=== PATIENT | male | born 1945 | race Caucasian/White ===

== ENCOUNTER 2025-01-31 07:41 | Outpatient (CLI) | payer MEDICARE, SELFPAY ==
--- OUTSIDE RECORDS SUMMARY | 2023-02-10 10:07 | XMS_ITS | Encounter Summary ---
Author Organization [facility] Healthcare Address [address] [place] [address] Care Team Providers Care Glaze Supervisor Name Role Phone Chay Chester MD Primary Care Provider [phone] Encounter Details Date Type Department Care Team (Late st Contact Info) Description 02/10/2023 10:07 AM CDT Hospital Encounter [facility] [address] [address] Social History Tobacco Use Types Packs/Day Years Used Date Smoking Tobacco: Former Cigarettes 0.5 11 Smokeless Tobacco: Former Quit: 10/24/2016 Comments:Smoking History Pac ks/day: 1 Packs Alcohol Use Standard Drinks/Week Comments Yes 0 (1 standard drink = 0.6 oz pur e alcohol) occasionally Social Connection and Isolation Panel Answer Date Recorded Frequency of Communication w ith Friends and Family More than three times a week 12/21/2018 Frequency of Social Gatherin gs with Friends and Family More than three times a week 12/21/2018 Attends Anabaptist Services More than 4 times per year 12/21/2018 Active Member of Clubs or Organizations Yes 12/21/2018 Attends Club or Organization Meetings More than 4 times per year 12/21/2018 Marital Status 12/21/2018 AUDIT-C Answer Date Recorded Q1: How often do you have a drink containing alc ohol? 2-3 times a week 10/28/2022 Q2: How many drinks containi ng alcohol do you have on a typical day when you are drinking? 1 or 2 10/28/2022 Frequency of Binge Drinking Not on file 10/08 Overall Financial Resource Strain (CARDIA) Answe r Date Recorded Difficulty of Paying Living Expenses Not hard at all 12/21/2018 PHQ-2 Answer Date Recorded PHQ-2 Total Score (If total score is 3 or more points, staff should administer the PHQ-9) 0 01/04/2025 PRAPARE - Transportation Answer Date Re corded Lack of Transportation (Medical) No 12/21/2018 Lack of Transportation (Non-Medical) No 12/21/2018 PHQ-9 Answer Date Recorded PHQ-9 Total Score 2 01/04/2025 Personal Safety Answer Date Recorded Have you ever been in or are you currently in a harmful physical or emotional relationship or is someone making you feel afraid or unsafe? 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:59 PM WOOD MILL SUPERVISOR Gender Identity Not on file Sexual Orientation Not on file documented as of this encounter Plan of Treatment Not on file documented as of this encounter Procedures Procedure Name Priority Date/Time Associated Diagnosis Comments XR KNEE BILATERAL 1 OR 2 VIEWS Schedule Routine, Read Routine (OP Routine) 02/10/2023 11:18 AM CDT Primary osteoarthritis of both knees documented in this encounter Results * XR Knee Bilateral 1 or 2 Views (02/10/2023 11:18 AM CDT) Anatomical Region Laterality Modality Lower Extremities, Knee Bilateral Computed Radiography Narrative 02/10/2023 1:12 PM CDT AP lateral views of both knees reveal the components to be in expected position without any obvious change there was no signs of wear or loosening us Reza Gonzalez MD IMG XR PROCEDURES Final Res ult documented in this encounter Visit Diagnoses Not on filedocumented in this encounter Additional Health Concerns Infection Onset Date Last Indicated Resolved Time COVID: Suspected 02/14/2024 02/14/2024 02/14/2024 11:31 AM CDT COVID19 02/14/2024 02/14/2024 02/24/2024 3:05 AM CDT COVID: Recovered Comment:Added based on recent COVID infection. 02/24/2024 02/28/2024 05/24/2024 3:[address] COVID: Suspected 04/16/2024 04/16/2024 04/16/2024 2:48 PM WOOD MILL SUPERVISOR COVID: Suspected 04/26/2024 04/26/2024 04/26/2024 2:56 PM WOOD MILL SUPERVISOR documented as of this encounter Care Teams Glaze Supervisor Relationship Specialty Start Date End Date Chay Chester MD PCP - General 08/06/16 08/09/23 documented as of this encounter
--- OUTSIDE RECORDS SUMMARY | 2024-03-29 09:30 | XMS_ITS ---
Author Organization [facility] Address [address] [place], [place] [id number] Care Team Providers Care Product Responsibility Liaison Name Role Phone Chay Chester Primary Care Provider Tony Darby Unavailable [phone] Encounters Encounter Location Date Provider Diagnosis [facility] [address] [place], [place] [id number] 03/29/2024 Tony Harris Plan Of Treatment Next Appt Details Provider Name:Tony Harris , 04/10/2025 02:15:00 PM, [address], [place], [place], [id number], Progress Notes * Danelle DICKSONOB:1945 ([age] yo M)Acc No.[id number]:03/29/2024 Progress Notes Patient: Miguel Angel HOLL[place]ORTH Provider: Suyapa Harris MD :1945 A ge:78 Y S ex:Male Date:03/29/2024 Address[facility] [facility] Pcp:Chay Chester Subjective: * Chief Complaints: * * Medical History: Objective: * Vitals: Assessment: Plan: * Treatment: * * Electronic signature of Sharad Harris MD on 01/31/2025 at 07:49 AM CDT Sign off status: Pending * Provider: Suyapa Harris MD Date: 05/29/2023 Generated for Printi ng/Faxing/eTransmitting on: 0 01/31/2025 07:49 AM CDT
--- OUTSIDE RECORDS SUMMARY | 2024-04-09 10:45 | XMS_ITS ---
Author Organization [facility] Address [address] [place], [place] [address] Care Team Providers Care Geothermal Operating Engineer Name Role Phone Chay Chester Primary Care Provider Tony Darby Unavailable [phone] Allergies No Known Allergies REASON FOR VISIT Follow - Up Medications Medication SIG (Take, Route, Frequency, Duration) Notes Start Date End Date Status traMADol HCl 50 MG 1 tablet as needed O rally 4 times a day; Duration: 15 days 11/21/2023 Active Losartan Potassium-HCTZ 50-12.5 MG 1 tablet Orally Once a day Active Levothyroxine Sodium 50 MCG 1 tablet in the morning on an empty stomach Orally Once a day Active Xarelto 20 MG 1 tablet with food O rally Once a day Active Allopurinol 100 MG 1 tablet orally once daily Active Tamsulosin HCl 0.4 MG as directed Orally nightly Active Tolterodine Tartrate ER 4 MG 1 capsule Orally Once a day Active Ozempic (1 MG/DOSE) 4 MG/3ML as directed Subcutaneous once weekly Active Fluticasone Propionate 50 MCG/ACT 2 sprays (1 spray in each nostril) Nasally Once a day Active dilTIAZem HCl ER 180 MG 1 tablet Orally Once a day Active ZyrTEC 10 MG 1 tablet Orally Once a day Active CeleXA 40 MG 0.5 tablet Orally On ce a day Active Requip 0.25 MG 1 tablet Orally nigh tly prn Active Simvastatin 10 MG 1 tablet Orally Once a day Active Gabapentin 300 MG 1 capsule Orally twi ce a day Active traZODone HCl 50 MG 1 tablet at bedtime as needed Orally as directed Active Encounters Encounter Location Date Provider Diagnosis [facility] [address] [place], [place] [id number] 04/09/2024 Tony Harris CKD (chronic kidney disease) N18.9 ; HTN (hypertension) I10 and DM (diabetes mellitus) E11.9 Assessments Encounter Date Diagnosis (ICD Code) Assessment Notes Treatment Notes Treatment Clinical Notes Section Notes 04/09/2024 CKD (chronic kidney disease) (ICD-10 - N18.9) 04/09/2024 HTN (hypertension) (ICD-10 - I10) 04/09/2024 DM (diabetes mellitus) (ICD-10 - E11.9) Plan Of Treatment Next Appt Details Provider Name:Tony Harris , 04/10/2025 02:15:00 PM, [address] [facility], [place], [place], [id number], Progress Notes * Danelle DICKSONOB:1945 ([age] yo M)Acc No.[id number]:04/09/2024 Progress Notes Patient: Miguel Angel HOLLINGSWORTH Provider: Suyapa Harris MD :1945 A ge:78 Y S ex:Male Date:04/09/2024 Address:[address] [place] [address] [facility] Pcp:Chay Chester Subjective: * Chief Complaints: * 1 . Follow - Up. * Medical History: C KD, DM, HTN, Atrial fib, BPH. * Medications: T aking Allopurinol 100 MG Tablet 1 tablet orally once daily , Taking traZODone HCl 50 MG Tablet 1 tablet at bedtime as needed Orally as directed , Taking Simvastatin 10 MG Tablet 1 tablet Orally Once a day , Taking Requip 0.25 MG Tablet 1 tablet Orally nightly prn , Taking CeleXA 40 MG Tablet 0.5 tablet Orally Once a day , Taking ZyrTEC 10 MG Tablet 1 tablet Orally Once a day , Taking Gabapentin 300 MG Capsule 1 capsule Orally twice a day , Taking dilTIAZem HCl ER 180 MG Tablet Extended Release 24 Hour 1 tablet Orally Once a day , Taking Fluticasone Propionate 50 MCG/ACT Suspension 2 sprays (1 spray in each nostril) Nasally Once a day , Taking Ozempic (1 MG/DOSE) 4 MG/3ML Solution Pen-injector as directed Subcutaneous once weekly , Taking Tolterodine Tartrate ER 4 MG Capsule Extended Release 24 Hour 1 capsule Orally Once a day , Taking Tamsulosin HCl 0.4 MG Capsule Extended Release as directed Orally nightly , Taking Xarelto 20 MG Tablet 1 tablet with food Orally Once a day , Taking Levothyroxine Sodium 50 MCG Tablet 1 tablet in the morning on an empty stomach Orally Once a day , Taking Losartan Potassium-HCTZ 50-12.5 MG Tablet 1 tablet Orally Once a day , Taking traMADol HCl 50 MG Tablet 1 tablet as needed Orally 4 times a day , Medication List reviewed and reconciled with the patient * Allergies: N .K.D.A. Objective: * Vitals: Assessment: * Assessment: 1. C KD (chronic kidney disease) - N18.9 (Primary) 2 . H TN (hypertension) - I10 3 . D M (diabetes mellitus) - E11.9 Plan: * Treatment: * * Electronic signature of Sharad Harris MD on 01/31/2025 at 07:49 AM CDT Sign off status: Pending * Provider: Suyapa Harris MD Date: 1 06/10/2023 Generated for Nenita choi/Joyce/Marta on: 0 01/31/2025 07:49 AM CDT
--- OUTSIDE RECORDS SUMMARY | 2025-01-31 07:49 | XMS_ITS | Encounter Summary ---
Author Organization [facility] Healthcare Address [address] [place] [address] Care Team Providers Care Cissp Name Role Phone Jerson Ortega MD Primary Care Provider [phone] Encounter Details Date Type Department Care Team (Late st Contact Info) Description 12/07/2024 Results Follow-Up [facility] Primary Care at [address] [address] Jerson Ortega MD [address] [place] [address] PSA screen Social History Tobacco Use Types Packs/Day Years [...] than three times a week 12/21/2018 Attends Scientologist Services More than 4 times per year [...] points, staff should administer the PHQ-9) 0 09/03/2024 PRAPARE - Transportation Answer Date Re corded Lack of Transportation (Medical) No 12/21/2018 Lack of Transportation (Non-Medical) No 12/21/2018 Personal Safety Answer Date Recorded Have you ever been in or are you currently in a harmful physical or emotional relationship or is someone making you feel afraid or unsafe? 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
--- OUTSIDE RECORDS SUMMARY | 2025-01-31 07:49 | XMS_ITS | Encounter Summary ---
Author Organization [facility] Healthcare Address [address] [place] [address] Care Team Providers Care Lead Teacher Name Role Phone Jerson Ortega MD Primary Care Provider [phone] Encounter Details Date Type Department Care Team (Late st Contact Info) Description 01/21/2025 Telephone Family Physicians [facility] [address] [place] [address] Jerson Ortega MD [address] [place] [address] Social History Tobacco Use Types Packs/Day Years [...] than three times a week 12/21/2018 Attends Moravian Services More than 4 times per year [...] on file Legal Sex Male 3:59 PM AGRICULTURE SCIENTIST Gender Identity Not on file Sexual Orientation Not on file documented as of this encounter Miscellaneous Notes * Telephone Encounter - Brando Mann - 01/21/2025 10:49 AM CDT error documented in this encounter Plan of Treatment Not on file documented as of this encounter Visit Diagnoses Not on filedocumented in this encounter Care Teams Lead Teacher Relationship Specialty Start Date End Date [place] [address] [place] [address] PCP - General Family Medicine 08/10/23 documented as of this encounter
--- OUTSIDE RECORDS SUMMARY | 2025-01-31 07:49 | XMS_ITS | Encounter Summary ---
Author Organization [facility] Healthcare Address [address] [place] [address] Care Team Providers Care Transformation Lead Name Role Phone Chay Chester MD Primary Care Provider [phone] Jerson Ortega MD Primary Care Provider [phone] Diamante Kang MA Unavailable [phone] Encounter Details Date Type Department Care Team (Late st Contact Info) Description 03/10/2020 Telephone [facility] [address] [place] [address] Melani Mejia, [place] Social History Tobacco Use Types Packs/Day Years Used Date Smoking Tobacco: Former Cigarettes 0.5 11 0 01/11/2007 - 01/11/2018 Smokeless Tobacco: Former Quit: 10/24/2016 Comments:Smoking History [...] than three times a week 12/21/2018 Attends Shinto Services More than 4 times per year 12/21/2018 Active Member of Clubs or Organizations Yes 12/21/2018 Attends Club or Organization Meetings More than 4 times per year 12/21/2018 Marital Status 12/21/2018 Overall Financial Resource Strain (CARDIA) Answe r Date Recorded Difficulty of Paying Living Expenses Not hard at all 12/21/2018 PHQ-2 Answer Date Recorded PHQ-2 Score 4 02/29/2020 PRAPARE - Transportation Answer Date Re corded Lack of Transportation (Medical) No 12/21/2018 Lack of Transportation (Non-Medical) No 12/21/2018 Sex and Gender Information Value Date Recorded Sex Assigned at Not on file Legal Sex Male 3:59 PM MAINTENANCE COORDINATOR Gender Identity Not on file Sexual Orientation Not on file documented as of this encounter Plan of Treatment Not on file documented as of this encounter Visit Diagnoses Not on filedocumented in this encounter Additional Health Concerns Infection Onset Date Last Indicated Resolved Time COVID: Suspected 05/04/2022 05/04/2022 05/04/2022 5:00 PM MAINTENANCE COORDINATOR COVID: Suspected 02/14/2024 02/14/2024 02/14/2024 11:31 AM CDT COVID19 02/14/2024 02/14/2024 02/24/2024 3:05 AM CDT COVID: Recovered Comment:Added based on recent COVID infection. 02/24/2024 02/28/2024 05/24/2024 3:[address] COVID: Suspected 04/16/2024 04/16/2024 04/16/2024 2:48 PM MAINTENANCE COORDINATOR COVID: Suspected 04/26/2024 04/26/2024 04/26/2024 2:56 PM MAINTENANCE COORDINATOR documented as of this encounter Care Teams Transformation Lead Relationship Specialty Start Date End Date Chay Chester MD PCP - General 08/06/16 08/09/23 Jerson Ortega MD [address] [place] [address] PCP - General Family Medicine 08/10/23 Diamante Kang MA [address] [place] [address] [address] [place] [address] [employer] Care Piano Teacher 02/13/24 02/13/24 documented as of this encounter
--- OUTSIDE RECORDS SUMMARY | 2025-01-31 07:49 | XMS_ITS | Encounter Summary ---
Author Organization [facility] Address [address] [place] [address] Phone Care Team Providers Care Meter Reader Inspector Name Role Phone Chay Chester MD Primary Care Provider [phone] Jerson Ortega MD Primary Care Provider [phone] Diamante Kang MA Unavailable [phone] Encounter Details Date Type Department Care Team (Late st Contact Info) Description 09/22/2017 Orders Only [facility] ProviderSpencer MD [facility] [place] [address] Social History Tobacco Use Types Packs/Day Years Used Date Smoking Tobacco: Every Day Cigarettes Smokeless Tobacco: Former Quit: 10/24/2016 Comments:Smoking History Pac ks/day: 1 Packs Alcohol Use Standard Drinks/Week Comments Yes 0 (1 standard drink = 0.6 oz pur e alcohol) Sex and Gender Information Value Date Recorded Sex Assigned at Not on file Legal Sex Male 3:59 PM CLIENT SUCCESS MANAGER Gender Identity Not on file Sexual Orientation Not on file documented as of this encounter Plan of Treatment Not on file documented as of this encounter Procedures Procedure Name Priority Date/Time Associated Diagnosis Comments DISCHARGE LABORATORY CUMULATIVE REPORT 09/22/2017 12:00 AM CDT documented in this encounter Results * DISCHARGE LABORATORY CUMULATIVE REPORT (09/22/2017 12:00 AM CDT) Narrative 09/22/2017 12:00 AM CDT Ordered by an unspecified provider. us Historical Provider LAB BLOOD ORDERABLES Lyly l Result documented in this encounter Visit Diagnoses Not on filedocumented in this encounter Additional Health Concerns Infection Onset Date Last Indicated Resolved Time COVID: Suspected 05/04/2022 05/04/2022 05/04/2022 5:00 PM CLIENT SUCCESS MANAGER COVID: Suspected 02/14/2024 02/14/2024 02/14/2024 11:31 AM CDT COVID19 02/14/2024 02/14/2024 02/24/2024 3:05 AM CDT COVID: Recovered Comment:Added based on recent COVID infection. 02/24/2024 02/28/2024 05/24/2024 3:[address] COVID: Suspected 04/16/2024 04/16/2024 04/16/2024 2:48 PM CLIENT SUCCESS MANAGER COVID: Suspected 04/26/2024 04/26/2024 04/26/2024 2:56 PM CLIENT SUCCESS MANAGER documented as of this encounter Care Teams Meter Reader Inspector Relationship Specialty Start Date End Date Chay Chester MD PCP - General 08/06/16 08/09/23 Jerson Ortega MD [address] [place] [address] PCP - General Family Medicine 08/10/23 Diamante Kang MA [address] [place] [address] DR FITZPATRICK [address] [place] [id number] [employer] Care Client Representative 02/13/24 02/13/24 documented as of this encounter
--- OUTSIDE RECORDS SUMMARY | 2025-01-31 07:49 | XMS_ITS | Patient Health Record ---
Author Organization [facility] Address [address] [facility] [address] [place], [place] [id number] Care Team Providers Care Process Manufacturing Engineer Name Role Phone Mannie Chestery Primary Care Provider Tony Darby Unavailable [phone] Allergies No Known Allergies Reason For Referral No Information Medications Medication SIG (Take, Route, Frequency, Duration) Notes Start Date End Date Status Simvastatin 10 MG 1 tablet Orally Once a day Active traZODone HCl 150 MG 1 tablet at bedtime as needed Orally as directed Active CeleXA 40 MG 0.5 tablet Orally On ce a day Active Requip 0.25 MG 1 tablet Orally nigh tly prn Active Gabapentin 300 MG 1 capsule Orally twi ce a day Active ZyrTEC 10 MG 1 tablet Orally Once a day Active Losartan Potassium-HCTZ 50-12.5 MG 1 tablet Orally Once a day Active Umeclidinium [place] 62.5 MCG/ACT 1 puff Inhalation Once a day Active Flexeril 10 MG 1 tablet at bedtime as needed Orally 3 times a day Active Allopurinol 300 MG 1 tablet orally once daily Active Tirzepatide 7.5 MG/0.5ML as directed Subcutaneous inject 0.5ml under the skin every 7 days Active Albuterol Sulfate HFA 108 (90 Base) MCG/ACT 2 puffs Inhalation every 6 hrs Active traMADol HCl 50 MG 1 tablet as needed Orally 4 times a day; Duration: 15 days 11/21/2023 Active Cyanocobalamin 1000 MCG 1 tablet Orally Once a day Active Levothyroxine Sodium 50 MCG 1 tablet in the morning on an empty stomach Orally Once a day Active Montelukast Sodium 10 MG 1 tablet Orally Once a day Active Escitalopram Oxalate 5 MG 1 tablet Orall y Once a day Active Ozempic (1 MG/DOSE) 4 MG/3ML as directed Subcutaneous once weekly Not-Taking Pantoprazole Sodium 40 MG 1 tablet Orall y Once a day Active Ondansetron HCl 4 MG 1 tablet Orally zeus ry 6 hours Active Louise 5-325 MG 1-2 tablets Orally every 4 hrs Active dilTIAZem HCl ER 180 MG 1 tablet Orally Once a day Active Tolterodine Tartrate ER 4 MG 1 capsule Orally Once a day Active Fluticasone Propionate 50 MCG/ACT 2 sprays (1 spray in each nostril) Nasally Once a day Active Vibramycin 100 MG 1 capsule Orally twi ce a day Active Xarelto 20 MG 1 tablet with food Orally Once a day Active Tamsulosin HCl 0.4 MG as directed Orally nightly Active Social History Tobacco Use: Social History Observation Description Date Details (start date - stop date) Current Smoker NA - NA Alcohol: Question Answer Notes Did you have a drink contain ing alcohol in the past year? Yes How often did you have a dri nk containing alcohol in the past year? Two to four times a month (2 points) How many drinks did you have on a typical day when you were drinking in the past year? 1 or 2 (0 points) How often did you have six o r more drinks on one occasion in the past year? Never (0 points) Points 2 Interpretation Negative Smoking Question Answer Notes Are you a: Current smoker How often do you smoke? every day How many cigarettes do you smoke in a day? 6-10 Are you interested in quitting? Thinking about q uitting Problems Problem Type SNOMED Code ICD Code Onset Dates Problem Status W/U Status Risk Notes Problem DM - Diabetes mellitus (62450492) DM (diabetes mellitus) (E11.9) Active confirmed hgba1c 6.4 Problem Atrial fibrillation (15743995) Atrial fibrillation (I48.91) Active confirmed on zarelto Problem Chronic kidney disease (235152167) CKD (chronic kidney disease) (N18.9) Active confirmed creat is stable at 2.3 Problem Obesity (556721602) Obesity (E66.9) Active confirmed pt is crooks s lost 8 lbs Problem Hypertension (17967202) HTN (hypertension) (I10) Active confirmed BP is controlled Vital Signs Heart Rate 82 /min 12/12/2024 Temperature 97.3 degrees Fahrenheit 12/12/2024 Blood pressure diastolic 79 mm Hg 12/12/2024 Height 72 in 12/12/2024 Blood pressure systolic 121 mm Hg 12/12/2024 Weight 282.2 lbs 12/12/2024 BMI 38.27 kg/m2 12/12/2024 Encounters Encounter Location Date Provider Diagnosis [facility] [address] [place], [place] [id number] 05/23/2024 Tony Harris CKD (chronic kidney disease) N18.9 ; HTN (hypertension) I10 ; DM (diabetes mellitus) E11.9 ; Obesity E66.9 and Atrial fibrillation I48.[address] [facility] [id number] [place] [address] [address] [place], [place] [id number] 09/03/2024 Tony Harris CKD (chronic kidney disease) N18.9 ; DM (diabetes mellitus) E11.9 ; HTN (hypertension) I10 ; Obesity E66.9 and Atrial fibrillation I48.91 [facility] [address] [place], [place] [id number] 12/12/2024 Tony Harris CKD (chronic kidney disease) N18.9 ; HTN (hypertension) I10 ; DM (diabetes mellitus) E11.9 ; Obesity E66.9 and Low back pain, unspecified M54.50 Assessments Encounter Date Diagnosis (ICD Code) Assessment Notes Treatment Notes Treatment Clinical Notes Section Notes 05/23/2024 CKD (chronic kidney disease) (ICD-10 - N18.9) 05/23/2024 HTN (hypertension) (ICD-10 - I10) Blood pressure measurement material was published 09/03/2024 DM (diabetes mellitus) (ICD-10 - E11.9) hgba1c ordered.. Pt states he has switched from ozempic to Mounjaro. (RN) is present in the room. 09/03/2024 CKD (chronic kidney disease) (ICD-10 - N18.9) creat is lower at 2.09 (RN) is present in the room. 12/12/2024 CKD (chronic kidney disease) (ICD-10 - N18.9) creat is stable at 2.3 His , who is a nurse, is present in the room. 12/12/2024 HTN (hypertension) (ICD-10 - I10) BP is controlled His , who is a nurse, is present in the room. 09/03/2024 HTN (hypertension) (ICD-10 - I10) (RN) is present in the room. 12/12/2024 DM (diabetes mellitus) (ICD-10 - E11.9) hgba1c 6.4 His , who is a nurse, is present in the room. 05/23/2024 DM (diabetes mellitus) (ICD-10 - E11.9) 05/23/2024 Obesity (ICD-10 - E66.9) 09/03/2024 Obesity (ICD-10 - E66.9) pt is advised to lose weight. (RN) is present in the room. 12/12/2024 Obesity (ICD-10 - E66.9) pt is has lost 8 lbs His , who is a nurse, is present in the room. 12/12/2024 Low back pain, unspecified (ICD-10 - M54.50) His , who is a nurse, is present in the room. 09/03/2024 Atrial fibrillation (ICD-10 - I48.91) on michaelleto (RN) is present in the room. 05/23/2024 Atrial fibrillation (ICD-10 - I48.91) 05/23/2024 Other lab tests before next visit 09/03/2024 Other lab tests before next visit (RN) is present in the room. 12/12/2024 Other lab tests before next visit His , who is a nurse, is present in the room. Plan Of Treatment Pending Test Test Name Order Date Sedimentation Rate-Westergren 06/08/2023 Comp. Metabolic Panel (14) 07/11/2023 Prot+CreatU (Random) 11/21/2023 Prot+CreatU (Random) 07/11/2023 Prot+CreatU (Random) 05/23/2024 Prot+CreatU (Random) 09/03/2024 Comp Metabolic Panel 12/12/2024 Comp Metabolic Panel 09/03/2024 Comp Metabolic Panel 05/23/2024 Comp Metabolic Panel 11/21/2023 Comp Metabolic Panel 06/08/2023 CBC With Auto Diff 06/08/2023 CBC With Auto Diff 07/11/2023 CBC With Auto Diff 11/21/2023 CBC With Auto Diff 05/23/2024 CBC With Auto Diff 09/03/2024 CBC With Auto Diff 12/12/2024 Prot/Creat Ur Rnd 12/12/2024 HEMOGLOBIN A1C 05/23/2024 HEMOGLOBIN A1C 11/21/2023 HEMOGLOBIN A1C 07/11/2023 HEMOGLOBIN A1C 12/12/2024 HEMOGLOBIN A1C 09/03/2024 Next Appt Details Provider Name:Tony Harris , 04/10/2025 02:15:00 PM, [address], [address] [facility], [place], [place], [id number], Insurance Providers Payer Name Payer Address Payer Phone Subscriber Number Group Number Insured Name Patient Relationship to Insured Coverage Start Date Coverage End Date [employer] Medicare PPO [address] [place], [place] [phone] [id number] Miguel Angel Starr Self - patient is the insured Medical (General) History Medical History History ICD Code CKD DM HTN atrial fib BPH
--- OUTSIDE RECORDS SUMMARY | 2025-01-31 07:49 | XMS_ITS | Encounter Summary ---
Author Organization [facility] Healthcare Address [address] [place] [address] Care Team Providers Care Operations Developer Name Role Phone Jerson Ortega MD Primary Care Provider [phone] Encounter Details Date Type Department Care Team (Latest Contact Info) Description 03/23/2024 [place] [address] [facility] [address] [place], [place] [id number] Social History Tobacco Use Types Packs/Day Years [...] than three times a week 12/21/2018 Attends [employer] Services More than 4 times per year [...] points, staff should administer the PHQ-9) 0 01/30/2024 PRAPARE - Transportation Answer Date Re corded Lack of Transportation (Medical) No 12/21/2018 Lack of Transportation (Non-Medical) No 12/21/2018 Personal Safety Answer Date Recorded Have you ever been in or are you currently in a harmful physical or emotional relationship or is someone making you feel afraid or unsafe? 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 02/24/2024 02/28/2024 05/24/2024 3:[address] COVID: Suspected 04/16/2024 04/16/2024 04/16/2024 2:48 PM LAUNDRY AGENT COVID: Suspected 04/26/2024 04/26/2024 04/26/2024 2:56 PM LAUNDRY AGENT documented as of this encounter Care Teams Operations Developer Relationship Specialty Start Date End Date [place] [address] PCP - General Family Medicine 08/10/23 documented as of this encounter
--- OUTSIDE RECORDS SUMMARY | 2025-01-31 07:49 | XMS_ITS | Encounter Summary ---
Author Organization [facility] Address [address] [place] [address] Care Team Providers Care Vat Washer Name Role Phone Jerson Ortega MD Primary Care Provider [phone] Reason for Visit * Reason Onset Date Comments Medical Question/Miscellaneous 01/24/2025 Call Back 01/24/2025 Encounter Details Date Type Department Care Team (Late st Contact Info) Description 01/24/2025 Telephone Family Physicians [facility] [address] [facility] [place] [address] Jerson Ortega MD [address] [facility] [place] [address] Medical Question/Miscellaneous ; Call Back Social History Tobacco Use Types Packs/Day Years [...] than three times a week 12/21/2018 Attends [employer] Services More than 4 times per year [...] on file 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 * Telephone Encounter - Mago Crespo MA - 01/25/2025 9:58 AM CDT Resent the dexcom G7 , did we receive fax from yesterday? * Telephone Encounter - Andreina Spencer - 01/25/2025 9:37 AM CDT Call Back Caller???s Concern: Yvette called with Kenji with [facility] stating they did not received script for Dexcom G7 sensor and if the request for for diabetic supplies was received that was faxed yesterday. Kenji stated you can fax order to their emergency fax# [phone]. Does message need to be routed? Yes-Action Needed * Telephone Encounter - Jana Yap - 01/24/2025 3:50 PM CDT Medical Question/Miscellaneous Caller???s Concern: Cinthya with [facility] called asking if request for diabetic supplies faxed 01/22 were received. I advised her that I didn't see anything in chart. She is going to fax again. Does message need to be routed? No documented in this encounter Plan of Treatment Not on file documented as of this encounter Visit Diagnoses Not on filedocumented in this encounter Care Teams Vat Washer Relationship Specialty Start Date End Date Jerson Ortega MD [address] [place] [address] PCP - General Family Medicine 08/10/23 documented as of this encounter
--- OUTSIDE RECORDS SUMMARY | 2025-01-31 07:49 | XMS_ITS | Encounter Summary ---
Author Organization [facility] Healthcare Address [address] [place] [address] Care Team Providers Care Technical Manager Chemical Plant Name Role Phone Jerson Ortega MD Primary Care Provider [phone] Reason for Visit * Reason Onset Date Comments Symptom Based Call 04/25/2024 Encounter Details Date Type Department Care Team (Late st Contact Info) Description 04/25/2024 Telephone Family Physicians [address] [address] Jerson Ortega MD [address] [place] [address] [place] [address] Symptom Based Call Social History Tobacco Use Types Packs/Day Years [...] than three times a week 12/21/2018 Attends [employer] Services More than 4 times per year [...] on file 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 02/24/2024 02/28/2024 05/24/2024 3:[address] COVID: Suspected 04/26/2024 04/26/2024 04/26/2024 2:56 PM MANAGER SOFTWARE DEVELOPMENT documented as of this encounter Care Teams Technical Manager Chemical Plant Relationship Specialty Start Date End Date [place] [address] PCP - General Family Medicine 08/10/23 documented as of this encounter
--- OUTSIDE RECORDS SUMMARY | 2025-01-31 07:49 | XMS_ITS | Encounter Summary ---
Author Organization [facility] Address [address] [place] [address] Phone Care Team Providers Care Photographic Equipment Mechanic Name Role Phone Chay Chester MD Primary Care Provider [phone] Derek Schmidt DPM Unavailable [phone] Reason for Visit * Reason Comments Medication Refill Encounter Details Date Type Department Care Team (Late st Contact Info) Description 07/15/2020 Refill [facility] - Neurology [facility] [address] [place] [id number] Dat Luque MD [address] [place] [phone] Medication Refill Social History Tobacco Use Types Packs/Day Years Used Date Smoking Tobacco: Former Cigarettes 1.5 40 0 01/07/1978 - 01/07/2018 Smokeless Tobacco: Never Alcohol Use Standard Drinks/Week Comments Yes 0 (1 standard drink = 0.6 oz pur e alcohol) occasionally Sex and Gender Information Value Date Recorded Sex Assigned at Not on file Legal Sex Male 11:00 PM CDT Gender Identity Not on file Sexual Orientation Not on file documented as of this encounter Plan of Treatment Not on file documented as of this encounter Visit Diagnoses Not on filedocumented in this encounter Care Teams Photographic Equipment Mechanic Relationship Specialty Start Date End Date Chay Chester MD PCP - General Internal Medicine 11/02/16 Derek Schmidt DPM Consulting Physician Podiatry 11/02/16 documented as of this encounter
--- OUTSIDE RECORDS SUMMARY | 2025-01-31 07:49 | XMS_ITS | Clinical Summary ---
Author Organization [facility] Address [address] [place] [address] Care Team Providers Care Shield Runner Name Role Phone Jerson Arana MD Primary Care Provider [phone] Allergies Active Allergy Reactions Criticality Noted Date Comments Adhesive Rash Medium 05/16/2020 Medications blood-glucose meter (ONETOUCH ULTRA2) kit use to check glucose 2x daily 1 kit 0 014 Active insulin syringe-needl e U-100 (BD INSULIN SYRINGE ULTRA-FINE) 1 mL 31 gauge x 5/16 syringe USE ONE SYRINGE FOR INJECTION TWICE A DAY 100 Syringe 3 015 Active blood glucose diagnostic (ONETOUCH ULTRA TEST) strip check glucose 3x daily 300 strip 3 014 Active pen needle, diabetic 31 gauge x 1/4 needle use with insulin pen 1/day 1 Box 3 011 Active docusate sodium (COLACE) 100 mg capsuleIndica tions:constip ation Take 1 capsule (100 mg total) by mouth 2 (two) times a day Activ e syringe with needle (BD LUER-JENNIFER SYRINGE) 3 mL 25 gauge x 1 syringe Use to inject b12 once monthly 3 Syringe 3 019 Active syringe with needle, safety (BD Integra Syringe) 3 mL 25 gauge x 1 syringe USE TO INJECT B12 ONCE MONTHLY 3 each 3 023 Active cetirizine (ZyrTEC) 10 mg tablet Take 1 tablet (10 mg total) by mouth daily 90 tablet Active cyclobenzapri ne (FLEXERIL) 10 mg tabletIndicat ions:Muscle Spasm Take 1 tablet (10 mg total) by mouth 3 (three) times a day as needed for muscle spasms 30 tablet 023 Active rOPINIRole (Requip) 0.25 mg tablet Take 1 tablet (0.25 mg total) by mouth nightly as needed (as needed) 90 tablet 11 Active fluticasone propionate (FLONASE) 50 mcg/actuation nasal spray Administer 2 sprays into each nostril daily 16 g Active traMADoL (ULTRAM) 50 mg tablet Active umeclidinium (Incruse Ellipta) 62.5 mcg/actuation blister with device Inhale 1 puff (62.5 mcg total) daily 90 each Active albuterol HFA (PROVENTIL HFA,VENTOLIN HFA,PROAIR HFA) 90 mcg/actuation inhaler Inhale 2 puffs every 6 (six) hours as needed for wheezing 3 each 4 Active tamsulosin (FLOMAX) 0.4 mg extended release capsuleIndica tions:Benign prostatic hyperplasia with nocturia Take 1 capsule (0.4 mg total) by mouth nightly 90 capsule Active tolterodine LA (DETROL LA) 4 mg 24 hr capsuleIndica tions:Mixed stress and urge incontinence, Benign prostatic hyperplasia with nocturia Take 1 capsule (4 mg total) by mouth daily 90 capsule 3 024 Active ondansetron (ZOFRAN) 4 mg tabletIndicat ions:Nausea and Vomiting Take 1 tablet (4 mg total) by mouth every 6 (six) hours as needed for nausea or vomiting 15 tablet 024 Active lancets (OneTouch Delica Lancets) 33 gauge misc Use twice daily to check blood sugars 200 each 3 024 Active ipratropium-a lbuteroL (DUO-NEB) 0.5-2.5 mg/3 mL nebulizer solution Take 3 mL by nebulization every 6 (six) hours 180 mL Active Additional Information Patient taking differently:3 mL nebulizationEvery 6 hours PRN, pneumonia, Reported on 01/04/2025 doxycycline (VIBRAMYCIN) 100 mg capsule Take 1 tablet/capsule (100 mg total) by mouth 2 (two) times a day 20 capsule Active montelukast (SINGULAIR) 10 mg tablet Take 1 tablet (10 mg total) by mouth nightly 90 tablet 3 024 2024 Active insulin lispro (HumaLOG) 100 unit/mL pen for injection Inject 40-50 Units under the skin 3 (three) times a day before meals 45 mL 3 Active LANTUS 100 unit/mL (3 mL) pen for injectionIndi cations:Type 2 diabetes mellitus with hyperglycemia , with long-term current use of insulin (HCC) Inject 50 Units under the skin nightly 45 mL 3 Active levothyroxine (SYNTHROID) 50 mcg tablet TAKE 1 TABLET BY MOUTH EVERY DAY 90 tablet [address] (PROTONIX) 40 mg EC tablet TAKE 1 TABLET BY MOUTH EVERY DAY 90 tablet 1 Active Additional Information Patient taking differently:40 mg oralDaily PRN, acid reflux, Reported on 01/04/2025 traZODone (DESYREL) 150 mg tablet Take 1 tablet (150 mg total) by mouth nightly as needed for sleep for sleep 90 tablet 2 025 2025 Active cyanocobalami n (Vitamin B-12) 1,000 mcg/mL injection Inject 1 mL (1,000 mcg total) into the muscle as instructed every 30 (thirty) days 3 mL 3 025 2025 Active insulin syringe-needl e U-100 1 mL 31 gauge x 5/16 syringe Use to inject 1-4 times daily as directed. 300 each 4 Active promethazine- DM (PROMETHAZINE -DM) 1.25-3 mg/mL syrupIndicati ons:Viral sinusitis Take 5 mL by mouth 4 (four) times a day as needed for cough 120 mL 05/21/2 025 Active allopurinoL (ZYLOPRIM) 300 mg tablet TAKE 1 TABLET BY MOUTH EVERY DAY 90 tablet 3 025 Active simvastatin (ZOCOR) 10 mg tablet TAKE 1 TABLET BY MOUTH EVERY DAY AT NIGHT 90 tablet 3 025 Active Xarelto 20 mg tablet TAKE 1 TABLET BY MOUTH EVERY DAY 90 tablet 3 025 Active gabapentin (NEURONTIN) 300 mg capsule TAKE 1 CAPSULE BY MOUTH TWICE A DAY 180 capsule 3 025 Active losartan-hydr oCHLOROthiazi de (HYZAAR) 50-12.5 mg per tablet TAKE 1 TABLET BY MOUTH EVERY DAY 100 tablet 1 Active pen needle, diabetic (BD Ultra-Fine Short Pen Needle) 31 gauge x 5/16 needleIndicat ions:Type 2 diabetes mellitus with hyperglycemia , with long-term current use of insulin ([facility]) INJECT 5 TIMES DAILY 400 each 3 025 Active icosapent ethyL (VASCEPA) 1 gram capsuleIndica tions:Hyperli pidemia associated with type 2 diabetes mellitus (HCC) TAKE 2 CAPSULES BY MOUTH TWICE A DAY WITH MEALS(2+2=4 CAPSULES DAILY) 360 capsule 3 025 Active dilTIAZem XR 180 mg 24 hr capsule TAKE 1 CAPSULE BY MOUTH EVERY DAY 90 capsule 3 025 Active ondansetron (ZOFRAN) 4 mg tabletIndicat ions:Nausea Take 1 tablet (4 mg total) by mouth every 8 (eight) hours as needed for nausea or vomiting 20 tablet Active tirzepatide (Mounjaro) 12.5 mg/0.5 mL pen injector injectionIndi cations:Type 2 diabetes mellitus with hyperglycemia , with long-term current use of insulin ([facility]) Inject 0.5 mL (12.5 mg total) under the skin every 7 days 2 mL 025 Active colchicine (COLCRYS) 0.6 mg tablet Take 1 tablet (0.6 mg total) by mouth daily for 5 days 5 tablet 025 Active empagliflozin (JARDIANCE) 10 mg tabletIndicat ions:Chronic Kidney Disease,type 2 diabetes mellitus Take 1 tablet (10 mg total) by mouth daily with breakfast 90 tablet 3 025 2025 Active escitalopram (LEXAPRO) 5 mg tablet Take 1 tablet (5 mg total) by mouth daily 90 tablet 3 025 2025 Active blood-glucose sensor (Dexcom G7 Sensor) device Dexcom G7 sensor use for 10 days to monitor blood sugar. 9 each 3 Active blood-glucose sensor (Dexcom G7 Sensor) device 2024 Discontinued(D uplicate order) escitalopram (LEXAPRO) 5 mg tablet Take 1 tablet (5 mg total) by mouth daily 90 tablet 1 025 2024 Discontinued blood-glucose sensor (Dexcom G7 Sensor) device Dexcom G7 sensor use for 10 days to monitor blood sugar. 9 each 3 025 2024 Discontinued(R eorder) blood-glucose sensor (Dexcom G7 Sensor) device Dexcom G7 sensor use for 10 days to monitor blood sugar. 9 each 3 025 2024 Discontinued(R eorder) Active Problems Problem Noted Date Diagnosed Date Other constipation 04/30/2024 Acute bronchiolitis 04/30/2024 Assessment & Plan (04/30/2024 7:31 PM PUGGER HELPER): Complete antibiotics. Continue use of nebulizer or albuterol HFA as discussed. Start on prednisone taper. History of bilateral knee replacement 03/06/2024 Assessment & Plan (03/06/2024 2:37 PM CDT): The patient is doing well following bilateral total knee replacements. Ideally should continue working on weight reduction. He should continue with his total knee protocol would recommend follow-up films in 12 months with his annual exam Anemia due to stage 4 chronic kidney disease 01/2024 Assessment & Plan (01/20/2025 9:17 PM CDT): Stable, no major changes, no significant loss of energy Continue with appropriate management of iron levels Assessment & Plan (09/03/2024 3:09 PM CDT): Stable, hemoglobin hematocrit mildly improved from prior; continue to monitor regularly Assessment & Plan (06/04/2024 4:41 PM PUGGER HELPER): Stable, no significant fatigue or weakness Last hemoglobin close to 10 Will continue to monitor closely Assessment & Plan (02/15/2024 2:32 PM CDT): Patient has chronic anemia; for the 1st time hemoglobin and crit have decreased with hemoglobin below 10; would recommend follow-up with mushroom picker to evaluate if patient would benefit from epoetin Gastroesophageal reflux disease without esophagi tis 02/01/2024 Assessment & Plan (02/01/2024 5:54 PM CDT): Not well controlled; wakes up with symptoms of needing to throw up though no episodes of throwing up Encouraged patient to use pantoprazole 40 mg daily to help with long-term symptom control Chronic obstructive pulmonary disease, unspecifi ed 01/30/2024 Assessment & Plan (09/03/2024 3:09 PM CDT): Stable, well controlled, patient reports no dyspnea on exertion; active, working on side Continue albuterol p.r.n., Incruse Ellipta 1 puff daily Assessment & Plan (06/04/2024 4:41 PM PUGGER HELPER): Stable, well controlled, breathing well, no major issues Quit smoking 6-7 months ago Continue Incruse Ellipta 1 puff daily, albuterol p.r.n. Assessment & Plan (02/01/2024 5:54 PM CDT): Not well controlled; continues to have significant coughing, some improvement steroids then comes back Productive with small amounts of phlegm PFTs demonstrated air trapping Will start Incruse Ellipta 1 puff daily Periumbilical abdominal pain 01/17/2023 Assessment & Plan (01/24/2023 10:35 AM CDT): Resolved and likely due to his Ozempic. Improving with holding medication. Follow-up with his biostatistics director for management. Suggested waiting till symptoms completely resolved and then restarting Ozempic at a lower dose and up titrating slowly. Assessment & Plan (01/17/2023 5:55 PM CDT): I suspect his discomfort is related to recent switching to Ozempic and medication side effects. Recommend holding Ozempic until further notice. Check labs including hepatic function panel amylase lipase CBC urinalysis. If fails to improve will proceed with imaging. If develops fever severe pain or unrelenting nausea vomiting, he knows to go to ER for further evaluation. Anemia 10/28/2022 Assessment & Plan (10/28/2022 5:13 PM CDT): Laboratory workup and call back for results. Bronchitis 09/14/2021 Assessment & Plan (05/04/2022 5:02 PM PUGGER HELPER): Worsening covid and flu swab negative Azithromycin ordered and tessalon perles as needed Continue flonase zyrtec F/u prn Assessment & Plan (09/14/2021 2:36 PM CDT): Azithromycin and use leftover Tessalon Perles as needed. Call back if no improvement. Would also recommend he continue his Zyrtec and restart fluticasone for possible allergy component. History of colonic polyps 07/24/2021 Overview (07/24/2021): Added automatically from request for surgery [id number] Acute maxillary sinusitis 04/10/2021 Assessment & Plan (04/10/2021 10:51 AM PUGGER HELPER): Fluticasone amoxicillin and sinus rinses and call back if no improvement. Lower urinary tract symptoms (LUTS) 12/31/2020 Insomnia 10/24/2020 Assessment & Plan (10/28/2022 5:15 PM CDT): Recommended consistent usage of his trazodone 50 mg at bedtime. If no improvement after 1 week, increase to 100 mg consistently. Thereafter can try 3 tablets at a time. Call back for recommendations if no success. Assessment & Plan (06/07/2022 5:50 AM PUGGER HELPER): Retry trazodone and discussed side effects and call back if any develop. Assessment & Plan (10/24/2020 11:50 AM CDT): Sleep hygiene discussed. Trazodone as needed. Call back if no improvement Paresthesias in left hand 10/24/2020 Assessment & Plan (10/24/2020 11:47 AM CDT): Wrist splint at bedtime. Call back if worsens for nerve conduction study and surgical referral. Urinary frequency 08/05/2020 Urinary urgency 08/05/2020 Complete rupture of rotator cuff 04/28/2020 Assessment & Plan (04/28/2020 4:17 PM PUGGER HELPER): Patient's history and exam is consistent with a full-thickness tear of the rotator cuff. Would recommend an MRI to evaluate the integrity of the cuff initiate appropriate treatment once results are available. Contusion of right knee 04/28/2020 Assessment & Plan (04/28/2020 4:17 PM PUGGER HELPER): Patient's knee is stable and has no evidence of fracture or loosening of his total knee implant. He has a contusion and likely bled more than average being on blood thinners. Would expect this to continue resorb in the pain to subside but it may take 4-6 weeks. Syncope 04/22/2020 Assessment & Plan (04/22/2020 5:31 PM PUGGER HELPER): He has had recent unremarkable stress test and echocardiogram. CardioNet monitor and call back for results. Avoid driving until results returned. Avoid other dangerous situations such as being on a ladder, swimming, cetera. Subclinical hypothyroidism 05/10/2019 Assessment & Plan (12/13/2023 11:25 AM CDT): Clinically and biochemically euthyroid. No medication changes. Update TSH. Assessment & Plan (08/10/2023 2:23 PM CDT): Update TFTs Will adjust dose of Levothyroxine, if indicated Assessment & Plan (05/04/2023 11:04 AM PUGGER HELPER): With fatigue and increasing anemia, will try levothyroxine to see if any benefit. Assessment & Plan (10/28/2022 5:13 PM CDT): Check TSH and free T4 before next visit. Assessment & Plan (06/07/2022 5:48 AM PUGGER HELPER): Check TSH and FT4 before next visit. Assessment & Plan (12/21/2021 6:31 AM CDT): Asymptomatic and check TSH and FT4 every 612 months. Assessment & Plan (04/28/2021 9:56 AM PUGGER HELPER): Remains asymptomatic will check TSH and free T4 before next visit. Assessment & Plan (10/24/2020 11:50 AM CDT): He is asymptomatic and will check TSH and FT4 next week and call back for results. Assessment & Plan (04/22/2020 5:29 PM PUGGER HELPER): No symptoms of hypothyroidism and will check TSH and free T4 before next visit. Assessment & Plan (10/23/2019 9:42 AM CDT): TSH remains borderline as is free T4. I am not totally convinced of his symptomatology yet therefore would recommend continued observation and check again before next visit. Assessment & Plan (05/10/2019 10:15 AM PUGGER HELPER): Check TSH and free T4 before next visit before starting medication. Class 2 severe obesity due t o excess calories with serious comorbidity and body mass index (BMI) of 38.0 to 38.9 in adult 05/10/2019 Assessment & Plan (09/03/2024 3:08 PM CDT): Stable, weight is generally stable over the past 4 months; encourage weight loss through dietary changes limiting high-calorie foods and increasing physical activity 30 minutes daily Assessment & Plan (06/04/2024 4:40 PM PUGGER HELPER): Stable, no major changes to weight; encourage working on dietary changes to help reduce weight Assessment & Plan (02/01/2024 5:54 PM CDT): Not well controlled; encouraged continued work on weight loss, patient has low appetite Continue Ozempic, may increase dose to help with weight Assessment & Plan (09/14/2023 10:10 AM CDT): Stable, improving; patient reports he has been working on eating less; has been helping him reduce portion sizes; patient reports decreased appetite Continue Ozempic 1 mg weekly for management of blood sugar Assessment & Plan (10/28/2022 5:14 PM CDT): Patient is encouraged to lose weight with a combination of caloric reduction and increased exercise. Various strategies discussed. The long-term risks associated with continued morbid obesity discussed. Assessment & Plan (04/22/2020 5:30 PM PUGGER HELPER): Patient is encouraged to lose weight with a combination of caloric reduction and increased exercise. Various strategies discussed. The long-term risks associated with continued morbid obesity discussed. Assessment & Plan (10/23/2019 9:44 AM CDT): Patient is encouraged to lose weight with a combination of caloric reduction and increased exercise. Various strategies discussed. The long-term risks associated with continued morbid obesity discussed. Assessment & Plan (05/10/2019 10:17 AM PUGGER HELPER): Patient is encouraged to lose weight with a combination of caloric reduction and increased exercise. Various strategies discussed. The long-term risks associated with continued morbid obesity discussed. Acquired subluxation of left patella 05/01/2019 Assessment & Plan (05/01/2019 12:16 PM PUGGER HELPER): Patient has noted some instability the left knee developing. He is not unstable in terms of his ligamentous support but he may have some tracking issues of the patella. Physical therapy to work on a VMO conditioning program may be helpful. Weight loss would likely be beneficial as well Failed orthopedic implant 12/12/2018 Assessment & Plan (12/12/2018 9:29 AM CDT): Patient appears to have dislodged his patella implant when he misstepped.. I would recommend open revision of patella on assessment of the polyethylene liner. If he has damage to the liner than liner exchange may be required as well. The other metal component on the femur and tibia appeared to be well attached and no evidence of fracture or dislocation occurred. Patient is also on Xarelto for his atrial fibrillation and will need to discontinue it as he has done in the past prior to surgery. Patient likely be admitted to the hospital for a day to following this procedure. The risks of knee replacement surgery include infection, incisional numbness, keloid formation, neurovascular compromise, blood loss, blood clots, fracture dislocation, wherewith possible need for revision, medical and anesthetic risks including . The risks and benefits were explained the patient is wanting to proceed and we will schedule surgery when convenient for the patient. Change in bowel habits 08/09/2018 Overview (08/09/2018): Added automatically from request for surgery [id number] [employer] maintenance 10/06/2017 Assessment & Plan (10/28/2022 5:14 PM CDT): Flu shot each February. New COVID booster when available. Prevnar 13/Pneumovax 23 completed. Tetanus booster due October 2028. Shingrix completed. Colonoscopy due September 2026. Will see him back in 6 months with lab sooner if needed. Assessment & Plan (12/21/2021 6:32 AM CDT): Flu shot each February. COVID vaccine update this winter. Pneumovax completed. Tetanus booster due October 2028. Shingrix completed. Colonoscopy due September 2026. Will see him back in 6 months with lab sooner if needed. Assessment & Plan (10/24/2020 11:50 AM CDT): We discussed a comprehensive list of medical conditions and proposed recommendations for each. We discussed the importance of increased exercise, fall prevention, proper nutrition, and suggested joining [facility] to accomplish most of these goals. Patient was given an age appropriate Medicare preventive services checklist. Please see the EMR regarding details of their health risk assessment and preventive services checklist. Will see him back in 6 months with lab sooner if Assessment & Plan (10/23/2019 9:44 AM CDT): We discussed a comprehensive list of medical conditions and proposed recommendations for each. We discussed the importance of increased exercise, fall prevention, proper nutrition, and suggested joining [facility] to accomplish most of these goals. Patient was given an age appropriate Medicare preventive services checklist. Please see the EMR regarding details of their health risk assessment and preventive services checklist. Will see him back in 6 months with lab sooner if needed. Assessment & Plan (10/18/2018 10:50 AM CDT): We discussed a comprehensive list of medical conditions and proposed recommendations for each. We discussed the importance of increased exercise, fall prevention, proper nutrition, and suggested joining [facility] to accomplish most of these goals. Patient was given an age appropriate Medicare preventive services checklist. Please see the EMR regarding details of their health risk assessment and preventive services checklist. Will see him back in 6 months with lab sooner if needed. Assessment & Plan (10/06/2017 4:54 PM CDT): We discussed a comprehensive list of medical conditions and proposed recommendations for each. We discussed the importance of increased exercise, fall prevention, proper nutrition, and suggested joining [facility] to accomplish most of these goals. Patient was given an age appropriate Medicare preventive services checklist. Please see the EMR regarding details of their health risk assessment and preventive services checklist. Will see him back in 6 months with fasting lab sooner if needed. Lung nodules 10/06/2017 Overview (10/24/2020): Benign findings ct chest 06/2018 after 2 year f/u thus deemed benign. Assessment & Plan (10/18/2018 10:52 AM CDT): Repeat CT chest June 2018 showed no changes since August 2016 therefore benign process probable. No further recommendations for follow-up. Assessment & Plan (10/06/2017 4:56 PM CDT): No changes on September 2017 CT chest. Repeat low-dose CT chest September 2018. Lymphedema of both lower extremities 09/27/2017 Assessment & Plan (09/27/2017 10:45 AM CDT): Patient may find intermittent elevation legs and support hose helpful is a counter measure for swelling. He has relative contraindication to tight constricting wraps for his legs with his underlying diabetes Anxiety disorder 11/03/2016 Diabetic polyneuropathy 11/02/2016 Assessment & Plan (09/03/2024 3:07 PM CDT): Stable, continue gabapentin 300 mg b.i.d. Assessment & Plan (06/04/2024 4:40 PM PUGGER HELPER): Stable, generally well controlled; occasional symptoms, mostly restless leg Symptoms occur 1-2 3 times per week Continue gabapentin 300 mg daily, ropinirole 0.25 mg nightly p.r.n. Assessment & Plan (10/28/2022 5:11 PM CDT): Controlled on gabapentin. Assessment & Plan (12/21/2021 6:30 AM CDT): Well controlled on gabapentin. Assessment & Plan (10/24/2020 11:50 AM CDT): Remains well controlled on gabapentin. Assessment & Plan (10/23/2019 9:43 AM CDT): Remains stable on gabapentin. Assessment & Plan (05/10/2019 10:16 AM PUGGER HELPER): Stable on gabapentin. Assessment & Plan (10/18/2018 10:53 AM CDT): Stable on gabapentin. Assessment & Plan (04/04/2018 11:59 AM PUGGER HELPER): Stable on gabapentin. Assessment & Plan (10/06/2017 4:53 PM CDT): Stable on gabapentin. Assessment & Plan (06/01/2017 3:59 PM PUGGER HELPER): Stable on gabapentin. Lumbar radiculopathy 11/02/2016 Assessment & Plan (10/18/2018 10:55 AM CDT): Humphrey and Flexeril as needed on his trip to [place]. Warned of sedating side effects. Benign prostatic hyperplasia 10/25/2016 Assessment & Plan (06/04/2024 4:40 PM PUGGER HELPER): Stable, well controlled; urination has been good per patient, continue tamsulosin 0.4 mg nightly Assessment & Plan (06/07/2022 5:48 AM PUGGER HELPER): Stable on his tamsulosin. Assessment & Plan (10/06/2017 4:53 PM CDT): PSA normal and no complaints today. Overactive bladder 10/25/2016 Assessment & Plan (05/10/2019 10:15 AM PUGGER HELPER): Continue VESIcare for now but referred to the Urology for urodynamic testing and other workup of his urge incontinence. Assessment & Plan (06/01/2017 3:59 PM PUGGER HELPER): Stable on VESIcare. Allergic rhinitis 10/25/2016 Assessment & Plan (05/10/2019 10:17 AM PUGGER HELPER): Add Flonase to Zyrtec. Tobacco abuse 10/25/2016 Assessment & Plan (09/14/2023 10:09 AM CDT): Not well controlled, smoking about 5-10 cigarettes per day; has some dyspnea; would recommend continued evaluation, check PFTs for possible COPD Assessment & Plan (04/04/2018 12:00 PM PUGGER HELPER): Patient is congratulated on smoking cessation efforts. Assessment & Plan (10/06/2017 4:53 PM CDT): Multiple options discussed with patient choosing Chantix and he is aware of the side effects of medication and will call back if any develop. Pernicious anemia 09/22/2013 Overview (08/11/2016): Pernicious anemia Assessment & Plan (09/14/2023 10:07 AM CDT): Not well controlled, continues to have decreasing hemoglobin and hematocrit; on B12; improvement in MCV Worsening anemia may be secondary to worsening kidney disease; will continue to monitor, check CBC today as patient reports he is having worsening dyspnea Assessment & Plan (07/02/2023 11:12 AM PUGGER HELPER): Increase B12 injections to every 4 weeks. Repeat level before next visit Assessment & Plan (12/21/2021 6:30 AM CDT): Continue B12 supplementation check levels before next visit. Assessment & Plan (04/28/2021 9:55 AM PUGGER HELPER): Continue B12 supplementation check level before next visit. Assessment & Plan (10/24/2020 11:48 AM CDT): Continue supplementation and check level next week and call back for results. Assessment & Plan (10/23/2019 9:43 AM CDT): Continue supplementation check level in 1 year. Assessment & Plan (05/10/2019 10:15 AM PUGGER HELPER): B12 borderline low needs to be more compliant with his administration. Check level again before next visit. Assessment & Plan (10/18/2018 10:50 AM CDT): Continue B12 supplementation and repeat laboratory workup before next visit due to recurrent anemia. Assessment & Plan (04/04/2018 11:57 AM PUGGER HELPER): Continue B12 injections twice monthly and repeat B12 level and CBC before next visit. Assessment & Plan (10/06/2017 4:50 PM CDT): Increase B12 injections to twice monthly and repeat level before next visit. Assessment & Plan (06/01/2017 4:00 PM PUGGER HELPER): B12 injections and check levels before next visit. Gout 09/22/2013 Overview (08/11/2016): GOUT NOS Assessment & Plan (01/20/2025 9:15 PM CDT): Recent flares; maximum dose of allopurinol; patient declines steroids; will start colchicine for due to kidney disease; continue allopurinol 300 mg daily Assessment & Plan (09/14/2023 10:10 AM CDT): Well controlled; no recent flares Continue allopurinol 300 mg daily Assessment & Plan (10/28/2022 5:12 PM CDT): Well controlled on allopurinol. Assessment & Plan (10/24/2020 11:48 AM CDT): Well controlled on allopurinol. Assessment & Plan (10/23/2019 9:43 AM CDT): Continue allopurinol with good success. Assessment & Plan (10/18/2018 10:52 AM CDT): Stable on allopurinol. Assessment & Plan (10/06/2017 4:50 PM CDT): Well controlled on allopurinol. Assessment & Plan (06/01/2017 3:56 PM PUGGER HELPER): Asymptomatic on allopurinol. Colcrys p.r.n. Type 2 diabetes mellitus wit h hyperglycemia, with long-term current use of insulin 09/22/2013 Overview (08/13/2016): DMII WO CMP NT ST UNCNTR Assessment & Plan (01/20/2025 9:16 PM CDT): Blood sugar well controlled, start Jardiance 10 mg daily for renal protection Continue Lantus 50 mg nightly, mounjaro 12.5 mg weekly, Humalog 40-50 units with meals Assessment & Plan (09/03/2024 3:07 PM CDT): Stable, well controlled, A1c near goal; continue to encourage low carbohydrate diet Continue insulin 40-50 units with meals, Lantus 50 units nightly, tirzepatide 7.5 mg weekly Assessment & Plan (06/04/2024 4:38 PM PUGGER HELPER): Stable, well controlled, last A1c at goal; tolerating medications well; can not tolerate Ozempic due to side effects of stomach pain Will transition to mounjaro 2.5 mg daily Continue lispro 40-50 units with meals; Lantus 40-50 units nightly; start mounjaro 2.5 mg daily Assessment & Plan (02/01/2024 5:52 PM CDT): Stable not well controlled, A1c was slightly elevated, has been on multiple rounds of steroids over the lloyd At this time blood sugars running 185 While on steroids, would increase Lantus and lispro Continue Ozempic 1 mg weekly, will continue to increase dose as needed Assessment & Plan (12/13/2023 12:42 PM CDT): Chronic problem, with higher readings lately due to steroid injection. He has been appropriately adjusting his insulin dosing which we reviewed. They downloaded Clarity lucía but were unable to log in, will try to troubleshoot this before next visit so we can download the dexcom report at future visits. Assessment & Plan (09/14/2023 10:07 AM CDT): Stable, well controlled, A1c at goal; patient follows with Endocrinology Continue Humalog with meals; Ozempic 1 mg weekly Assessment & Plan (08/10/2023 2:24 PM CDT): Chronic, stable Continue current regimen with Lantus, Humalog and Ozempic Importance of diet and exercise was discussed. Assessment & Plan (07/02/2023 11:13 AM PUGGER HELPER): Stop metformin for increased creatinine. Continue Ozempic and insulin. Increase efforts at low sugar/carb diet increase exercise and weight loss. Follow-up with his biostatistics director as they direct Assessment & Plan (10/28/2022 5:13 PM CDT): Continue current medication regimen follow up with his biostatistics director as they direct. Assessment & Plan (06/07/2022 5:48 AM PUGGER HELPER): Continue current medication regimen follow up with his biostatistics director as they direct. Assessment & Plan (12/21/2021 6:30 AM CDT): A1c, LDL, and blood pressure currently well controlled on current regimen. Check a yearly diabetic eye exam and blood sugars daily. Monofilament testing is abnormal. Assessment & Plan (04/28/2021 9:55 AM PUGGER HELPER): A1c, LDL, and blood pressure currently well controlled on current regimen. Check a yearly diabetic eye exam and blood sugars daily. Monofilament testing is intact. Assessment & Plan (10/24/2020 11:49 AM CDT): Check A1c next week and call back for results. Continue current medications as managed by his biostatistics director. Assessment & Plan (04/22/2020 5:29 PM PUGGER HELPER): A1c, LDL, and blood pressure currently well controlled on current regimen. Check a yearly diabetic eye exam and blood sugars daily. Monofilament testing is abnormal Assessment & Plan (10/23/2019 9:42 AM CDT): A1c, LDL, and blood pressure currently well controlled on current regimen. Check a yearly diabetic eye exam and blood sugars daily. Monofilament testing is abnormal. Assessment & Plan (05/10/2019 10:15 AM PUGGER HELPER): A1c, LDL, and blood pressure currently well controlled on current regimen. Check a yearly diabetic eye exam and blood sugars daily. Monofilament testing is abnormal. Assessment & Plan (12/12/2018 9:38 AM CDT): Patient has complicated diabetes with peripheral neuropathy and chronic kidney disease. The patient will need to be on a sliding scale perioperatively and have adjustments in his glucose. If the blood sugars are under better control and will reduce the risks of perioperative infection Assessment & Plan (10/18/2018 10:53 AM CDT): A1c, LDL, and blood pressure currently well controlled on current regimen. Check a yearly diabetic eye exam and blood sugars daily. Take a daily aspirin. Monofilament testing is abnormal. Assessment & Plan (04/04/2018 11:58 AM PUGGER HELPER): A1c, LDL, and blood pressure currently well controlled on current regimen. Check a yearly diabetic eye exam and blood sugars daily. Take a daily aspirin. Monofilament testing is abnormal. Assessment & Plan (01/30/2018 4:40 PM CDT): The patient will likely need a sliding scale perioperatively to help address his diabetes. Assessment & Plan (10/06/2017 4:51 PM CDT): A1c below goal. Continue follow-up with his biostatistics director for management of his insulin and other medications. Assessment & Plan (06/01/2017 3:57 PM PUGGER HELPER): A1c close to goal and should follow up his biostatistics director who manages his insulin and other medications. Renal function stable. Avoid NSAIDs. Check blood sugars 3 times daily. CKD stage 4 due to type 2 diabetes mellitus 09/06 Overview (08/12/2016): Chronic kidney disease Assessment & Plan (01/20/2025 9:16 PM CDT): Stable, some improvement; continue with appropriate blood sugar control; start Jardiance 10 mg Assessment & Plan (09/03/2024 3:07 PM CDT): Stable, generally well controlled, EGFR stable, with mild improvement; continue to monitor avoid nephrotoxic medications; continue with appropriate blood sugar control Assessment & Plan (06/04/2024 4:39 PM PUGGER HELPER): Stable, well controlled; EGFR at 29, stable over the past year; will continue to work to ensure appropriate blood sugar control; starting Mounjaro; may benefit from SGLT2 inhibitor Assessment & Plan (02/01/2024 5:52 PM CDT): Not well controlled, advancing; remains below 30 for the past 6 months; would recommend starting SLG 2 inhibitors; patient to follow with mushroom picker for recommendations Assessment & Plan (09/14/2023 10:08 AM CDT): Not well controlled, advancing; follows with Neurology for observation; recent ultrasound demonstrated no significant disease, no stones or hydronephrosis; single simple cyst Continue with appropriate blood pressure and blood sugar control; avoid nephrotoxic medications Assessment & Plan (07/02/2023 11:14 AM PUGGER HELPER): Check bilateral renal ultrasound and call back for results. Nephrology referral. Maintain hydration. Avoid NSAIDs. Maintain optimal blood sugar and blood pressure control Assessment & Plan (01/24/2023 10:33 AM CDT): BUN and creatinine slightly increased likely due to decreased oral intake and dehydration from his recent nausea vomiting. Increase hydration repeat metabolic panel early next week call back for results. Assessment & Plan (06/07/2022 5:48 AM PUGGER HELPER): Renal function stable and should avoid NSAIDs if able. Assessment & Plan (12/21/2021 6:30 AM CDT): Renal function stable and should avoid NSAIDs. Assessment & Plan (04/28/2021 9:56 AM PUGGER HELPER): Renal function stable and should avoid NSAIDs if able. Assessment & Plan (10/24/2020 11:49 AM CDT): Check renal function next week and avoid NSAIDs if able. Assessment & Plan (04/22/2020 5:30 PM PUGGER HELPER): Renal function stable and should avoid NSAIDs. Assessment & Plan (10/23/2019 9:44 AM CDT): Renal function stable and should avoid NSAIDs. Assessment & Plan (05/10/2019 10:16 AM PUGGER HELPER): Renal function stable. Should avoid NSAIDs. Assessment & Plan (10/18/2018 10:53 AM CDT): Renal function stable and should avoid NSAIDs. Assessment & Plan (04/04/2018 11:58 AM PUGGER HELPER): Renal function stable and should avoid NSAIDs. Assessment & Plan (10/06/2017 4:52 PM CDT): Renal function stable. Avoid NSAIDs. Assessment & Plan (06/01/2017 3:57 PM PUGGER HELPER): Avoid NSAIDs and renal function stable. Major depressive disorder 09/22/2013 Overview (08/12/2016): DEPRESSIVE DISORDER NEC Assessment & Plan (06/04/2024 4:39 PM PUGGER HELPER): Stable not well controlled; patient having more outbursts; slightly more tense concerned regarding effects in severity Has stopped sertraline due to lack of response Will start Lexapro 5 mg daily, increase based upon response to therapy Assessment & Plan (09/14/2023 10:09 AM CDT): Stable, well controlled; improved mood Continue citalopram 40 mg daily Assessment & Plan (10/28/2022 5:12 PM CDT): Stable on citalopram. Assessment & Plan (10/24/2020 11:49 AM CDT): Stable on citalopram. Assessment & Plan (04/22/2020 5:30 PM PUGGER HELPER): Stable on citalopram. Assessment & Plan (10/23/2019 9:43 AM CDT): Increase exercise and counseling recommended. Consideration of adding Wellbutrin. Could also change citalopram to SNRI. Assessment & Plan (05/10/2019 10:16 AM PUGGER HELPER): Stable without medication. Assessment & Plan (10/18/2018 10:51 AM CDT): Senior renewal requested and patient will be referred for further evaluation and treatment. Assessment & Plan (10/06/2017 4:52 PM CDT): Well controlled on citalopram. Assessment & Plan (06/01/2017 3:57 PM PUGGER HELPER): Stable on his citalopram. Atrial fibrillation 09/22/2013 Overview (08/13/2016): Atrial fibrillation Assessment & Plan (09/03/2024 3:07 PM CDT): Stable, regular rate and rhythm today; continue Xarelto 20 mg daily diltiazem 180 mg daily Assessment & Plan (06/04/2024 4:40 PM PUGGER HELPER): Stable, well controlled; patient reports no symptoms or palpitations Continue Xarelto 20 mg daily, diltiazem 180 mg daily Assessment & Plan (02/01/2024 5:53 PM CDT): Stable, well controlled; rate controlled Continue Xarelto 20 mg daily, Assessment & Plan (09/14/2023 10:08 AM CDT): Stable, well controlled, regular rate and rhythm today Continue diltiazem 180 mg daily, Xarelto 20 mg daily Assessment & Plan (07/02/2023 11:11 AM PUGGER HELPER): Rate controlled on diltiazem and recommend decrease Xarelto to 15 mg daily for reduced creatinine clearance Assessment & Plan (10/28/2022 4:49 PM CDT): Rate control on diltiazem and continue Xarelto for anticoagulation. Assessment & Plan (06/07/2022 5:49 AM PUGGER HELPER): Rate controlled and will continue Xarelto for anticoagulation. Assessment & Plan (12/21/2021 6:30 AM CDT): Rate controlled will continue Xarelto for anticoagulation. Assessment & Plan (04/28/2021 9:56 AM PUGGER HELPER): Rate controlled and will continue Xarelto for anticoagulation. Assessment & Plan (10/24/2020 11:49 AM CDT): Rate controlled will continue Xarelto for anticoagulation. Assessment & Plan (04/22/2020 5:30 PM PUGGER HELPER): Rate controlled and will continue Xarelto for anticoagulation. Assessment & Plan (10/23/2019 9:44 AM CDT): Rate controlled on diltiazem and will continue Xarelto for anticoagulation. Assessment & Plan (05/10/2019 10:17 AM PUGGER HELPER): Rate controlled on diltiazem. Continue Xarelto for anticoagulation. Follow up with his lumber cutter as they direct. Assessment & Plan (10/18/2018 10:54 AM CDT): Rate controlled on his diltiazem and continue Xarelto for anticoagulation. Assessment & Plan (04/04/2018 11:59 AM PUGGER HELPER): Rate controlled on diltiazem no continue Xarelto through his lumber cutter office. Assessment & Plan (10/06/2017 4:52 PM CDT): Rate controlled on diltiazem and digoxin and Cardiology recommended no anticoagulation. Assessment & Plan (06/01/2017 3:59 PM PUGGER HELPER): Rate controlled on his digoxin and cardiology recommended no anticoagulation. Diastolic heart failure 09/22/2013 Overview (08/14/2016): Diastolic heart failure Assessment & Plan (09/03/2024 3:07 PM CDT): Stable, no peripheral edema; continue to monitor Assessment & Plan (09/14/2023 10:10 AM CDT): Stable, well controlled; possible resolved; most recent echocardiogram demonstrated no diastolic or systolic dysfunction Assessment & Plan (10/23/2019 9:43 AM CDT): Well controlled on diltiazem. Assessment & Plan (05/10/2019 10:16 AM PUGGER HELPER): Stable on diltiazem. Assessment & Plan (10/18/2018 10:53 AM CDT): Compensated on his diltiazem. Assessment & Plan (10/06/2017 4:53 PM CDT): Remains well controlled on his diltiazem. Assessment & Plan (06/01/2017 3:59 PM PUGGER HELPER): Remains compensated on his current medications. Hypertension associated with type 2 diabetes marivel litus 09/22/2013 Overview (01/30/2024): >>OVERVIEW FOR BENIGN HYPERTENSION WRITTEN ON 08/12/2016 5:13 AM BY INTERFACE, PROBLEM LIST CONVERSION BENIGN HYPERTENSION Assessment & Plan (09/03/2024 3:08 PM CDT): Stable, well controlled, blood pressure at goal; no chest pain pressure orthostatics Continue losartan-hydrochlorothiazide 50-12.5 mg daily Assessment & Plan (06/04/2024 4:40 PM PUGGER HELPER): Stable, well controlled, blood pressure at goal; no chest pain or pressure Continue losartan-hydrochlorothiazide 50-12.5 mg daily Assessment & Plan (02/01/2024 5:53 PM CDT): Stable, well controlled, blood pressure at goal No chest pain or pressure Continue to monitor closely Assessment & Plan (01/30/2024 8:06 AM CDT): >>ASSESSMENT AND PLAN FOR BENIGN HYPERTENSION WRITTEN ON 06/01/2017 3:56 PM BY GUNNAR CHESTER MD Well controlled on the current regimen. Avoidance of salt, proper body weight, and routine exercise recommended. Assessment & Plan (01/30/2024 8:06 AM CDT): >>ASSESSMENT AND PLAN FOR BENIGN HYPERTENSION WRITTEN ON 10/06/2017 4:51 PM BY GUNNAR CHESTER MD Well controlled on the current regimen. Avoidance of salt, proper body weight, and routine exercise recommended. Assessment & Plan (01/30/2024 8:06 AM CDT): >>ASSESSMENT AND PLAN FOR BENIGN HYPERTENSION WRITTEN ON 04/04/2018 11:57 AM BY GUNNAR CHESTER MD Well controlled on the current regimen. Avoidance of salt, proper body weight, and routine exercise recommended. Assessment & Plan (01/30/2024 8:06 AM CDT): >>ASSESSMENT AND PLAN FOR BENIGN HYPERTENSION WRITTEN ON 10/18/2018 10:53 AM BY GUNNAR CHESTER MD Well controlled on the current regimen. Avoidance of salt, proper body weight, and routine exercise recommended. Assessment & Plan (01/30/2024 8:06 AM CDT): >>ASSESSMENT AND PLAN FOR BENIGN HYPERTENSION WRITTEN ON 05/10/2019 10:16 AM BY GUNNAR CHESTER MD Well controlled on the current regimen. Avoidance of salt, proper body weight, and routine exercise recommended. Assessment & Plan (01/30/2024 8:06 AM CDT): >>ASSESSMENT AND PLAN FOR BENIGN HYPERTENSION WRITTEN ON 10/23/2019 9:44 AM BY GUNNAR CHESTER MD Well controlled on the current regimen. Avoidance of salt, proper body weight, and routine exercise recommended. Assessment & Plan (01/30/2024 8:06 AM CDT): >>ASSESSMENT AND PLAN FOR BENIGN HYPERTENSION WRITTEN ON 04/22/2020 5:30 PM BY GUNNAR CHESTER MD Well controlled on the current regimen. Avoidance of salt, proper body weight, and routine exercise recommended. Assessment & Plan (01/30/2024 8:06 AM CDT): >>ASSESSMENT AND PLAN FOR BENIGN HYPERTENSION WRITTEN ON 10/24/2020 11:48 AM BY GUNNAR CHESTER MD Well controlled on the current regimen. Avoidance of salt, proper body weight, and routine exercise recommended. Assessment & Plan (01/30/2024 8:06 AM CDT): >>ASSESSMENT AND PLAN FOR BENIGN HYPERTENSION WRITTEN ON 04/28/2021 9:55 AM BY GUNNAR CHESTER MD Well controlled on the current regimen. Avoidance of salt, proper body weight, and routine exercise recommended. Assessment & Plan (01/30/2024 8:06 AM CDT): >>ASSESSMENT AND PLAN FOR BENIGN HYPERTENSION WRITTEN ON 12/21/2021 6:30 AM BY GUNNAR CHESTER MD Well controlled on the current regimen. Avoidance of salt, proper body weight, and routine exercise recommended. Assessment & Plan (01/30/2024 8:06 AM CDT): >>ASSESSMENT AND PLAN FOR BENIGN HYPERTENSION WRITTEN ON 06/07/2022 5:49 AM BY GUNNAR CHSETER MD Stable on his losartan, hydrochlorothiazide, cardia Assessment & Plan (01/30/2024 8:06 AM CDT): >>ASSESSMENT AND PLAN FOR BENIGN HYPERTENSION WRITTEN ON 10/28/2022 5:11 PM BY GUNNAR CHESTER MD Blood pressure well controlled on losartan hydrochlorothiazide diltiazem Assessment & Plan (01/30/2024 8:06 AM CDT): >>ASSESSMENT AND PLAN FOR BENIGN HYPERTENSION WRITTEN ON 01/17/2023 5:56 PM BY GUNNAR CHESTER MD Blood pressure is well controlled on diltiazem losartan hydrochlorothiazide Assessment & Plan (01/30/2024 8:06 AM CDT): >>ASSESSMENT AND PLAN FOR BENIGN HYPERTENSION WRITTEN ON 01/24/2023 10:33 AM BY GUNNAR CHESTER MD Blood pressure well controlled on diltiazem, losartan hydrochlorothiazide Assessment & Plan (01/30/2024 8:06 AM CDT): >>ASSESSMENT AND PLAN FOR BENIGN HYPERTENSION WRITTEN ON 07/02/2023 11:12 AM BY GUNNAR CHESTER MD Blood pressure well controlled on losartan hydrochlorothiazide, diltiazem Assessment & Plan (01/30/2024 8:06 AM CDT): >>ASSESSMENT AND PLAN FOR BENIGN HYPERTENSION WRITTEN ON 09/14/2023 10:09 AM BY JERSON ARANA MD Stable, well controlled, blood pressure at goal Continue losartan-hydrochlorothiazide 50-12.5 mg daily, diltiazem 180 mg daily Assessment & Plan (12/13/2023 11:25 AM CDT): Chronic problem, Controlled on diltiazem, losartan, HCTZ.. No changes. Hyperlipidemia associated with type 2 diabetes sadaf tay 09/22/2013 Overview (01/30/2024): >>OVERVIEW FOR HYPERLIPIDEMIA WRITTEN ON 08/12/2016 5:13 AM BY INTERFACE, PROBLEM LIST CONVERSION HYPERLIPIDEMIA NEC/NOS Assessment & Plan (09/03/2024 3:09 PM CDT): Stable; well controlled, last lipid panel at goal; encourage updated lipid panel Continue simvastatin 10 mg nightly Assessment & Plan (06/04/2024 4:41 PM PUGGER HELPER): Stable, well controlled, lipids at goal Continue Vascepa 2 g b.i.d., simvastatin 10 mg nightly Assessment & Plan (02/01/2024 5:54 PM CDT): Stable, well controlled, lipids at goal Tolerating medications well Continue simvastatin 10 mg daily, Vascepa 2 g b.i.d. Assessment & Plan (01/30/2024 8:07 AM CDT): >>ASSESSMENT AND PLAN FOR HYPERLIPIDEMIA WRITTEN ON 06/01/2017 3:57 PM BY GUNNAR CHESTER MD Well controlled on current therapy and will check a lipid panel and LFTs in 6 months. Assessment & Plan (01/30/2024 8:07 AM CDT): >>ASSESSMENT AND PLAN FOR HYPERLIPIDEMIA WRITTEN ON 10/06/2017 4:51 PM BY GUNNAR CHESTER MD Well controlled on current therapy and will check a lipid panel and LFTs in 6 months. Assessment & Plan (01/30/2024 8:07 AM CDT): >>ASSESSMENT AND PLAN FOR HYPERLIPIDEMIA WRITTEN ON 04/04/2018 11:58 AM BY GUNNAR CHESTER MD Well controlled on current therapy and will check a lipid panel and LFTs in 6 months. Assessment & Plan (01/30/2024 8:07 AM CDT): >>ASSESSMENT AND PLAN FOR HYPERLIPIDEMIA WRITTEN ON 10/18/2018 10:52 AM BY GUNNAR CHESTER MD Well controlled on current therapy and will check a lipid panel and LFTs in 6 months. Assessment & Plan (01/30/2024 8:07 AM CDT): >>ASSESSMENT AND PLAN FOR HYPERLIPIDEMIA WRITTEN ON 05/10/2019 10:16 AM BY GUNNAR CHESTER MD Well controlled on current therapy and will check a lipid panel and LFTs in 6 months. Assessment & Plan (01/30/2024 8:07 AM CDT): >>ASSESSMENT AND PLAN FOR HYPERLIPIDEMIA WRITTEN ON 10/23/2019 9:43 AM BY GUNNAR CHESTER MD Well controlled on current therapy and will check a lipid panel and LFTs in 6 months. Assessment & Plan (01/30/2024 8:07 AM CDT): >>ASSESSMENT AND PLAN FOR HYPERLIPIDEMIA WRITTEN ON 04/22/2020 5:30 PM BY GUNNAR CHESTER MD Well controlled on current therapy and will check a lipid panel and LFTs in 6 months. Assessment & Plan (01/30/2024 8:07 AM CDT): >>ASSESSMENT AND PLAN FOR HYPERLIPIDEMIA WRITTEN ON 10/24/2020 11:48 AM BY GUNNAR CHESTER MD Well controlled on current therapy and will check a lipid panel and LFTs in 6 months. Assessment & Plan (01/30/2024 8:07 AM CDT): >>ASSESSMENT AND PLAN FOR HYPERLIPIDEMIA WRITTEN ON 04/28/2021 9:55 AM BY GUNNAR CHESTER MD Well controlled on current therapy and will check a lipid panel and LFTs in 6 months. Assessment & Plan (01/30/2024 8:07 AM CDT): >>ASSESSMENT AND PLAN FOR HYPERLIPIDEMIA WRITTEN ON 12/21/2021 6:30 AM BY GUNANR CHESTER MD Well controlled on current therapy and will check a lipid panel and LFTs in 6 months. Assessment & Plan (01/30/2024 8:07 AM CDT): >>ASSESSMENT AND PLAN FOR HYPERLIPIDEMIA WRITTEN ON 06/07/2022 5:48 AM BY GUNNAR CHESTER MD Well controlled on current therapy and will check a lipid panel and LFTs in 6 months. Assessment & Plan (01/30/2024 8:07 AM CDT): >>ASSESSMENT AND PLAN FOR HYPERLIPIDEMIA WRITTEN ON 10/28/2022 5:12 PM BY GUNNAR CHESTER MD Well controlled on current therapy and will check a lipid panel and LFTs in 6 months. Assessment & Plan (01/30/2024 8:07 AM CDT): >>ASSESSMENT AND PLAN FOR HYPERLIPIDEMIA WRITTEN ON 07/02/2023 11:12 AM BY GUNNAR CHESTER MD Well controlled on current therapy and will check a lipid panel and LFTs in 6 months. Assessment & Plan (01/30/2024 8:07 AM CDT): >>ASSESSMENT AND PLAN FOR HYPERLIPIDEMIA WRITTEN ON 09/14/2023 10:07 AM BY JERSON ARANA MD Stable, well controlled, lipids at goal Encourage low-fat high-fiber diet Continue simvastatin 10 mg daily Assessment & Plan (12/13/2023 11:25 AM CDT): Chronic problem. On statin therapy, no changes. Obstructive sleep apnea syndrome 06/22/2012 Overview (08/12/2016): MELODY on CPAP Assessment & Plan (02/01/2024 5:51 PM CDT): Stable, well controlled; uses CPAP nightly; follows with pulmonology Assessment & Plan (09/14/2023 10:08 AM CDT): Stable, well controlled; uses CPAP every night; target approximately 7-9 hours of sleep in a 24 hour. Assessment & Plan (10/28/2022 5:12 PM CDT): Patient is compliant with the CPAP machine and gets symptomatic relief. Assessment & Plan (10/24/2020 11:48 AM CDT): Patient is compliant with the CPAP machine and gets symptomatic relief. Assessment & Plan (04/22/2020 5:29 PM PUGGER HELPER): Patient is compliant with the CPAP machine and gets symptomatic relief. Assessment & Plan (10/23/2019 9:43 AM CDT): Patient is compliant with the CPAP machine and gets symptomatic relief. Assessment & Plan (10/18/2018 10:50 AM CDT): Patient is compliant with the CPAP machine and gets symptomatic relief. Assessment & Plan (10/06/2017 4:50 PM CDT): Patient is compliant with the CPAP machine and gets symptomatic relief. Resolved Problems Problem Noted Date Diagnosed Date Resolved Date Trochanteric bursitis of right hip 11/24/2023 02/21/2024 Assessment & Plan (11/24/2023 10:23 AM CDT): The patient has trochanteric bursitis of the right side is much more symptomatic. After reviewing the treatment options he elected undergo a cortisone injection due the severity of his symptoms. He tolerated the procedure well. Trochanteric bursitis of left hip 11/24/2023 02/21/2024 Assessment & Plan (11/24/2023 10:23 AM CDT): Trochanteric bursitis in the left side is milder. He may find topical rubs helpful. He was offered a cortisone injection but he declined as he did not feel with sufficient to warrant an injection at this time. Long-term weight loss in low- impact exercising would be advisable with stretching Primary osteoarthritis of fi rst carpometacarpal joint of left hand 08/25/202302/20 Assessment & Plan (08/30/2023 11:49 AM CDT): Patient has arthritis of the 1st CMC joint of the left hand. A thumb splint was issued for better support. He may find topical rubs helpful in alleviating the localized pain. If he develops progressive issues with his underlying arthritis he may need a hand specialist Sacroiliitis, not elsewhere classified 08/25/2023 02/21/2024 Assessment & Plan (08/30/2023 11:48 AM CDT): The patient has sacroiliitis and may find pain management helpful. He has [id number] arthritic changes of the hip joints in his not require hip replacement. Long-term weight loss would likely be helpful. Strain of extensor digitorum tendon of finger 02/09/2002/21/2024 Assessment & Plan (02/08/2022 1:27 PM CDT): Patient has a strain of the PIP joint capsule and extensor tendon. Patient was encouraged to work on stretching exercises to prevent a contracture. If he is not regaining motion on his own would have him call would be happy to arrange for formal occupational therapy Traumatic incomplete tear of right rotator cuff 05/29/2020 02/21/2024 Assessment & Plan (05/29/2020 3:42 PM PUGGER HELPER): Patient has a partial-thickness tear of his right rotator cuff and biceps tendon with impingement. After reviewing the treatment options elected undergo a cortisone injection today and physical therapy was prescribed. Would like to reassess after he has had 4-6 weeks of therapy as a majority these can be treated with conservative treatment Right rotator cuff tendinitis 03/17/2020 02/21/2024 Assessment & Plan (10/20/2020 11:01 AM CDT): After review the patient did want to proceed with a follow-up injection hoping to get better relief. He tolerated the procedure well. Assessment & Plan (03/17/2020 11:00 AM PUGGER HELPER): Patient's history and exam is consistent with rotator cuff tendinitis. He does have a moderate amount of arthritis of the glenohumeral joint but this stage treating the cuff tendinitis and secondary impingement would likely be helpful. After reviewing the treatment options patient elected undergo a cortisone injection today. He tolerated the procedure well. Would encourage her work on stretching exercises to prevent a frozen shoulder. Pain of right upper arm 02/29/202002/07 Assessment & Plan (02/29/2020 2:28 PM CDT): Clinical exam essentially benign but given chronicity of his pain and lack of trauma x-ray would not serve much for purpose for evaluation. Recommending CT scan of right upper extremity, humerus looking into soft tissues to rule out any concerns of lesions, masses with further workup with ultrasonography or MRI pending results of CT scan. Voltaren gel refilled recommended Cnt. With heat. Red flags reviewed indicating need to present in to clinic prior to next OV. Strain of right patellar tendon 05/01/2019 02/21/2024 Assessment & Plan (05/01/2019 12:15 PM PUGGER HELPER): Patient acutely as a strain of the right patella tendon. There's no palpable defects and he is walking reasonably well. Physical therapy would likely be beneficial as he is having difficulties with stairs Acute meniscal tear of right knee 03/16/2018 07/24/2018 Assessment & Plan (03/16/2018 2:26 PM PUGGER HELPER): Patient has exam that would be consistent with a meniscal tear is not responding to the treatment of his arthritis alone. I would recommend an MRI to in the event that he has developed a degenerative meniscal tear as a lesser procedure for knee replacement may be helpful for him. Once the MRIs obtained will initiate appropriate treatment Primary osteoarthritis of right knee 01/30/2018 07/24/2018 Assessment & Plan (01/30/2018 4:39 PM CDT): Patient has complete joint space obliteration of the right knee with failure to respond to conservative measures. As such she wants proceed with right total knee replacement. Underwent successful left total knee replacement and wants to have the right one done. Patient was enrolled in a total knee protocol. He was advised be taking iron two weeks in advance of surgery in preparation for perioperative blood loss. Patient was seen and cleared by his lumber cutter recently and advised to discontinue his Xarelto three days before surgery and stop taking his aspirin as well. Pes anserinus bursitis of right knee 12/01/2017 02/21/2024 Assessment & Plan (12/01/2017 4:45 PM CDT): Patient should be applying the Voltaren gel upwards of 4 times a day to get relief on days where it is more significant. A knee sleeve may be helpful is a counter measure for swelling and/or support hose. At this point there is no evidence of a deep vein thrombosis Arthritis of right knee 10/27/201712/2017 Assessment & Plan (12/01/2017 4:45 PM CDT): For the time being the patient has arthritis appears to have responded to the gel one. The residual pain he is having is in the region of the pes anserinus bursitis portion of his knee Assessment & Plan (10/27/2017 9:28 AM CDT): The patient was given an injection of Gel one through a sterile field. He tolerated the procedure well. Took six weeks to get the final approval for from his insurance company At low risk for fall 10/06/2017 022 Assessment & Plan (10/24/2020 11:51 AM CDT): Timed get up and go test normal. Assessment & Plan (10/23/2019 9:44 AM CDT): Timed get up and go test normal. Assessment & Plan (10/18/2018 10:54 AM CDT): Timed get up and go test normal. Assessment & Plan (10/06/2017 4:54 PM CDT): Timed get up and go test normal. Primary osteoarthritis of both knees 09/27/2017 02/21/2024 Assessment & Plan (02/10/2023 1:12 PM CDT): Patient does have some weakness in the VMO muscle has atrophied on the left side. He is not myelopathic. I would recommend physical therapy working on a quad rehab program which may help him with his stair climbing. His implants otherwise reveal no evidence of fracture wear, loosening or dislocation Assessment & Plan (02/08/2022 10:58 AM CDT): Patient is doing well status post bilateral total knee replacement. He is impaired by chronic low back issues where he is had prior decompressive surgery and handicap parking was renewed. Long-term weight loss would likely be helpful. Would recommend a follow-up x-ray and annual exam of his knees. Assessment & Plan (07/24/2018 5:30 PM CDT): Patient notes more residual tightness in his right knee compared to his left after having his therapy interrupted by back surgery. At this point the patient's resuming physical therapy for his back and have ordered additional therapy for his knee. He should continue to use ice compresses intermittently and topical rubs as needed Assessment & Plan (03/16/2018 2:25 PM PUGGER HELPER): Patient has moderate arthritis of the right knee but is not respond to the treatment of the arthritis with cortisone another injectables. With the recommend obtaining an MRI to evaluate the possibility of developing a degenerative meniscal tear to account for his ongoing pain and swelling despite the cortisone treatment. His left knee is doing quite well following total knee replacement Assessment & Plan (10/06/2017 4:55 PM CDT): Trial of Voltaren gel, follow-up with his orthopedist for injection therapy as they direct. Assessment & Plan (09/27/2017 10:46 AM CDT): Patient has moderate arthritic changes of his knee on the right side. He is doing well with his left knee following total knee replacement. He may find cortisone be very effective in reducing his symptoms which have been present for four weeks however he has had hypoglycemic episodes following previous injections. Zilretta may be a good option for this individual as the absorption is slow in does not typically cause a significant spike and sugar control. If approved would be happy to provide the patient with an injection Pes anserinus tendinitis or bursitis 09/04/2012 02/21/2024 Encounters Date Type Department Care Team Description 01/29/2025 Telephone [facility] [address] [phone] Jerson Arana MD 01/24/2025 Telephone [facility] [address] [phone] Jerson Arana MD Medical Question/Miscellaneou s; Call Back 01/21/2025 Telephone [facility] [address] [phone] Jerson Arana MD 01/04/2025 10:15 AM CDT Office Visit [facility] Primary Care at [address] [place], [place] [phone] Jerson Arana MD Chronic gout without tophus, unspecified cause, unspecified site (Primary Dx); Former smoker; Type 2 diabetes mellitus with hyperglycemia, with long-term current use of insulin (HCC); 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); Anemia due to stage 4 chronic kidney disease (HCC) 01/04/2025 Telephone [facility] [address] [facility] [address] [place] [address] Ramonita Rodriguez 01/03/2025 1:25 PM CDT Lab [address] [phone] 01/03/2025 11:20 AM CDT Lab [address] [phone] 01/03/2025 11:17 AM CDT - 01/03/2025 11:59 PM CDT Hospital Encounter [facility] [address] [place] [id number] Encounter for other preprocedural examination Discharge Disposition: Discharge to home or self care 12/25/2024 Telephone [facility] [phone] [place] [address] [place] [phone] Fred Ortega 12/07/2024 10:55 AM CDT Lab [address] [phone] Screening PSA (prostate specific antigen) 12/07/2024 10:50 AM CDT Lab [address] [phone] Chronic kidney disease, unspecified CKD stage; Hypertension, unspecified type; Diabetes mellitus without complication (HCC) 12/07/2024 Results Follow-Up [facility] Primary Care at [address] [phone] Jerson Arana MD PSA screen 12/06/2024 Orders Only Nephrology Tony Harris MD Chronic kidney disease, unspecified CKD stage (Primary Dx); Hypertension, unspecified type; Diabetes mellitus without complication (HCC) 11/21/2024 6:30 PM CDT Office Visit [facility] Convenient Care at [address] [place] [phone] Paulette Quiroga, JAKE Constipation, unspecified constipation type (Primary Dx); Nausea; Upset stomach from Last 3 Months Immunizations Immunization Administration Dates Next Due Influenza, Quadrivalent, Hig h Dose, Preservative Free, Intrr 01/24/2023,01/17/2023(Deferred: Patient Refused),12/07/2022(Deferred: Patient Refused),02/16/2022,04/28/2021, 020 Influenza, Quadrivalent, Spl it, Preservative Free, Intramuscular 03/28/2013 Influenza, Split 01/20/2010,05/09/2009 Influenza, Trivalent, High D ose, Split, Preservative Free, Intramuscular 01/13/2024,02/15/2018,03/03/2017,05/14,03/11/2015,02/06/2014,03/28/2013 Influenza, Trivalent, IM (MDV) 2,02/08/2011,02/05/2009,01/22,02/13/2007 Influenza, Unspecified 05/04/2023(Deferr ed: Patient Refused),04/10/2021(Deferred: Patient ill today),03/17/2020,02/29/2020(Deferred: Patient Refused),03/29/2019 Pneumococcal Conjugate PCV 13 03/11/2015, 014 Pneumococcal Polysaccharide PPV23 07/19/2014,,05/09/2007 RSV Vaccine, Pref, Recombina nt, Subunit, Adjuvanted, PF, IM (Arexvy) 05/19/2023 TD Preservative Free 05/09/2007 Td, adsorbed 10/10/2018 Tdap 01/23/2008 ZOSTER LIVE 03/04/2015 ZOSTER Recombinant 05/30/2020,02/14/2020 Surgical History Surgery Date Site/Laterality Comments OTHER SURGICAL HISTORY Difficult Intubation: Requires Fiberoptic Intubation TONSILLECTOMY 05/09/1949 - 05/08/1950 tonsillectomy OTHER SURGICAL HISTORY Abnormal pulse R LE: ANNIE's normal, no claudication EYE SURGERY Bilateral cataracts ORAL SURGERY wisdom teeth LAMINECTOMY 07/03/2018 JOINT REPLACEMENT 2019 Bilateral R knee 05/2018, L knee 2010 KNEE SURGERY 12/20/2018 Right TKA Revision COLONOSCOPY 10/2017, change in bowel habits. COLONOSCOPY 05/09/2018 - 05/08/2019 last screening , inadequate prep SPINE SURGERY 2019 CATARACT EXTRACTION Medical History Medical History Date Comments Hx Other Medical B12 Deficiency Anemia Atopic rhinitis Allergic Rhiniti s Atrial fibrillation (HCC) 1981 Atrial fibrillation Sleep apnea 1994 Sleep apnea Gout 2008 Gout Depression Depression Hypertension Hypertension Hyperlipidemia Hyperlipidemia Hx Other Medical torn meniscus Hx Other Medical Abnormal pulse R LE Hx Other Medical Gynecomastia Diabetic eye exam (HCC) 10/05/2016 SOB (shortness of breath) Type 2 diabetes mellitus Neuropathy Anemia 2010 Arthritis 10 yrs Hard to intubate 2009 per letter from [place] the patient requires fiber optic intubation. Cataract Loss of bladder control Bowel incontinence Constipation Erectile dysfunction Back pain Anxiety Years GERD (gastroesophageal reflu x disease) COPD (chronic obstructive pu lmonary disease) Chronic kidney disease 2022 Benign prostatic hyperplasia 20 yrs Family History Medical History Relation Name Comments Other Brother 2 parkinsons; Coronary artery disease Brother 3 CABG ; Coronary artery disease Brother 4 Jacquelyn nary artery disease; Hypertension Brother 5 Hypertension; Parkinsonism Brother 6 Parkinson's dis ease; Stroke Brother 7 Stroke; Heart disease Father Heart disease; Hypertension Mother Mariia Hypertension; Lupus Mother Mariia Systemic lupus erythematosus; Relation Name Status Comments Brother 1 Alive Brother 2 Brother 3 Brother 4 Brother 5 Brother 6 Brother 7 Father Mother Mariia Social History Tobacco Use Types Packs/Day Years Used Date Smoking Tobacco: Former Cigarettes 0.5 11 Smokeless Tobacco: Former Quit: 10/24/2016 Tobacco Cessation:Counseling Given: Not Answered Comments:Smoking History Packs/day: 1 Packs Alcohol Use Standard Drinks/Week Comments Yes 0 (1 standard drink = 0.6 oz pur e alcohol) occasionally Social Connection and Isolation Panel Answer Date Recorded Frequency of Communication w ith Friends and Family More than three times a week 12/21/2018 Frequency of Social Gatherin gs with Friends and Family More than three times a week 12/21/2018 Attends Yarsanism Services More than 4 times per year [...] on file Legal Sex Male 3:59 PM PUGGER HELPER Gender Identity Not on file Sexual Orientation Not on file Obstetrics History Last Filed Vital Signs Vital Sign Reading Time Taken Comments Blood Pressure 118/68 01/04/2025 10:14 AM CDT Pulse 71 01/04/2025 10:14 AM CDT Temperature 36.3 C (97.3 F) 01/04/2025 10:14 AM CDT Respiratory Rate 16 11/21/2024 6:24 PM CDT Oxygen Saturation 95% 01/04/2025 10:14 AM CDT Inhaled Oxygen Concentration - - Weight 123.8 kg (273 lb) 01/04/2025 10:14 AM CDT Height 180.3 cm (5' 11) 01/04/2025 10:14 AM CDT Body Mass Index 38.08 01/04/2025 10:14 AM CDT Plan of Treatment Health Maintenance Due Date Last Done Comments Lung Cancer Screening 08/12/2017 08/12/2016, 017 Foot Exam 12/12/2024 12/13/2023, 10/08, 10/27/2021, Additional history exists Covid-19 Vaccine (2023- 5 season) 2025 01/04/2024, 05/19/2023, 02/16/2022, Additional history exists Influenza Vaccine (#1) 2025 , 01/24/2023, 02/16/2022, Additional history exists Dilated Eye Exam 03/11/2025 03/11/2023, 03/2022, 01/06/2021, Additional history exists Hemoglobin A1C 06/09/2025 12/07/2024, 2 07/2024, 04/10/2024, Additional history exists Fall Risk Assessment 09/03/2025 09/03/2024, 09/14/2023, 05/04/2023, Additional history exists Well Visit 65+ 09/03/2025 09/03/2024, 10/08, 10/27/2021, Additional history exists Lipid Panel 10/19/2025 10/19/2024, 050 12/2023, 04/27/2023, Additional history exists Albumin Creatinine Ratio, Urine 12/07/2025 12/07/2024, 08/29/2024, 04/27/2023, Additional history exists Prostate Cancer Screening-PSA 12/07/2025, 10/26/2022, 10/20/2021, Additional history exists eGFR 01/03/2026 01/03/2025, 080 05/2024, 08/29/2024, Additional history exists Depression Screening 01/04/2026 01/04/2025, 09/03/2024, 01/30/2024, Additional history exists DTaP/Tdap/Td Vaccine (3 - Td or Tdap) 10/10/2028 10/10/2018, 01/23/2008, 05/09/2007 Pneumococcal vaccine 65+ Completed 015, 07/19/2014, 06/28/2013, Additional history exists Zoster Vaccine Completed 05/30/2020, 100 12/2019, 03/04/2015 Colon Cancer Screening-CT Colonography Discontinued 09/09/2021, 08/14/2018, 12/06/2017, Additional history exists Colon Cancer Screening-Colonoscopy Discontinued 09/09/2021, 08/14/2018, 12/06/2017, Additional history exists Colon Cancer Screening-DNA Stool Discontinued 09/09/2021, 08/14/2018, 12/06/2017, Additional history exists Colon Cancer Screening-FIT Discontinued 09/09, 08/14/2018, 12/06/2017, Additional history exists Colon Cancer Screening-FOBT Discontinued 08/2021, 08/14/2018, 12/06/2017, Additional history exists Colon Cancer Screening-Sigmoidoscopy Discontinued 09/09/2021, 08/14/2018, 12/06/2017, Additional history exists Colorectal Cancer Screening Discontinued Hepatitis B Screening Completed 09/14/2023 Abdominal Aortic Aneurysm (A AA) Screen Completed 02/10/2024, 06/23/2012 Medical Devices Implanted Type Area Abstract Manager Device Identifier Shelf Expiration Date Model / Serial / Lot Cement Bone Palacos R+G Gentamicin High Viscosity - [id number] Implanted:Qty: 2 on 05/17/2018 by Reza Gonzalez MD at [facility] Right: Knee [employer] 12/06/2020 [id number] / / [id number] [employer] [id number] Vanguard 72.5mm Cemented Posterior Stabilize Open Box Knee Right - [id number] Implanted:Qty: 1 on 05/17/2018 by Reza Gonzalez MD at [facility] Right: Knee [employer] 03/16/2027 [id number] / / [id number] [employer] [id number] 79mm I Beam Knee Tray Tibial Cocr - [id number] Implanted:Qty: 1 on 05/17/2018 by Reza Gonzalez MD at [facility] Right: Knee [employer] 02/23/2028 [id number] / / [id number] [employer] [id number] Ascent 37mm 1 Peg Wire Knee Anterior Posterior Component Patellar - [id number] Implanted:Qty: 1 on 05/17/2018 by Reza Gonzalez MD at [facility] Right: Knee [employer] 03/08/2023 [id number] / / [id number] 79/13sls74wa Vanguard E1 Knee Post Stab Tibial - [id number] Implanted:Qty: 1 on 05/17/2018 by Reza Gonzalez MD at [facility] Right: Knee [employer] 06/22/2022 [id number] / / [id number] [employer] [id number] Biomet Ascent Maxim Primary Lock Bar Knee Component Tibial Tray - [id number] Implanted:Qty: 1 on 12/20/2018 by Reza Gonzalez MD at [facility] Right: Knee [employer] [id number] 09/19/2028 [id number] / / [id number] [employer] [id number] Vanguard 79/33vue13ge Posterior Stabilize Knee Bearing Tibial E1 - [id number] Implanted:Qty: 1 on 12/20/2018 by Reza Gonzalez MD at [facility] Right: Knee [employer] [id number] 03/07/2023 [id number] / / [id number] [employer] [id number] 37mm 3 Peg Knee Standard Component Patellar Series A - [id number] Implanted:Qty: 1 on 12/20/2018 by Reza Gonzalez MD at [facility] Right: Knee [employer] [id number] 11/09/2023 [id number] / / [id number] [employer] [id number] Palacos R+G High Viscosity Cement Bone Gentamicin Arthroplasty - [id number] Implanted:Qty: 1 on 12/20/2018 by Reza Gonzalez MD at [facility] Right: Knee [employer] [id number] 12/06/2020 [id number] / / [id number] Procedures Procedure Name Priority Date/Time Associated Diagnosis Comments EGFR Routine 01/03/2025 1:32 PM CDT CRP (ACUTE PHASE) Routine 01/03/2025 1:3 2 PM CDT COMPREHENSIVE METABOLIC PANEL Routine 01/03/2025 1:32 PM CDT ECG 12-LEAD Routine 01/03/2025 11:48 AM CDT Encounter for other preprocedural examination DIFFERENTIAL AUTO Routine 01/03/2025 11:24 AM CDT ERYTHROCYTE SEDIMENTATION RATE Routine 01/03/2025 11:24 AM CDT CBC WITH AUTO DIFFERENTIAL Routine 01/03/2025 11:24 AM CDT URINALYSIS AND REFLEX TO MICROSCOPIC AND CULTURE Routine 01/03/2025 11:24 AM CDT EGFR Routine 12/07/2024 11:07 AM CDT Chronic kidney disease, unspecified CKD stage Hypertension, unspecified type DIFFERENTIAL AUTO Routine 12/07/2024 11:07 AM CDT Chronic kidney disease, unspecified CKD stage Hypertension, unspecified type PSA SCREEN Routine 12/07/2024 11:07 AM CDT Screening PSA (prostate specific antigen) COMPREHENSIVE METABOLIC PANEL Routine 12/07/2024 11:07 AM CDT Chronic kidney disease, unspecified CKD stage Hypertension, unspecified type CBC WITH AUTO DIFFERENTIAL Routine 12/07/2024 11:07 AM CDT Chronic kidney disease, unspecified CKD stage Hypertension, unspecified type HEMOGLOBIN A1C Routine 12/07/2024 11:07 AM CDT Chronic kidney disease, unspecified CKD stage Hypertension, unspecified type Diabetes mellitus without complication (HCC) ALBUMIN CREATININE RATIO, URINE Routine 12/07/2024 10:52 AM CDT Chronic kidney disease, unspecified CKD stage Hypertension, unspecified type LIPID PANEL Routine 10/19/2024 9:[address] ABDOMEN PELVIS WO CONTRAST ED 02/10/2024 2:04 PM CDT DIABETIC EYE EXAM Routine 03/11/2023 COLONOSCOPY 09/09/2021 9:[address] LUNG CANCER SCREENING Schedule Routine, Read Routine (OP Routine) 08/12/2016 DIABETES FOOT EXAM Routine 08/02/2016 from Last 3 Months or Most Recently Relevant to Health Maintenance Results * (ABNORMAL) eGFR (01/03/2025 1:32 PM CDT) eGFR 34(L) >=60 mL/min/1. 73 m2 Comment: Interpretive Data Reference Interval Normal >/= 90 mL/min/1.73m2 Mildly decreased* 60 - 89 mL/min/1.73m2 Mildly to moderately decreased 45 - 59 mL/min/1.73m2 Moderately to severely decreased 30 - 44 mL/min/1.73m2 Severely decreased 15 - 29 mL/min/1.73m2 Kidney Failure < 15 mL/min/1.73m2 *Relative to young adult level Estimated glomerular filtration rate is determined by the 2020 CKD-EPI equation recommended by the National Kid[employer] Foundation (A Unifying Approach to GFR Estimation: Recommendations of the NKF-ASK Task Force on Reassessing the Inclusion of Race in Diagnosing Kidney Disease, JASN 2020). The CKD-EPI equation should not be used for patients with unstable renal function and has not been validated in children and those over 70. Current interpretive data was last reviewed 2021. Blood 01/03/2025 1:32 PM CDT 01/03/2025 2:20 PM CDT us Sunni Telles NP LAB BLOOD ORDERABLES Final Result Performing Organization Address City/State/[facility] Co de Phone Number TASH GRAF ([place]) [address] [facility] [place] [address] * CRP (acute phase) (01/03/2025 1:32 PM CDT) CRP 4.5 <=10.0 mg/L TASH REYNOLDS ([place]) Blood 01/03/2025 1:32 PM CDT 01/03/2025 2:20 PM CDT Sunni Telles NP LAB BLOOD ORDERABLES Final Result [facility] ([place]) [address] [facility] [place] [address] * (ABNORMAL) Comprehensive metabolic panel (01/03/2025 1:32 PM CDT) Sodium 139 135 - 145 mmol/L [facility] ([place]) Potassium, pl 4.5 3.3 - 4.9 mmol/L [facility] ([place]) Chloride 105 97 - 110 mmol/L [facility] ([place]) CO2 24 22 - 32 mmol/L [facility] ([place]) Anion gap 10 2 - 15 mmol/L [facility] ([place]) BUN 35(H) 6 - 25 mg/dL [facility] ([place]) Creatinine 1.97(H) 0.80 - 1.30 mg/dL [facility] ([place]) Glucose 186 70 - 199 mg/dL [facility] ([place]) Comment: Interpretive Data Fasting glucose >/= 126 mg/dl is diagnostic for diabetes. Fasting is defined as no caloric intake for at least 8 hours. Fasting glucose between 100 mg/dl to 125 mg/dl is diagnostic of prediabetes. In a patient with classic symptoms of hyperglycemia or hyperglycemic crisis, a random glucose >/= 200 mg/dl is diagnostic for diabetes. In the absence of unequivocal hyperglycemia, results should be confirmed by repeat testing. The classification and Diagnosis of Diabetes Diabetes Care 2021; 46: S19-S40. Current interpretive data was last revised 2022. Calcium 9.6 8.5 - 10.3 mg/dL [facility] ([place]) Bilirubin, total 0.4 0.1 - 1.2 mg/dL [facility] ([place]) Protein, pl 6.9 6.5 - 8.5 g/dL [facility] ([place]) Albumin 4.1 3.5 - 5.0 g/dL [facility] ([facility]) Alk phos 78 40 - 130 Units/L [facility] ([facility]) ALT 22 7 - 55 Units/L [facility] ([facility]) AST 26 10 - 50 Units/L [facility] ([facility]) Blood 01/03/2025 1:32 PM CDT 01/03/2025 2:20 PM CDT us Sunni Telles DIAL REFINISHER LAB BLOOD ORDERABLES Final Result Performing Organization Address City/[facility] Co de Phone Number TASH GRAF ([place]) 1 [facility] [place] [address] * ECG 12 lead (01/03/2025 11:48 AM CDT) 01/03/2025 11:4 4 AM CDT Narrative [facility] - 01/03/2025 2:51 PM CDT Vent Rate: 87 bpm RR Interval: 684 msec [place] Interval: 244 msec QRS Duration: 81 msec QT Interval: 355 msec QTC Interval: 400 msec P-R-T [place]: 96 - -1 - 75 degrees IMPRESSION: SINUS RHYTHM WITH FIRST DEGREE AV BLOCK LOW QRS VOLTAGE IN PRECORDIAL LEADS [QRS DEFLECTION < 1.0 mV IN CHEST LEADS] ABNORMAL ECG no ch Electronically Signed By: Elgin Huynh MD Sid Vela MD ECG ORDERABLES Final Resu lt Performing Organization Address [facility] Co de Phone Number [facility] [employer] [facility] * Differential, auto (01/03/2025 11:24 AM CDT) Neutrophil abs 3.47 1.50 - 6.50 K/cumm Imm gran abs 0.01 0.00 - 0.10 K/cumm [facility] ([facility]) Lymphocyte abs 1.12 0.80 - 3.30 K/cumm [facility] ([place]) Monocyte abs 0.46 0.20 - 0.80 K/cumm [facility] ([place]) Eosinophil abs 0.29 0.00 - 0.50 K/cumm [facility] ([place]) Basophil abs 0.03 0.00 - 0.10 K/cumm [facility] ([place]) Neutrophil pct 64.4 % [facility] ([facility]) Comment: Interpretive Data Percent cell count reference ranges are not reported, since discordance with absolute values may lead to misinterpretation of CBC data. Current Interpretive Data was last revised on 2017. Imm gran pct 0.2 % [facility] ([facility]) Comment: Interpretive Data Percent cell count reference ranges are not reported, since discordance with absolute values may lead to misinterpretation of CBC data. Current Interpretive Data was last revised on 2017. Lymphocyte pct 20.8 % [facility] ([facility]) Comment: Interpretive Data Percent cell count reference ranges are not reported, since discordance with absolute values may lead to misinterpretation of CBC data. Current Interpretive Data was last revised on 2017. Monocyte pct 8.6 % TASH G[facility] ([place]) Comment: Interpretive Data Percent cell count reference ranges are not reported, since discordance with absolute values may lead to misinterpretation of CBC data. Current Interpretive Data was last revised on 2017. Eosinophil pct 5.4 % [facility] ([facility]) Comment: Interpretive Data Percent cell count reference ranges are not reported, since discordance with absolute values may lead to misinterpretation of CBC data. Current Interpretive Data was last revised on 2017. Basophil pct 0.6 % TASH [facility] ([place]) Comment: Interpretive Data Percent cell count reference ranges are not reported, since discordance with absolute values may lead to misinterpretation of CBC data. Current Interpretive Data was last revised on 2017. Blood 01/03/2025 11:2 4 AM CDT 01/03/2025 11:49 AM CDT us Sunni Telles NP LAB BLOOD ORDERABLES Final Result TASH GRAF ([place]) 1 [facility] Department [place] [address] * Urinalysis reflex to microscopic and culture Urine (01/03/2025 11:24 AM CDT) Color, ur Yellow Yellow Clarity, ur Clear Clear TASH [place] ([place]) Specific gravity, ur 1.019 1.003 - 1.030 TASH [facility] ([place]) pH, urine 5.5 [facility] ([place]) Comment: Interpretive Data U rine pH is affected by diet, medications, systemic acid-base disturbances, and renal tubular function. pH may affect urinary stone formation. For example, urine pH below 6.0 may help reduce the tendency for calcium phosphate stones and pH greater than 6.0 may reduce the tendency for uric acid stone formation. Source: [facility] [employer] Current Interpretive Data was last revised on 2017 Protein, ur ql Negative Negative [facility] ([facility]) Glucose, ur ql Negative Negative [facility] ([place]) Ketones, ur Negative Negative [facility] ([place]) Bilirubin, ur Negative Negative [facility] ([place]) Blood, ur Negative Negative [facility] ([place]) Urobilinogen, ur <2.0 <2.0 mg/dL [facility] ([place]) Nitrite, ur Negative Negative [facility] ([place]) Leukocyte esterase, ur Negative Negative [facility] ([place]) UA reflex comment Reflex conditions for microscopic UA and culture not met. [facility] ([place]) Urine 01/03/2025 11:2 4 AM CDT 01/03/2025 11:48 AM CDT us Sunni Telles NP LAB MICROBIOLOGY - GENERAL ORDERABLES Final Result [facility] ([place]) 1 [facility] Department [place] [address] * (ABNORMAL) CBC with auto differential (01/03/2025 11:24 AM CDT) WBC 5.38 3.80 - 9.90 K/cumm Hgb 11.2(L) 13.0 - 17.5 g/dL [facility] ([place]) Hct 32.7(L) 38.9 - 50.3 % [facility] ([place]) Plt 202 150 - 400 K/cumm [facility] ([place]) MPV 8.6(L) 9.1 - 12.3 fL [facility] ([place]) RBC 3.43(L) 4.30 - 5.80 M/cumm [facility] ([place]) MCV 95.3 81.3 - 96.4 fL [facility] ([place]) MCH 32.7 27.1 - 33.3 pg [facility] ([place]) MCHC 34.3 32.3 - 35.7 g/dL [facility] ([place]) RDW CV 14.1 11.1 - 14.9 % [facility] ([place]) RDW SD 49.1(H) 35.7 - 48.1 fL [facility] ([place]) NRBC abs 0.00 0.00 - 0.01 K/cumm [facility] ([place]) Blood 01/03/2025 11:2 4 AM CDT 01/03/2025 11:49 AM CDT Sunni Telles DIAL REFINISHER LAB BLOOD ORDERABLES Final Result TASH GRAF ([place]) [address] [place] [address] [place] [address] * (ABNORMAL) Erythrocyte sedimentation rate (01/03/2025 11:24 AM CDT) Erythrocyte sedimentation rate 34(H) 1 - 20 mm/hr Blood 01/03/2025 11:2 4 AM CDT 01/03/2025 11:49 AM CDT Sunni Telles DIAL REFINISHER LAB BLOOD ORDERABLES Final Result TASH [facility]RAF ([place]) 1 [facility] [place] [address] * (ABNORMAL) eGFR (12/07/2024 11:07 AM CDT) eGFR 28(L) >=60 mL/min/1. 73 m2 Comment: Interpretive Data Reference Interval Normal >/= 90 mL/min/1.73m2 Mildly decreased* 60 - 89 mL/min/1.73m2 Mildly to moderately decreased 45 - 59 mL/min/1.73m2 Moderately to severely decreased 30 - 44 mL/min/1.73m2 Severely decreased 15 - 29 mL/min/1.73m2 Kidney Failure < 15 mL/min/1.73m2 *Relative to young adult level Estimated glomerular filtration rate is determined by the 2020 CKD-EPI equation recommended by the National Kidney Foundation (A Unifying Approach to GFR Estimation: Recommendations of the NKF-ASK Task Force on Reassessing the Inclusion of Race in Diagnosing Kidney Disease, JASN 2020). The CKD-EPI equation should not be used for patients with unstable renal function and has not been validated in children and those over 70. Current interpretive data was last reviewed 2021. Blood 12/07/2024 11:0 7 AM CDT 12/07/2024 11:19 AM CDT us Tony Harris MD LAB BLOOD ORDERABLES Final Re sult T[facility] ([place]) 1 [facility] Department [place] [address] * Differential, auto (12/07/2024 11:07 AM CDT) Neutrophil abs 4.36 1.50 - 6.50 K/cumm Imm gran abs 0.03 0.00 - 0.10 K/cumm [facility] ([place]) Lymphocyte abs 1.19 0.80 - 3.30 K/cumm [facility] ([place]) Monocyte abs 0.51 0.20 - 0.80 K/cumm [facility] ([place]) Eosinophil abs 0.24 0.00 - 0.50 K/cumm [facility] ([place]) Basophil abs 0.03 0.00 - 0.10 K/cumm [facility] ([place]) Neutrophil pct 68.5 % [facility] ([place]) Comment: Interpretive Data Percent cell count reference ranges are not reported, since discordance with absolute values may lead to misinterpretation of CBC data. Current Interpretive Data was last revised on 2017. Imm gran pct 0.5 % [facility] ([place]) Comment: Interpretive Data Percent cell count reference ranges are not reported, since discordance with absolute values may lead to misinterpretation of CBC data. Current Interpretive Data was last revised on 2017. Lymphocyte pct 18.7 % [facility] ([place]) Comment: Interpretive Data Percent cell count reference ranges are not reported, since discordance with absolute values may lead to misinterpretation of CBC data. Current Interpretive Data was last revised on 2017. Monocyte pct 8.0 % [facility] ([place]) Comment: Interpretive Data Percent cell count reference ranges are not reported, since discordance with absolute values may lead to misinterpretation of CBC data. Current Interpretive Data was last revised on 2017. Eosinophil pct 3.8 % [facility] ([place]) Comment: Interpretive Data Percent cell count reference ranges are not reported, since discordance with absolute values may lead to misinterpretation of CBC data. Current Interpretive Data was last revised on 2017. Basophil pct 0.5 % [facility] ([place]) Comment: Interpretive Data Percent cell count reference ranges are not reported, since discordance with absolute values may lead to misinterpretation of CBC data. Current Interpretive Data was last revised on 2017. Blood 12/07/2024 11:0 7 AM CDT 12/07/2024 11:19 AM CDT us Tony Harris MD LAB BLOOD ORDERABLES Final Re sult SHAW[facility]NA GRAF ([place]) 1 [facility] [place] [address] * PSA screen (12/07/2024 11:07 AM CDT) PSA-Total 0.25 <=6.20 ng/mL TASH GRAF ([place]) Comment: Interpretive Data AGE SEX REFERENCE INTERVAL 0 minutes-150 years Female None 0 minutes-49 years Male None 50-59 years Male 0-3.90 60-69 years Male 0-5.40 70-79 years Male 0-6.20 80-150 years Male 0-6.20 The Kaveh PSA Total assay procedure was used. Results from different manufacturers or methods may not be comparable. Serial testing should be performed using the same method. Current interpretive data last revised 21. Blood 12/07/2024 11:0 7 AM CDT 12/07/2024 11:19 AM CDT us Jerson Arana MD LAB BLOOD ORDERABLES Lyly l Result [facility] ([place]) 1 [facility] [place] [address] * (ABNORMAL) CBC with auto differential (12/07/2024 11:07 AM CDT) WBC 6.36 3.80 - 9.90 K/cumm Hgb 10.7(L) 13.0 - 17.5 g/dL [facility] ([place]) Hct 30.9(L) 38.9 - 50.3 % [facility] ([place]) Plt 164 150 - 400 K/cumm [facility] ([place]) MPV 8.4(L) 9.1 - 12.3 fL [facility] ([place]) RBC 3.25(L) 4.30 - 5.80 M/cumm [facility] ([place]) MCV 95.1 81.3 - 96.4 fL [facility] ([place]) MCH 32.9 27.1 - 33.3 pg [facility] ([place]) MCHC 34.6 32.3 - 35.7 g/dL [facility] ([place]) RDW CV 13.3 11.1 - 14.9 % [facility] ([place]) RDW SD 46.5 35.7 - 48.1 fL [facility] ([place]) NRBC abs 0.00 0.00 - 0.01 K/cumm [facility] ([place]) Blood 12/07/2024 11:0 7 AM CDT 12/07/2024 11:19 AM CDT Narrative [facility] ([place]) - 12/07/2024 11:21 AM CDT Labs can be done earlier than the date on the lab order per office. us Tony Harris MD LAB BLOOD ORDERABLES Final Re sult [facility] ([place]) 1 [facility] [place] [address] * (ABNORMAL) Hemoglobin A1c (12/07/2024 11:07 AM CDT) Pathologist [facility] Hgb A1C 6.4(H) 4.0 - 5.6 % [facility] ([place]) Estimated Average Glucose 137 mg/dL [facility] ([place]) Comment: The ADA recommends reporting an estimated Average Glucose (eAG) with all Hemoglobin A1c results using the equation derived from a study of 507 normal and diabetic adults. Minority populations were underrepresented and children were not included. (Diabetes Care 31:4685-7246, 2008). The eAG is not equivalent to a fasting glucose. Testing performed by: [facility], [facility], [place], [address] Blood 12/07/2024 11:0 7 AM CDT 12/07/2024 11:19 AM CDT Narrative [facility] ([place]) - 12/07/2024 11:35 AM CDT Labs can be done earlier than the date on the lab order per office. Tony Harris MD LAB BLOOD ORDERABLES Final Re sult [facility] ([place]) [address] [place] [address] [place] [address] * (ABNORMAL) Comprehensive metabolic panel (12/07/2024 11:07 AM CDT) [facility] Sodium 137 135 - 145 mmol/L [facility] ([place]) Potassium, pl 4.2 3.3 - 4.9 mmol/L [facility] ([place]) Chloride 102 97 - 110 mmol/L [facility] ([facility]) CO2 22 22 - 32 mmol/L [facility] ([facility]) Anion gap 13 2 - 15 mmol/L [facility] ([place]) BUN 45(H) 6 - 25 mg/dL [facility] ([facility]) Creatinine 2.30(H) 0.80 - 1.30 mg/dL [facility] ([place]) Glucose 149 70 - 199 mg/dL [facility] ([place]) Comment: Interpretive Data Fasting glucose >/= 126 mg/dl is diagnostic for diabetes. Fasting is defined as no caloric intake for at least 8 hours. Fasting glucose between 100 mg/dl to 125 mg/dl is diagnostic of prediabetes. In a patient with classic symptoms of hyperglycemia or hyperglycemic crisis, a random glucose >/= 200 mg/dl is diagnostic for diabetes. In the absence of unequivocal hyperglycemia, results should be confirmed by repeat testing. The classification and Diagnosis of Diabetes Diabetes Care 202; 46: S19-S40. Current interpretive data was last revised 2022. Calcium 9.5 8.5 - 10.3 mg/dL [facility] ([place]) Bilirubin, total 0.3 0.1 - 1.2 mg/dL [facility] ([place]) Protein, pl 6.7 6.5 - 8.5 g/dL [facility] ([place]) Albumin 4.2 3.5 - 5.0 g/dL [facility] ([place]) Alk phos 96 40 - 130 Units/L [facility] ([place]) ALT 19 7 - 55 Units/L [facility] ([place]) AST 23 10 - 50 Units/L [facility] ([place]) Blood 12/07/2024 11:0 7 AM CDT 12/07/2024 11:19 AM CDT Narrative [facility] ([facility]) - 12/07/2024 11:50 AM CDT Labs can be done earlier than the date on the lab order per Dr. Harris office. Tony Harris MD LAB BLOOD ORDERABLES Final Re sult [facility]ASH [facility] ([place]) 1 [facility] [place] [address] * Albumin Creatinine Ratio, Urine (12/07/2024 10:52 AM CDT) Albumin Ur <12.0 mg/L Comment: Interpretive Data No reference range established. Current interpretive data was last revised 2018. Testing performed by: [address] [place]., [address] Creatinine Ur 71.0 mg/dL [facility] ([facility]) Comment: Interpretive Data No reference range established. Current interpretive data was last revised 2018. Testing performed by: [address] [address] Albumin Creatinine Ratio, Ur <17 1 - 29 mg/g [facility] ([place]) Comment:Testing performed by : [facility], [address] [facility], [place]., [address] Urine 12/07/2024 10:5 2 AM CDT 12/07/2024 5:14 PM CDT Narrative [facility] ([place]) - 12/07/2024 6:10 PM CDT Labs can be done earlier than the date on the lab order per Dr. Harris office. us Tony Harris MD LAB URINE ORDERABLES Final Re sult [facility]ASH [facility] ([place]) 1 [facility] [place] [address] * (ABNORMAL) Lipid panel (10/19/2024 9:46 AM CDT) Cholesterol 130 30 - 199 mg/dL Comment: Interpretive Data Ages < or = 19 years Acceptable: <170 mg/dL Borderline high: 170-199 mg/dL High: >or= 200 mg/dL Ages > or = 20 years Desirable: <200 mg/dL Borderline high: 200-239 mg/dL High: >or= 240 mg/dL Literature References: 1. Expert Panel on Integrated Guidelines for Cardiovascular Health and Risk Reduction in Children and Adolescents. Pediatrics 2011;128:S213 2. NCEP Expert Panel. Circulation 2004;110:227 Current Interpretive Data was last revised on 2017. Triglycerides 237(H) <=149 mg/dL [facility] ([place]) Comment: Interpretive Data Ages < or = 9 years Acceptable: <75 mg/dL Borderline high: 75-99 mg/dL High: >or= 100 mg/dL Ages 10 to 20 years Acceptable: <90 mg/dL Borderline high: 90-129 mg/dL High: >or= 130 mg/dL Ages > or = 20 years Desirable: <150 mg/dL Borderline high: 150-199 mg/dL High: 200-499 mg/dL Very high: >or= 499 mg/dL Literature References: 1. Expert Panel on Integrated Guidelines for Cardiovascular Health and Risk Reduction in Children and Adolescents. Pediatrics 2011;128:S213 2. NCEP Expert Panel. Circulation 2004;110:227 Current Interpretive Data was last revised on 2017. HDL 32(L) >=40 mg/dL [facility] ([place]) Comment: Interpretive Data Ages < or = 19 years Acceptable: >45 mg/dL Borderline low: 40-45 mg/dL Low: <40 mg/dL Ages > or = 20 years Desirable: >or= 60 mg/dL Low: <40 mg/dL Literature References: 1. Expert Panel on Integrated Guidelines for Cardiovascular Health and Risk Reduction in Children and Adolescents. Pediatrics 2011;128:S213 2. NCEP Expert Panel. Circulation 2004;110:227 Current Interpretive Data was last revised on 2017. LDL, calculated 60 <=129 mg/dL [facility] ([place]) Comment: Interpretive Data Ages < or = 19 years Acceptable: <110 mg/dL Borderline high: 110-129 mg/dL High: >or= 130 mg/dL Ages > or = 20 years Optimal: <100 mg/dL Near optimal: 100-129 mg/dL Borderline high: 130-159 mg/dL High: >160 mg/dL Calculated using the Souleymane LDL-C estimating equation. This equation was implemented on 2023. Prior to this date LDL-C was estimated using the Friedewald equation. Literature References: 1. Expert Panel on Integrated Guidelines for Cardiovascular Health and Risk Reduction in Children and Adolescents. Pediatrics 2011;128:S213 2. NCEP Expert Panel. Circulation 2004;110:227 3. Souleymane Peters et al. ASHLEIGH Cardiol. 2019September 06;5(5):540-548. doi: 10.1001/jamacardio.2020.0013 Current Interpretive Data was last revised on 2023. Non-HDL Cholesterol 98 mg/dL [facility] G[facility] ([place]) Comment: Interpretive Data Ages < or = 19 years Acceptable: <120 mg/dL Borderline high: 120-144 mg/dL High: >145 mg/dL Ages > or = 20 years When triglycerides are >200 mg/dL, Non-HDL cholesterol is a secondary target of therapy with treatment goals that are 30 mg/dL greater than the LDL cholesterol target. Literature References: 1. Expert Panel on Integrated Guidelines for Cardiovascular Health and Risk Reduction in Children and Adolescents. Pediatrics 2011;128:S213 2. NCEP Expert Panel. Circulation 2004;110:227 Current Interpretive Data was last revised on 2017. Chol/HDL ratio 4 LON [facility] ([place]) Blood 10/19/2024 9:46 AM CDT 10/19/2024 9:49 AM CDT Huong Corley DIAL REFINISHER LAB BLOOD ORDERABLES nal Result [facility] ([place]) 1 [facility] [place] [address] * CT Abdomen Pelvis WO Contrast (02/10/2024 2:04 PM CDT) Anatomical Region Laterality Modality Body N/A Computed Tomogra phy 02/10/2024 2:30 PM CDT Narrative 02/10/2024 2:50 PM CDT EXAM DESCRIPTION: CT ABDOMEN PELVIS WO CONTRAST REASON FOR STUDY: c/o intermittent abdominal pain for 3-4 months. Pt reports today pain is more severe. TECHNIQUE: CT scan of the abdomen and pelvis performed without intravenous and without oral contrast using helical scanning technique. Reconstructed coronal and sagittal MPR images reviewed. All images stored on PACS. Automated exposure control was used as a dose optimization technique for this examination. COMPARISON: Renal ultrasound 01/11/2024 FINDINGS: The sensitivity for detection of visceral lesions is diminished without the use of intravenous contrast. LOWER CHEST: No consolidation or pleural effusion. 2-3 mm pleural-based left upper lobe nodules, image 12 for example. Normal heart size with no pericardial effusion. Three-vessel coronary artery calcification. LIVER: Normal size. No identified cystic or solid masses. GALLBLADDER: No cholelithiasis, wall thickening, or pericholecystic fluid. BILE DUCTS: No intrahepatic or extrahepatic ductal dilatation. SPLEEN: Normal size. No focal lesions. PANCREAS: No identified cystic or solid masses. No significant calcifications. No adjacent inflammation or peripancreatic fluid collections. Pancreatic duct not dilated. ADRENALS: Normal. KIDNEYS/URINARY TRACT: Kidneys appear atrophic. 2.9 cm simple exophytic renal cysts bilaterally. Mild nonspecific perinephric stranding. No renal calculus or hydronephrosis. Normal ureters. Urinary bladder is mildly thick-walled which is more prominent in the anterior bladder on the right, series 3, image 64. Nonspecific 8 mm subtle focus of low attenuation in the bladder wall seen on the same image. GI: No dilated bowel loops. No obvious wall thickening. Normal appendix. Colonic diverticulosis without evidence of diverticulitis. PERITONEUM: No ascites or free air. RETROPERITONEUM: No mass or adenopathy. REPRODUCTIVE: No significant abnormality. Prostate gland is normal size. VASCULATURE: Atherosclerotic calcification of the aorta without aneurysm. MUSCULOSKELETAL: No acute fracture or aggressive osseous lesion. Thoracolumbar degenerative changes with significant diffuse idiopathic skeletal hyperostosis. OTHER: Small fat containing inguinal hernias. Tiny fat containing ventral abdominal wall hernia. Small areas of subcutaneous stranding in the anterior abdominal wall, favor injection sites but clinical correlation is recommended, image 100. IMPRESSION: No acute finding in the abdomen or pelvis. Bilateral renal atrophy with simple renal cysts. No nephrolithiasis. Mild bladder wall thickening with asymmetric thickening of the anterior right bladder. Recommend correlation with urinalysis and cystoscopy for further evaluation. Colonic diverticulosis. According to recent guidelines by the Fleischner Society, no follow up is required for incidental nodules less than 6 mm found on incomplete thoracic imaging on the basis of estimated low risk of malignancy. Note: These recommendations do not apply to patients with immunosuppression, or patients with known primary cancer. http://pubs.rsna.org/doi/pdf/10.1148/radiol.5724589010 THIS IS AN ELECTRONICALLY VERIFIED FINAL REPORT 02/10/2024 2:50 PM - Electronically signed by Alber Gilbert M.D. AG: [employer] Report ID: [id number] Reading Location: [place] [address] Procedure Note Alber Gilbert MD - 02/10/2024 EXAM DESCRIPTION: CT ABDOMEN PELVIS WO CONTRAST REASON FOR STUDY: c/o intermittent abdominal pain for 3-4 months. Ptreports today pain is more severe. TECHNIQUE: CT scan of the abdomen and pelvis performed without intravenousand without oral contrast using helical scanning technique. Reconstructed coronal and sagittal MPR images reviewed. All images stored on PACS.Automated exposure control was used as a dose optimization technique for this examination. COMPARISON: Renal ultrasound 01/11/2024 FINDINGS: The sensitivity for detection of visceral lesions is diminished withoutthe use of intravenous contrast. LOWER CHEST: No consolidation or pleural effusion. 2-3 mm pleural-based left upper lobe nodules, image 12 for example. Normal heart size with no pericardial effusion. Three-vessel coronary artery calcification. LIVER: Normal size. No identified cystic or solid masses. GALLBLADDER: No cholelithiasis, wall thickening, or pericholecysticfluid. BILE DUCTS: No intrahepatic or extrahepatic ductal dilatation. SPLEEN: Normal size. No focal lesions. PANCREAS: No identified cystic or solid masses. No significant calcifications. No adjacent inflammation or peripancreatic fluidcollections. Pancreatic duct not dilated. ADRENALS: Normal. KIDNEYS/URINARY TRACT: Kidneys appear atrophic. 2.9 cm simple exophyticrenal cysts bilaterally. Mild nonspecific perinephric stranding. No renalcalculus or hydronephrosis. Normal ureters. Urinary bladder is mildlythick-walled which is more prominent in the anterior bladder on the right, series 3,image 64. Nonspecific 8 mm subtle focus of low attenuation in the bladder wallseen on the same image. GI: No dilated bowel loops. No obvious wall thickening. Normalappendix. Colonic diverticulosis without evidence of diverticulitis. PERITONEUM: No ascites or free air. RETROPERITONEUM: No mass or adenopathy. REPRODUCTIVE: No significant abnormality. Prostate gland is normalsize. VASCULATURE: Atherosclerotic calcification of the aorta withoutaneurysm. MUSCULOSKELETAL: No acute fracture or aggressive osseous lesion. Thoracolumbar degenerative changes with significant diffuse idiopathic skeletal hyperostosis. OTHER: Small fat containing inguinal hernias. Tiny fat containingventral abdominal wall hernia. Small areas of subcutaneous stranding in theanterior abdominal wall, favor injection sites but clinical correlation isrecommended, image 100. IMPRESSION: No acute finding in the abdomen or pelvis. Bilateral renal atrophy with simple renal cysts. No nephrolithiasis. Mild bladder wall thickening with asymmetric thickening of the anteriorright bladder. Recommend correlation with urinalysis and cystoscopy for further evaluation. Colonic diverticulosis. According to recent guidelines by the Fleischner Society, no follow up is required for incidental nodules less than 6 mm found on incompletethoracic imaging on the basis of estimated low risk of malignancy. Note: These recommendations do not apply to patients withimmunosuppression, or patients with known primary cancer. http://pubs.rsna.org/doi/pdf/10.1148/radiol.6521873372 THIS IS AN ELECTRONICALLY VERIFIED FINAL REPORT 02/10/2024 2:50 PM - Electronically signed by Alber Gilbert M.D. AG: AG Report ID: [id number] Reading Location: [id number] us Saman Gonzales MD IMG CT PROCEDURES Final Result * Diabetic Eye Exam (03/11/2023) 03/11/2023 us Generic External Data Provider [facility] MAINTENANC [facility] Final Result * COLONOSCOPY (09/09/2021 9:48 AM CDT) Anatomical Region Laterality Modality Other Narrative Procedure Note Anthony Chandler MD - 09/09/2021 9:48 AM CDT [facility] Endoscopy Lab Patient Name: Miguel Angel Starr Procedure Date: 09/09/2021 9:48 AM Date of : 1945 Admit Type: Outpatient Age: 75 Gender: Male Note Status: Finalized Attending MD: Anthony Chandler M.D. Procedure Date: 09/09/2021 Procedure: Colonoscopy Indications: High risk colon cancer surveillance: Personalhistory of colonic polyps, Last colonoscopy: August 2018 Providers: Anthony Chandler M.D., Rebecca Kennedy RN, DarneiceM. Merritt, Elevator Service Technician Referring MD: Gunnar Chester M.D. Medicines: Monitored Anesthesia Care Complications: No immediate complications. Estimated Blood Loss: Estimated blood loss: none. Procedure: Pre-Anesthesia Assessment: - Airway Examination: normal oropharyngeal airwayand neck mobility. - Respiratory Examination: clear to auscultation. - ASA Grade Assessment: III - A patient with severe systemic disease. - After reviewing the risks and benefits, thepatient was deemed in satisfactory condition to undergo the procedure. - The risks and benefits of the procedure and the sedation options and risks were discussed with the patient. All questions were answered and informed consent was obtained. After I obtained informed consent, the scope was passed under direct vision. Throughout theprocedure, the patient's blood pressure, pulse, and oxygen saturations were monitored continuously. The scopewas passed under direct vision. The Colonoscope was introduced through the anus and advanced to the the cecum, identified by the appendiceal orifice, ileocecal valve and palpation. The colonoscopy was performed with ease. The patient tolerated the procedure well. The quality of the bowelpreparation was fair. The quality of the bowel preparation was evaluated using the BBPS ([place] Bowel Preparation Scale) with scores of: Right Colon = 1 (portion of mucosa seen, but other areas not well seen due to staining, residual stool and/or opaque liquid), Transverse Colon = 2 (minor amount of residual staining, small fragments of stool and/or opaque liquid, but mucosa seen well) and Left Colon = 3 (entire mucosa seen well with no residual staining, small fragments of stool or opaque liquid). Thetotal BBPS score equals 6. The quality of the bowel preparation was fair. The bowel preparation usedwas GoLYTELY via split dose instruction. Findings: The perianal and digital rectal examinations were normal. A 3 mm polyp was found in the cecum. The polyp was sessile. The polyp was removed with a jumbo cold forceps. Resection and retrieval were complete. Estimated blood loss: none. A 6 mm polyp was found in the descending colon. The polyp wassessile. The polyp was removed with a cold snare. Resection and retrieval were complete. Estimated blood loss: none. The retroflexed view of the distal rectum and anal verge was normaland showed no anal or rectal abnormalities. Impression: - Preparation of the colon was fair. - Preparation of the colon was fair. - One 3 mm polyp in the cecum, removed with a jumbo cold forceps. Resected and retrieved. - One 6 mm polyp in the descending colon, removedwith a cold snare. Resected and retrieved. - The distal rectum and anal verge are normal on retroflexion view. Recommendation: - Discharge patient to home (ambulatory). - Await pathology results. - No aspirin, ibuprofen, naproxen, or other non-steroidal anti-inflammatory drugs for 2 weeks after polyp removal. - Repeat colonoscopy in 5 years for surveillance. Procedure Code(s): --- Professional --- 34353, Colonoscopy, flexible; with removal of tumor(s), polyp(s), or other lesion(s) by snare technique 71181, 59, Colonoscopy, flexible; with biopsy,single or multiple Diagnosis Code(s): --- Professional --- Z86.010, Personal history of colonic polyps D12.0, Benign neoplasm of cecum D12.4, Benign neoplasm of descending colon CPT copyright 2020 [employer]. All rights reserved. The codes documented in this report are preliminary and upon lead systems engineer reviewmay be revised to meet current compliance requirements. Electronically signed by Anthony Chandler MD Anthony Chandler M.D. 09/09/2021 10:29:40 AM Number of Addenda: 0 Note Initiated On: 09/09/2021 9:48 AM us Anthony Chandler MD ENDOSCOPY PROCEDURES Edited Resu lt - Final * CT Lung Cancer Screening (08/12/2016) Anatomical Region Laterality Modality Chest N/A Computed Tomogra phy us Historical Provider IMG CT PROCEDURES Final R esult * DIABETES FOOT EXAM (08/02/2016) Diabetic Foot Exam Unknown us Historical Provider HEALTH MAINTENANCE Final Result from Last 3 Months or Most Recently Relevant to Health Maintenance Insurance UHC MEDICARE ADVANTAGE [facility] MEDICARE [facility] MEDICARE Advance Directives For more information, please contact: [phone] Documents on File Type Date Recorded Patient Field Coordinator Expl anation ADVANCE DIRECTIVE 12/23/2018 10:33 AM ANNA R OF ENVIRONMENTAL COMPLIANCE ENGINEER-MEDICAL * Full Code (Latest Code Status on File) Date Activated Date Inactivated Comments 12/24/2018 2:41 PM 09/09/2021 7:03 AM * Full Code Date Activated Date Inactivated Comments 12/20/2018 7:51 PM 12/22/2018 5:05 PM * Full Code Date Activated Date Inactivated Comments 07/03/2018 2:07 PM 07/04/2018 9:45 PM * Full Code Date Activated Date Inactivated Comments 05/22/2018 7:57 PM 06/26/2018 9:45 AM * Full Code Date Activated Date Inactivated Comments 05/17/2018 12:30 PM 05/19/2018 3:29 PM Healthcare Agents on File Name Relationship Healthcare Agent Relationshi p Communication Yvette Starr Spouse Health Care Agent [phone] (Mobile) Care Teams Shield Runner Relationship Specialty Start Date End Date Jerson Arana MD [address] [place] [id number] PCP - General Family Medicine 08/10/23
--- OUTSIDE RECORDS SUMMARY | 2025-01-31 07:49 | XMS_ITS | Clinical Summary ---
Author Organization [facility] Address [address] [facility] [place] [address] Phone Care Team Providers Care Field Tech Name Role Phone Chay Chester MD Primary Care Provider [phone] Derek Schmidt DPM Unavailable [phone] Allergies No known active allergies Medications allopurinol (ZYLOPRIM) 300 MG Tablet Take 300 mg by mouth daily. Active Aspirin 81 MG Tablet Take 81 mg by mouth daily. Active citalopram (CELEXA) 40 MG Tablet Take 40 mg by mouth daily. Active losartan-hydroc hlorothiazide (HYZAAR) 50-12.5 MG Tablet Take 1 Tab by mouth daily. Active metFORMIN (GLUCOPHAGE) 1000 MG Tablet Take 2,000 mg by mouth nightly. Active cetirizine (ZYRTEC) 10 MG Tablet Take 10 mg by mouth daily. Active insulin lispro (HUMALOG) 100 UNIT/ML SolutionIndicat ions:sliding scale by Subcutaneous route 3 times daily. Use as directed Active insulin glargine (LANTUS) 100 UNIT/ML Solution 40 Units by Subcutaneous route every evening. Active Cyanocobalamin (VITAMIN B-12 IJ) 1,000 mL by Injection route every 14 days. Active Liraglutide (VICTOZA) 18 MG/3ML Solution Pen-injector 12.5 mg by Subcutaneous route daily. Active solifenacin (VESICARE) 10 MG Tablet Take 10 mg by mouth daily. Active ROPINIRole HCl (REQUIP PO) Take by mouth as needed. Active VIGAMOX 0.5 % Solution 7 Active dilTIAZem (CARDIZEM) 30 MG Tablet Take 30 mg by mouth daily. Active simvastatin (ZOCOR) 10 MG Tablet Take 10 mg by mouth every evening. Active fish oil-omega-3 fatty acids 1000 MG Capsule Take 1,000 mg by mouth daily. Active gabapentin (NEURONTIN) 300 MG Capsule TAKE 1 CAPSULE BY MOUTH UP TO 3 TIMES DAILY TOLERATED 270 Cap 3 9 Active Active Problems Problem Noted Date Diagnosed Date Dermatophytosis of nail 10/17/2017 Ingrown nail 10/17/2017 Diabetic polyneuropathy asso ciated with type 2 diabetes mellitus 11/02/2016 Lumbar radiculopathy 11/02/2016 Immunizations Immunization Administration Dates Next Due Covid-19, Mrna, Lnp-s, Pf, 30 Mcg/0.3 Ml Dose (P fizer) 07/28/2020,07/07/2020 Family History Medical History Relation Name Comments Coronary Artery Disease Brother Parkinsonism Brother Stroke Brother Hypertension Father Heart Disease Mother Lupus Mother Stroke Mother Relation Name Status Comments Brother Father Mother Social History Tobacco Use Types Packs/Day Years Used Date Smoking Tobacco: Former Cigarettes 1.5 40 0 01/07/1978 - 01/07/2018 Smokeless Tobacco: Never Tobacco Cessation:Ready to Q uit: No; Counseling Given: Yes Alcohol Use Standard Drinks/Week Comments Yes 0 (1 standard drink = 0.6 oz pur e alcohol) occasionally Sex and Gender Information Value Date Recorded Sex Assigned at Not on file Legal Sex Male 11:00 PM CDT Gender Identity Not on file Sexual Orientation Not on file Last Filed Vital Signs Vital Sign Reading Time Taken Comments Blood Pressure 128/64 06/29/2018 1:05 PM TRIAL EXAMINER Pulse 77 06/29/2018 1:05 PM TRIAL EXAMINER Temperature 37.3 C (99.1 F) 06/29/2018 1:05 PM TRIAL EXAMINER Respiratory Rate 18 06/29/2018 1:05 PM TRIAL EXAMINER Oxygen Saturation 97% 06/29/2018 1:05 PM TRIAL EXAMINER Inhaled Oxygen Concentration - - Weight 129.6 kg (285 lb 12.8 oz) 06/29/2018 1:05 PM TRIAL EXAMINER Height 182.9 cm (6') 06/29/2018 1:05 PM TRIAL EXAMINER Body Mass Index 38.76 06/29/2018 1:05 PM TRIAL EXAMINER Plan of Treatment Health Maintenance Due Date Last Done Comments Diabetes: Eye Exam 1945 Diabetes: Foot Exam 1945 Hepatitis C Virus (HCV) Screening 1945 TdaP Immunization 1945 Pneumococcal Immunization (5 0+ years) (2 of 2 - PPSV23, PCV20, or PCV21) 05/06/2015 03/11/2015 Diabetes: Nephropathy Screening 03/10/2018 03/10/2017 Diabetes: Hemoglobin A1c 03/25/2018 018, 06/21/2017, 03/10/2017 Respiratory Syncytial Virus (RSV) Immunization (Adult) (1 - 1-dose 75+ series) 12/16/2019 Influenza Immunization (#1) 01/07/202501/2020, 03/29/2019, 03/28/2013 SARS-COV-2 Immunization ( season) 2025 02/23/2021, 07/28/2020, 07/07/2020 Pneumococcal Immunization Combined Discontinued 03/11/2015 Colonoscopy Discontinued 12/06/2017, 07/11/2012, 08/16/2006 Colorectal Cancer Screening Discontinued Zoster Immunization Completed 05/30/2020, 02/14/2020, 03/04/2015 Cologuard Discontinued Hepatitis B Immunization Aged Out No longer eligible based on patient's age to complete this topic Human Papillomavirus (HPV) Immunization Aged Out No longer eligible based on patient's age to complete this topic Immunochemical Fecal Occult Blood Discontinued Meningococcal Immunization (ACWY) Aged Out No longer eligible based on patient's age to complete this topic Rotavirus Immunization Aged Out No lo nger eligible based on patient's age to complete this topic Procedures Procedure Name Priority Date/Time Associated Diagnosis Comments HEMOGLOBIN A1C W/ ESTIMATED GLUCOSE Routine 06/21/2017 8:02 AM TRIAL EXAMINER Diabetic glomerulopathy (HCC) CMP (COMPREHENSIVE METABOLIC PANEL) Routine 03/10/2017 3:46 PM CDT Diabetic polyneuropathy associated with type 2 diabetes mellitus (HCC) HM COLONOSCOPY Routine 07/11/2012 from Last 3 Months or Most Recently Relevant to Health Maintenance Results * HEMOGLOBIN A1C W/ ESTIMATED GLUCOSE (06/21/2017 8:02 AM TRIAL EXAMINER) HGB-A1C 6.0 4.4 - 6.4 % 06/21/2017 9:05 AM TRIAL EXAMINER [facility] Est Average Glucose 125.5 mg/dL 06/21/2017 9:05 AM TRIAL EXAMINER [facility] Blood specimen (specimen) Venipuncture / Unknown 06/21/2017 8:02 AM TRIAL EXAMINER 06/21/2017 8:11 AM TRIAL EXAMINER Narrative [facility] - 06/21/2017 9:05 AM TRIAL EXAMINER HEMOGLOBIN A1C: DIABETIC PATIENTS: WELL-CONTROLLED: 6.2 - 7.0 INTERMEDIATE WELL-CONTROLLED: 7.0 - 9.0 POORLY-CONTROLLED: >9.0 us Feliciano Mars MD CHEMISTRY ORDERABLES Final Res ult [facility] [address] [place] [address] * (ABNORMAL) CMP (COMPREHENSIVE METABOLIC PANEL) (03/10/2017 3:46 PM CDT) Pathologist [facility] SODIUM 138 131 - 143 mmol/L 03/10/2017 5:17 PM CDT [facility] POTASSIUM 4.2 3.5 - 5.1 mmol/L 03/10/2017 5:17 PM CDT [facility] CHLORIDE 101 100 - 110 mmol/L 03/10/2017 5:17 PM CDT [facility] CO2, VENOUS 28 22 - 32 mmol/L 03/10/2017 5:17 PM CDT [facility] ANION GAP 13.2 8.0 - 20.0 mmol/L 03/10/2017 5:17 PM CDT [facility] GLUCOSE 94 70 - 105 mg/dL 03/10/2017 5:17 PM CDT [facility] BUN 31 10 - 31 mg/dL 03/10/2017 5:17 PM CDT [facility] CREATININE, BLOOD 1.64(H) 0.60 - 1.30 mg/dL 03/10/2017 5:17 PM CDT [facility] BUN/CREATININE RATIO 19 12 - 20 ratio 03/10/2017 5:17 PM CDT [facility] TOTAL PROTEIN 7.1 6.0 - 8.3 g/dL 03/10/2017 5:17 PM CDT [facility] ALBUMIN 4.3 3.5 - 5.2 g/dL 03/10/2017 5:17 PM CDT [facility] A/G RATIO 1.5 1.0 - 2.0 03/10/2017 5:17 PM CDT [facility] CALCIUM 9.7 8.9 - 10.3 mg/dL 03/10/2017 5:17 PM CDT [facility] T BILI 0.2(L) 0.3 - 1.2 mg/dL 03/10/2017 5:17 PM CDT [facility] SGOT (AST) 23 1 - 40 U/L 03/10/2017 5:17 PM CDT [facility] SGPT (ALT) 21 1 - 40 U/L 03/10/2017 5:17 PM CDT [facility] ALKALINE PHOSPHATASE 78 40 - 130 U/L 03/10/2017 5:17 PM CDT [facility] GFR, EST. NONAFRICAN 42(L) >=60 03/10/2017 5:17 PM CDT [facility] GFR, EST. 50(L) >=60 03/10/2017 5:17 PM CDT [facility] Comment: Creatinine Clearance is the preferred criteria for selecting drug dose adjustments in renally impaired patients. The GFR is provided as additional pertinent clinical information. GFR is reported in mL/min/1.73 sq m. Blood specimen (specimen) Venipuncture / Unknown 03/10/2017 3:46 PM CDT 03/10/2017 4:28 PM CDT us Dat Luque MD CHEMISTRY ORDERABLES Final R esult [facility] [address] [place] [address] * HM COLONOSCOPY (07/11/2012) Reza Perdomo DO PROCEDURE/MINOR SURGICAL ORDERA BLES Final Result from Last 3 Months or Most Recently Relevant to Health Maintenance Care Teams Field Tech Relationship Specialty Start Date End Date Chay Chester MD PCP - General Internal Medicine 11/02/16 Derek Schmidt DPM Consulting Physician Podiatry 11/02/16
--- OUTSIDE RECORDS SUMMARY | 2025-01-31 07:49 | XMS_ITS | Clinical Summary ---
Author Organization [facility] Address [address] [place] [address] Care Team Providers Care Hand Or Machine Paster Name Role Phone Reza Gonzalez MD Unavailable [phone] Source Comments [facility],non-owned Affiliates and Associated Physician Practices is amultiple site organization consisting of ambulatory clinics and hospital sitesin [place], [place], [place] and [place]. This disclosure is being madepursuant to the Care Everywhere program and may not contain all information available regarding this patient. Last updated 18.[facility] Allergies No known active allergies Medications * Be aware that medications may not be up to date on this document. Alwaysverify current medications with the patient. metformin (GLUCOPHAGE) 1000 MG tablet Take 1000 mg by mouth 2 times daily with breakfast and dinner. Active citalopram (CELEXA) 20 MG tablet Take 20 mg by mouth daily with breakfast. Active Solifenacin Succinate (VESICARE PO)Indications: Knee pain,DJD (degenerative joint disease),Hamstr ing tendonitis at origin,Pes anserinus tendinitis or bursitis Take by mouth. Activ e Liraglutide (VICTOZA SC)Indications: Knee pain,DJD (degenerative joint disease),Hamstr ing tendonitis at origin,Pes anserinus tendinitis or bursitis Inject subcutaneously . Active Telmisartan-HCT Z (MICARDIS HCT PO)Indications: Knee pain,DJD (degenerative joint disease),Hamstr ing tendonitis at origin,Pes anserinus tendinitis or bursitis Take by mouth. Activ e allopurinol (ZYLOPRIM) 300 MG tabletIndicatio ns:Knee pain,DJD (degenerative joint disease),Hamstr ing tendonitis at origin,Pes anserinus tendinitis or bursitis Take 300 mg by mouth once daily. Active Cyanocobalamin (B-12 PO)Indications: Knee pain,DJD (degenerative joint disease),Hamstr ing tendonitis at origin,Pes anserinus tendinitis or bursitis Take by mouth. Activ e simvastatin (ZOCOR) 10 MG tabletIndicatio ns:Knee pain,DJD (degenerative joint disease),Hamstr ing tendonitis at origin,Pes anserinus tendinitis or bursitis Take 10 mg by mouth at bedtime. Active CETIRIZINE HCL POIndications:K nee pain,DJD (degenerative joint disease),Hamstr ing tendonitis at origin,Pes anserinus tendinitis or bursitis Take by mouth. Activ e traMADol (ULTRAM) 50 MG tabletIndicatio ns:Knee pain,DJD (degenerative joint disease),Hamstr ing tendonitis at origin,Pes anserinus tendinitis or bursitis Take 1 Tab by mouth every 8 hours. 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[employer] Gender Identity Not on file Sexual Orientation Not on file Last Filed Vital Signs Vital Sign Reading Time Taken Comments Blood Pressure 108/48 10/24/2009 8:20 AM CDT Pulse 66 10/24/2009 8:20 AM CDT Temperature 36.7 C (98.1 F) 10/24/2009 5:41 AM CDT Respiratory Rate 18 10/24/2009 5:41 AM CDT Oxygen Saturation 95% 10/24/2009 5:41 AM CDT Inhaled Oxygen Concentration - - Weight 108.9 kg (240 lb) 09/04/2012 10:51 AM CDT Height 182.9 cm (6') 09/04/2012 10:51 AM CDT Body Mass Index 32.55 09/04/2012 10:51 AM CDT Plan of Treatment Health Maintenance Due Date Last Done Comments DTAP/TDAP/TD VACCINES (1 - Tdap) 12/16/1964 PNEUMOCOCCAL VACCINE 50+ (1 of 1 - PCV) 1994 ZOSTER VACCINE (1 of 2) 1994 Respiratory Syncytial Virus (RSV) Vaccine Pt: or over 60 yrs (1 - 1-dose 75+ series) 12/16/2019 DEPRESSION SCREENING 05/09/2024 COVID-19 VACCINE (1 - 2023-2 5 season) 2025 INFLUENZA VACCINE (#1) 2025 HEPATITIS B VACCINE Aged Out No longe r eligible based on patient's age to complete this topic HIB VACCINE Aged Out No longer eligi ble based on patient's age to complete this topic HPV VACCINE Aged Out No longer eligi ble based on patient's age to complete this topic MENINGOCOCCAL (Group B) VACC INE SHARED DECISION-MAKING Aged Out No longer eligibl e based on patient's age to complete this topic MENINGOCOCCAL GROUPS A/C/Y/W VACCINE Aged Out No longer eligible b ased on patient's age to complete this topic Insurance UHC MANAGED MEDICARE ADV MEDICARE [employer] Advance Directives Documents on File Type Date Recorded Patient Make Up Artist Expl anation Adv Directive/Living Will/POA 10/25/2009 1:18 PM Adv Directive/Living Will/POA 10/15/2009 2:58 PM * Full Code (Latest Code Status on File) Date Activated Date Inactivated Comments 10/21/2009 3:17 PM 10/24/2009 11:49 PM Care Teams Hand Or Machine Paster Relationship Specialty Start Date End Date Reza Gonzalez MD Orthopedic Surgery 09/04/12
--- OUTSIDE RECORDS SUMMARY | 2025-01-31 07:49 | XMS_ITS | Clinical Summary ---
Author Organization [facility] Address [address] 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
[2025-01-31 10:16] LABS: Hematocrit 35.5 % (42.0-52.0); Hemoglobin 11.8 g/dL (14.0-18.0); Mean Corpuscular HGB Conc 33.2 g/dl (32-36); Mean Corpuscular Hemoglobin 32.0 pg (26-34); Mean Corpuscular Volume 96.2 fl (80-100); Platelet Count Result 191 k/mm3 (150-375); Red Blood Count 3.69 M/mm3 (4.6-6.20); White Blood Count 6.1 K/mm3 (4.5-10.0)
[2025-01-31 10:18] LABS: Add Urine Microscopic? NO; Appearance Urine Clear (Clear); Glucose Urine UA Negative (Negative); Leukocyte Esterase Ur Negative LEU/UL (Negative); Nitrate Urine Negative (Negative); Specific Grav Ur 1.016 (1.001-1.035)
[2025-01-31 10:26] LABS: Hemoglobin A1C 6.4 % (<5.7)
[2025-01-31 10:36] LABS: Anion Gap 9 mmol/L (4-12); Blood Urea Nitrogen 35 mg/dL (9-20); Calcium 9.3 mg/dL (8.4-10.2); Carbon Dioxide 27 mmol/L (22-30); Chloride 101 mmol/L (98-107); Estimated Glomerular Filt Rate 28; Glucose 147 mg/dL (65-110); Potassium 4.2 mmol/L (3.4-5.0); Sodium 137 mmol/L (137-145)
[2025-01-31 10:39] LABS: INR 1.4; Prothrombin Time 17.5 Seconds (11.1-14.7)
[2025-01-31 10:40] LABS: Partial Thromboplastin Time 32.0 Seconds (22.3-36.8)
== END 2025-01-31 07:42 | disposition home or self-care (01) ==
PROVIDERS: PCP Hospitalist; Visit Provider Neurological Surgery
DX: M54.50 Low back pain, unspecified (principal); Z01.818 Encounter for other preprocedural examination
CPT/HCPCS: 36415; 80048; 81003; 83036; 85027; 85610; 85730

== ENCOUNTER 2025-02-13 01:55 | Day surgery (SDC) | payer MEDICARE, SELFPAY ==
--- OUTSIDE RECORDS SUMMARY | 2023-02-10 10:07 | XMS_ITS | Encounter Summary ---
Author Organization [facility] Healthcare Address [address] [place] [address] Care Team Providers Care Medical Geneticist Name Role Phone Chay Chester MD Primary Care Provider [phone] Encounter Details Date Type Department Care Team (Late st Contact Info) Description 02/10/2023 10:07 AM CDT Hospital Encounter [facility] [address] [address] Social History Tobacco Use Types [...] than three times a week 12/21/2018 Attends Congregational Services More than 4 times per year [...] on file Legal Sex Male 3:59 PM DIRECTOR ONCOLOGY Gender Identity Not on file Sexual Orientation [...] COVID: Suspected 04/16/2024 04/16/2024 04/16/2024 2:48 PM DIRECTOR ONCOLOGY COVID: Suspected 04/26/2024 04/26/2024 04/26/2024 2:56 PM DIRECTOR ONCOLOGY documented as of this encounter Care Teams Medical Geneticist Relationship Specialty Start Date End Date Chay Chester MD PCP - General 08/06/16 08/09/23 documented as of this encounter
--- OUTSIDE RECORDS SUMMARY | 2024-03-29 09:30 | XMS_ITS ---
Author Organization [facility] Address [address] [place], [place] [address] Care Team Providers Care Topographical Surveyor Name Role Phone Chay Chester Primary Care Provider Tony Darby Unavailable [phone] Encounters Encounter Location Date Provider Diagnosis [facility] [address] [place], [place] [id number] 03/29/2024 Tony Harris Plan Of Treatment Next Appt Details Provider Name:Tony Harris , 04/10/2025 02:15:00 PM, [address], [place], [place], [id number], Progress Notes * Danelle DICKSONOB:1945 ([age] yo M)Acc No.[id number]:03/29/2024 Progress Notes Patient: Miguel Angel HOLLINGSWORTH Provider: Suyapa Harris MD :1945 A ge:78 Y S ex:Male Date:03/29/2024 Address[facility] [facility] Pcp:Chay Chester Subjective: * Chief Complaints: * * Medical History: Objective: * Vitals: Assessment: Plan: * Treatment: * * Electronic signature of Sharad Harris MD on 02/13/2025 at 01:58 AM CDT Sign off status: Pending * Provider: Suyapa Harris MD Date: 05/29/2023 Generated for Printi ng/Faxing/eTransmitting on: 01:58 AM CDT
--- OUTSIDE RECORDS SUMMARY | 2024-04-09 10:45 | XMS_ITS ---
Author Organization [facility] Address [address] [place], [place] [address] Care Team Providers Care Automation And Control Engineer Name Role Phone Chay Chester Primary Care Provider Tony Darby Unavailable [phone] Allergies No Known Allergies REASON FOR VISIT [...] Encounter Location Date Provider Diagnosis [facility] [address] [place], [place] [id number] 04/09/2024 Tony Harris CKD (chronic kidney disease) [...] Provider Name:Tony Harris , 04/10/2025 02:15:00 PM, [address] [facility], [place], [place], [id number], Progress Notes * Danelle DICKSONOB:1945 ([age] yo M)Acc No.[id number]:04/09/2024 Progress Notes Patient: Miguel Angel HOLLINGSWORTH Provider: Suyapa Harris MD :1945 A ge:78 Y S ex:Male Date:04/09/2024 Address:[address] [place] [address] [facility] Pcp:Chay Chester Subjective: * Chief Complaints: * [...] 1 06/10/2023 Generated for Nenita choi/Joyce/Marta on: 1 01:58 AM CDT
--- NOTE | 2025-01-31 07:45 | PC.NURSE ---
[facility] has started construction of its new state of the art ER which will open Spring 2026. With this, we anticipate parking may be a challenge for some our surgical patients and families. Parking spaces are limited but are available for all Surgical, obstetrics, and ER patients sharing this lot. If you arrive and find you are having a hard time finding a parking space, please note that we understand the challenges, please drive around the hospital and park near Hospital Entrance 1. When you enter this entrance, you can ask a volunteer to direct or take you back to the surgical waiting area to check in. We appreciate everyone?s understanding of these expected challenges while we build for your future. Report to the Outpatient Waiting Room, entrance under the green pavilion located off [address], at time __6 am on date _02/13/25 . Planned Procedure Time: _7:30 am .? Time changes happen often and if your time is changed the preop area will call you the afternoon before. - You and your visitor will be asked to self-screen and do not enter if you have any COVID symptoms. Please call surgeon if you need to reschedule. - A mask is optional within the hospital at this time. Patients may have clear liquids (water, carbonated beverages, clear teas, apple juice) until 3 hours prior to surgery ( 4:30 am) with a maximum of 20 ounces. - No food from midnight until time of surgery and no smoking, or chewing tobacco (or any form of nicotine). No chewing gum, candy or mints. Take only the following medications with a SIP of water on the morning of surgery: _DILTIAZEM,ESCITALOPRAM,GABAPENTIN,LEVOTHYROXINE, DO NOT STOP ANY OF YOUR OTHER PRESCRIPTION MEDICATIONS PRIOR TO SURGERY EXCEPT THE FOLLOWING Hold all vitamins and supplements for 3 days per anesthesiologist.LAST DOSE 02/09/25 Medications to discontinue per physician ____XARELTO PER DR BEAR Date to take last dose Please no make-up, nail bengali, hairspray, perfume, deodorant, or body powder the day of surgery.? No jewelry (including any body piercings) or valuables the day of surgery, leave them at home.? Please take a shower or bath the night before, or the morning of, surgery with an antibacterial soap.? Wear comfortable, loose fitting clothing.? Children are encouraged to wear pajamas. - Jewelry must be removed prior to entering the operating room.? Rings and piercings that are not removed may be cut off. - The hospital will not accept responsibility for valuables.? - Please leave all valuables, including medications, at home the day of surgery. If you are going home after surgery, a licensed bulk tank driver must drive you home.? - NO public transportation without another adult if you receive anesthesia. - We recommend that an adult stay with you for 24 hours following discharge. - We also recommend that you do not drive, make important decision, drink alcoholic beverages, or take any drugs that were not prescribed by your health care provider for at least 24 hours after your discharge time. For Pediatric surgeries, we recommend two adults accompany the child home. Follow any additional instructions given to you from your surgeon. VERBAL AND WRITTEN instructions given to _PATIENT AND WIFE and asked if any additional questions and then verbalized understanding. Patient advised to call surgeon office or pre surgery nurse liaison [phone] if any additional questions.
[2025-01-31 07:54] VITALS: BMI 37.6
[2025-01-31 09:04] VITALS: BP 111/62; PULSE 71; RESP 18; TEMP 36.6; O2SAT 96
[2025-02-13] VITALS (9 sets, daily range): BP systolic 104–129; BP diastolic 45–54; PULSE 62–71; RESP 11–20; TEMP 36.3–36.4; O2SAT 94–100
--- NOTE | ~2025-02-13 | XR_ITS ---
EXAMINATION: XR fluoroscopy no charge DATE: 02/13/2025 09:39 INDICATION: T9 laminotomy TECHNIQUE: 2 fluoroscopic images of the lower thoracic spine were obtained during procedure performed by Dr. Andrea. Radiologist was not present for the imaging or procedure. The amount of fluoroscopy time used during this procedure was 0.1 minutes. Total DAP was 1.31 Gycm^2. COMPARISON: None. FINDINGS: Images demonstrate a spinal stimulator with leads projecting over the central canal distal tip at the level of the inferior aspect of the T7 vertebral body. There is a small lucency projecting caudal to the stimulator at level of T9 which likely represents the site of the reported T9 laminotomy. IMPRESSION: 1. Fluoroscopy utilized during neurosurgical procedure the lower thoracic spine. See procedure note for further detail. Reviewed, dictated and finalized at location A. IMPRESSION: 1. Fluoroscopy utilized during neurosurgical procedure the lower thoracic spine . See procedure note for further detail.
--- NOTE | ~2025-02-13 | XR_ITS ---
Examination: XR chest 2V Clinical History: PRE OP SPINAL STIMULATOR PLACEMENT Comparison: None Technique: PA and Lateral Findings: Cardiomediastinal silhouette normal size and configuration. Lungs clear. Minimal bibasilar atelectasis. No acute bony abnormality. IMPRESSION: 1. No acute cardiopulmonary findings. Reviewed, dictated and finalized at location R.
--- OUTSIDE RECORDS SUMMARY | 2025-02-13 01:58 | XMS_ITS | Clinical Summary ---
Author Organization [facility] Address [address] [place] [address] Care Team Providers Care Animal Ride Attendant Name Role Phone Reza Gonzalez MD Unavailable [phone] Source Comments [facility],non-owned Affiliates and Associated Physician Practices is amultiple site organization consisting of ambulatory clinics and hospital sitesin [place], [place], [place] and [place]. This disclosure is being madepursuant to the Care Everywhere program and may not contain all information available regarding this patient. 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
--- OUTSIDE RECORDS SUMMARY | 2025-02-13 01:58 | XMS_ITS | Encounter Summary ---
Author Organization [facility] Healthcare Address [address] [place] [address] Care Team Providers Care Cad Technician Name Role Phone Jerson Ortega MD Primary Care Provider [phone] Reason for Visit * Reason Onset Date Comments Medical Question/Miscellaneous 02/12/2025 Encounter Details Date Type Department Care Team (Late st Contact Info) Description 02/12/2025 Telephone [facility] [address] [address] Jerson Ortega MD [address] [place] [address] Medical Question/Miscellaneous Social History Tobacco Use Types Packs/Day Years [...] than three times a week 12/21/2018 Attends [employer] Services More than 4 times per year [...] on file 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 Pre Arrival Stated CT Chest has been denied by [employer]. Follow up imaging must be done one year after Lung Nodule was found. If imaging has not changed, no further imaging is needed. Appeal must be submitted within 65 days from Feb.09 denial. Appeal must be completed by . Michelle Does message need to be routed? Yes-Action Needed documented in this encounter Plan of Treatment Not on file documented as of this encounter Visit Diagnoses Not on filedocumented in this encounter Care Teams Cad Technician Relationship Specialty Start Date End Date [place] [address] PCP - General Family Medicine 08/10/23 documented as of this encounter
--- OUTSIDE RECORDS SUMMARY | 2025-02-13 01:58 | XMS_ITS | Encounter Summary ---
Author Organization [facility] Healthcare Address [address] [place] [address] Care Team Providers Care Elevator Examiner And Adjuster Name Role Phone Jerson Ortega MD Primary Care Provider [phone] Encounter Details Date Type Department Care Team (Late st Contact Info) Description 01/21/2025 Telephone [facility] [address] [place] [address] Jerson Ortega MD [address] [place] [address] Social History Tobacco Use Types Packs/Day [...] than three times a week 12/21/2018 Attends [employer]dan[employer] Services More than 4 times per year [...] on file 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
--- OUTSIDE RECORDS SUMMARY | 2025-02-13 01:58 | XMS_ITS | Clinical Summary ---
Author Organization [facility] Address [address] 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
--- OUTSIDE RECORDS SUMMARY | 2025-02-13 01:58 | XMS_ITS | Encounter Summary ---
Author Organization [facility] Healthcare Address [address] [place] [address] Care Team Providers Care Care Services Manager Name Role Phone Chay Chester MD Primary Care Provider [phone] Jerson Ortega MD Primary Care Provider [phone] Diamante Kang MA Unavailable [phone] Encounter Details Date Type Department Care Team (Late st Contact Info) Description 03/10/2020 Telephone [facility] [address] [place] [id number] Melani Mejia, [place] Social History Tobacco Use [...] than three times a week 12/21/2018 Attends [employer] Services More than 4 times per year [...] on file Legal Sex 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 02/24/2024 02/28/2024 05/24/2024 3:[address] COVID: Suspected 04/16/2024 04/16/2024 04/16/2024 2:48 PM PROGRAM PROFESSIONAL COVID: Suspected 04/26/2024 04/26/2024 04/26/2024 2:56 PM PROGRAM PROFESSIONAL documented as of this encounter Care Teams Care Services Manager Relationship Specialty Start Date End Date Chay Chester MD PCP - General 08/06/16 08/09/23 Jerson Ortega MD [address] [place] [address] PCP - General Family Medicine 08/10/23 Diamante Kang MA [address] [place] [address] [address] [place] [id number] [employer] Care Toll Lineman 02/13/24 02/13/24 documented as of this encounter
--- OUTSIDE RECORDS SUMMARY | 2025-02-13 01:58 | XMS_ITS | Encounter Summary ---
Author Organization [facility] Healthcare Address [address] [place] [address] Care Team Providers Care Learning Disabilities Teacher Name Role Phone Jerson Ortega MD Primary Care Provider [phone] Reason for Visit * Reason Onset Date Comments Symptom Based Call 04/25/2024 Encounter Details Date Type Department Care Team (Late st Contact Info) Description 04/25/2024 Telephone [facility] [address] [address] Jerson Ortega MD [address] [place] [address] [place] [address] Symptom Based Call Social History [...] than three times a week 12/21/2018 Attends [employer] Services More than 4 times per year [...] on file 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
--- OUTSIDE RECORDS SUMMARY | 2025-02-13 01:58 | XMS_ITS | Clinical Summary ---
Author Organization [facility] Address [address] [place] [address] Care Team Providers Care Printing Agent Name Role Phone Jerson Arana MD Primary Care Provider [phone] Allergies Active Allergy Reactions Criticality Noted Date Comments Adhesive Rash Medium 05/16/2020 Medications blood-glucose meter (ONETOUCH ULTRA2) kit use to check glucose 2x daily 1 kit 0 01/29/20 14 Active insulin syringe-needle U-100 (BD INSULIN SYRINGE ULTRA-FINE) 1 mL 31 gauge x 5/16 syringe USE ONE SYRINGE FOR INJECTION TWICE A DAY 100 Syringe 3 03/13/20 15 Active blood glucose diagnostic (ONETOUCH ULTRA TEST) strip check glucose 3x daily 300 strip 3 01/29/20 14 Active pen needle, diabetic 31 gauge x 1/4 needle use with insulin pen 1/day 1 Box 3 06/02/19 11 Active docusate sodium (COLACE) 100 mg capsuleIndicat ions:constipat ion Take 1 capsule (100 mg total) by mouth 2 (two) times a day Active syringe with needle (BD LUER-JENNIFER SYRINGE) 3 mL 25 gauge x 1 syringe Use to inject b12 once monthly 3 Syringe 3 06/28/19 19 Active syringe with needle, safety (BD Integra Syringe) 3 mL 25 gauge x 1 syringe USE TO INJECT B12 ONCE MONTHLY 3 each 3 06/30/19 23 Active cetirizine (ZyrTEC) 10 mg tablet Take 1 tablet (10 mg total) by mouth daily 90 tablet 3 06/30/19 23 Active cyclobenzaprin e (FLEXERIL) 10 mg tabletIndicati ons:Muscle Spasm Take 1 tablet (10 mg total) by mouth 3 (three) times a day as needed for muscle spasms 30 tablet 06/30/19 23 Active rOPINIRole (Requip) 0.25 mg tablet Take 1 tablet (0.25 mg total) by mouth nightly as needed (as needed) 90 tablet 11 06/30/19 23 Active fluticasone propionate (FLONASE) 50 mcg/actuation nasal spray Administer 2 sprays into each nostril daily 16 g 11 10/29/19 23 Active traMADoL (ULTRAM) 50 mg tablet 11/21/19 Active umeclidinium (Incruse Ellipta) 62.5 mcg/actuation blister with device Inhale 1 puff (62.5 mcg total) daily 90 each 3 01/30/20 24 Active albuterol HFA (PROVENTIL HFA,VENTOLIN HFA,PROAIR HFA) 90 mcg/actuation inhaler Inhale 2 puffs every 6 (six) hours as needed for wheezing 3 each 4 01/30/20 24 Active ondansetron (ZOFRAN) 4 mg tabletIndicati ons:Nausea and Vomiting Take 1 tablet (4 mg total) by mouth every 6 (six) hours as needed for nausea or vomiting 15 tablet 04/16/20 24 Active lancets (OneTouch Delica Lancets) 33 gauge misc Use twice daily to check blood sugars 200 each 3 04/25/20 24 Active ipratropium-al buteroL (DUO-NEB) 0.5-2.5 mg/3 mL nebulizer solution Take 3 mL by nebulization every 6 (six) hours 180 mL 04/26/20 24 Active Additional Information Patient taking differently:3 mL nebulizationEvery 6 hours PRN, pneumonia, Reported on 01/04/2025 doxycycline (VIBRAMYCIN) 100 mg capsule Take 1 tablet/capsule (100 mg total) by mouth 2 (two) times a day 20 capsule 04/26/20 24 Active montelukast (SINGULAIR) 10 mg tablet Take 1 tablet (10 mg total) by mouth nightly 90 tablet 3 04/30/20 24 025 Active insulin lispro (HumaLOG) 100 unit/mL pen for injection Inject 40-50 Units under the skin 3 (three) times a day before meals 45 mL 3 04/30/20 24 Active LANTUS 100 unit/mL (3 mL) pen for injectionIndic ations:Type 2 diabetes mellitus with hyperglycemia, with long-term current use of insulin (HCC) Inject 50 Units under the skin nightly 45 mL 3 06/04/19 25 Active levothyroxine (SYNTHROID) 50 mcg tablet TAKE 1 TABLET BY MOUTH EVERY DAY 90 tablet 3 07/02/[address] (PROTONIX) 40 mg EC tablet TAKE 1 TABLET BY MOUTH EVERY DAY 90 tablet 1 08/17/19 25 Active Additional Information Patient taking differently:40 mg oralDaily PRN, acid reflux, Reported on 01/04/2025 traZODone (DESYREL) 150 mg tablet Take 1 tablet (150 mg total) by mouth nightly as needed for sleep for sleep 90 tablet 2 09/04/19 25 026 Active cyanocobalamin (Vitamin B-12) 1,000 mcg/mL injection Inject 1 mL (1,000 mcg total) into the muscle as instructed every 30 (thirty) days 3 mL 3 09/04/19 25 026 Active insulin syringe-needle U-100 1 mL 31 gauge x 5/16 syringe Use to inject 1-4 times daily as directed. 300 each 4 09/04/19 25 Active promethazine-D M (PROMETHAZINE- DM) 1.25-3 mg/mL syrupIndicatio ns:Viral sinusitis Take 5 mL by mouth 4 (four) times a day as needed for cough 120 mL 09/27/19 25 Active allopurinoL (ZYLOPRIM) 300 mg tablet TAKE 1 TABLET BY MOUTH EVERY DAY 90 tablet 3 10/06/19 25 Active simvastatin (ZOCOR) 10 mg tablet TAKE 1 TABLET BY MOUTH EVERY DAY AT NIGHT 90 tablet 3 10/16/19 25 Active Xarelto 20 mg tablet TAKE 1 TABLET BY MOUTH EVERY DAY 90 tablet 3 10/22/19 25 Active gabapentin (NEURONTIN) 300 mg capsule TAKE 1 CAPSULE BY MOUTH TWICE A DAY 180 capsule 3 10/26/19 25 Active losartan-hydro CHLOROthiazide (HYZAAR) 50-12.5 mg per tablet TAKE 1 TABLET BY MOUTH EVERY DAY 100 tablet 1 11/11/19 25 Active pen needle, diabetic (BD Ultra-Fine Short Pen Needle) 31 gauge x /16 needleIndicati ons:Type 2 diabetes mellitus with hyperglycemia, with long-term current use of insulin ([facility]) INJECT 5 TIMES DAILY 400 each 3 11/15/19 25 Active icosapent ethyL (VASCEPA) 1 gram capsuleIndicat ions:Hyperlipi demia associated with type 2 diabetes mellitus (HCC) TAKE 2 CAPSULES BY MOUTH TWICE A DAY WITH MEALS(2+2=4 CAPSULES DAILY) 360 capsule 3 11/17/19 25 Active dilTIAZem XR 180 mg 24 hr capsule TAKE 1 CAPSULE BY MOUTH EVERY DAY 90 capsule 3 11/17/19 25 Active ondansetron (ZOFRAN) 4 mg tabletIndicati ons:Nausea Take 1 tablet (4 mg total) by mouth every 8 (eight) hours as needed for nausea or vomiting 20 tablet 11/22/19 25 Active tirzepatide (Mounjaro) 12.5 mg/0.5 mL pen injector injectionIndic ations:Type 2 diabetes mellitus with hyperglycemia, with long-term current use of insulin ([facility]) Inject 0.5 mL (12.5 mg total) under the skin every 7 days 2 mL 12/04/19 25 Active colchicine (COLCRYS) 0.6 mg tablet Take 1 tablet (0.6 mg total) by mouth daily for 5 days 5 tablet 01/05/20 25 Active empagliflozin (JARDIANCE) 10 mg tabletIndicati ons:Chronic Kidney Disease,type 2 diabetes mellitus Take 1 tablet (10 mg total) by mouth daily with breakfast 90 tablet 3 01/05/20 25 026 Active escitalopram (LEXAPRO) 5 mg tablet Take 1 tablet (5 mg total) by mouth daily 90 tablet 3 01/10/20 25 026 Active blood-glucose sensor (Dexcom G7 Sensor) device Dexcom G7 sensor use for 10 days to monitor blood sugar. 9 each 3 01/26/20 25 Active tolterodine LA (DETROL LA) 4 mg 24 hr capsuleIndicat ions:Mixed stress and urge incontinence,B enign prostatic hyperplasia with nocturia Take 1 capsule (4 mg total) by mouth daily 90 capsule 3 02/01/20 25 Active tamsulosin (FLOMAX) 0.4 mg extended release capsuleIndicat ions:Benign prostatic hyperplasia with nocturia Take 1 capsule (0.4 mg total) by mouth nightly 90 capsule 3 02/01/20 25 Active blood-glucose sensor (Dexcom G7 Sensor) device 025 Disconti nued(Dup licate order) tamsulosin (FLOMAX) 0.4 mg extended release capsuleIndicat ions:Benign prostatic hyperplasia with nocturia Take 1 capsule (0.4 mg total) by mouth nightly 90 capsule 3 02/01/20 24 025 Disconti nued(Reo rder) tolterodine LA (DETROL LA) 4 mg 24 hr capsuleIndicat ions:Mixed stress and urge incontinence,B enign prostatic hyperplasia with nocturia Take 1 capsule (4 mg total) by mouth daily 90 capsule 3 02/01/20 24 025 Disconti nued(Reo rder) blood-glucose sensor (Dexcom G7 Sensor) device Dexcom G7 sensor use for 10 days to monitor blood sugar. 9 each 3 01/23/20 25 025 Disconti nued(Reo rder) blood-glucose sensor (Dexcom G7 Sensor) device Dexcom G7 sensor use for 10 days to monitor blood sugar. 9 each 3 01/23/20 25 025 Disconti nued(Reo rder) Active Problems Problem Noted Date Diagnosed Date Other constipation 04/30/2024 Acute bronchiolitis 04/30/2024 Assessment & Plan (04/30/2024 7:31 PM CARD FIXER): Complete antibiotics. Continue use of nebulizer or [...] regularly Assessment & Plan (06/04/2024 4:41 PM CARD FIXER): Stable, no significant fatigue or weakness Last hemoglobin close to 10 Will continue to monitor closely Assessment & Plan (02/15/2024 2:32 PM CDT): Patient has chronic anemia; for the 1st time hemoglobin and crit have decreased with hemoglobin below 10; would recommend follow-up with model builder display to evaluate if patient would benefit from [...] daily Assessment & Plan (06/04/2024 4:41 PM CARD FIXER): Stable, well controlled, breathing well, no major [...] Improving with holding medication. Follow-up with his agricultural loan officer for management. Suggested waiting till symptoms completely [...] 09/14/2021 Assessment & Plan (05/04/2022 5:02 PM CARD FIXER): Worsening covid and flu swab negative Azithromycin [...] (07/24/2021): Added automatically from request for surgery [id number] Acute maxillary sinusitis 04/10/2021 Assessment & Plan (04/10/2021 10:51 AM CARD FIXER): Fluticasone amoxicillin and sinus rinses and call [...] success. Assessment & Plan (06/07/2022 5:50 AM CARD FIXER): Retry trazodone and discussed side effects and [...] 04/28/2020 Assessment & Plan (04/28/2020 4:17 PM CARD FIXER): Patient's history and exam is consistent with a full-thickness tear of the rotator cuff. Would recommend an MRI to evaluate the integrity of the cuff initiate appropriate treatment once results are available. Contusion of right knee 04/28/2020 Assessment & Plan (04/28/2020 4:17 PM CARD FIXER): Patient's knee is stable and has no evidence of fracture or loosening of his total knee implant. He has a contusion and likely bled more than average being on blood thinners. Would expect this to continue resorb in the pain to subside but it may take 4-6 weeks. Syncope 04/22/2020 Assessment & Plan (04/22/2020 5:31 PM CARD FIXER): He has had recent unremarkable stress test [...] indicated Assessment & Plan (05/04/2023 11:04 AM CARD FIXER): With fatigue and increasing anemia, will try levothyroxine to see if any benefit. Assessment & Plan (10/28/2022 5:13 PM CDT): Check TSH and free T4 before next visit. Assessment & Plan (06/07/2022 5:48 AM CARD FIXER): Check TSH and FT4 before next visit. Assessment & Plan (12/21/2021 6:31 AM CDT): Asymptomatic and check TSH and FT4 every 612 months. Assessment & Plan (04/28/2021 9:56 AM CARD FIXER): Remains asymptomatic will check TSH and free T4 before next visit. Assessment & Plan (10/24/2020 11:50 AM CDT): He is asymptomatic and will check TSH and FT4 next week and call back for results. Assessment & Plan (04/22/2020 5:29 PM CARD FIXER): No symptoms of hypothyroidism and will check TSH and free T4 before next visit. Assessment & Plan (10/23/2019 9:42 AM CDT): TSH remains borderline as is free T4. I am not totally convinced of his symptomatology yet therefore would recommend continued observation and check again before next visit. Assessment & Plan (05/10/2019 10:15 AM CARD FIXER): Check TSH and free T4 before next [...] daily Assessment & Plan (06/04/2024 4:40 PM CARD FIXER): Stable, no major changes to weight; encourage [...] discussed. Assessment & Plan (04/22/2020 5:30 PM CARD FIXER): Patient is encouraged to lose weight with [...] discussed. Assessment & Plan (05/10/2019 10:17 AM CARD FIXER): Patient is encouraged to lose weight with a combination of caloric reduction and increased exercise. Various strategies discussed. The long-term risks associated with continued morbid obesity discussed. Acquired subluxation of left patella 05/01/2019 Assessment & Plan (05/01/2019 12:16 PM CARD FIXER): Patient has noted some instability the left [...] (08/09/2018): Added automatically from request for surgery [id number] Healthcare maintenance 10/06/2017 Assessment & Plan (10/28/2022 5:14 [...] b.i.d. Assessment & Plan (06/04/2024 4:40 PM CARD FIXER): Stable, generally well controlled; occasional symptoms, mostly [...] gabapentin. Assessment & Plan (05/10/2019 10:16 AM CARD FIXER): Stable on gabapentin. Assessment & Plan (10/18/2018 10:53 AM CDT): Stable on gabapentin. Assessment & Plan (04/04/2018 11:59 AM CARD FIXER): Stable on gabapentin. Assessment & Plan (10/06/2017 4:53 PM CDT): Stable on gabapentin. Assessment & Plan (06/01/2017 3:59 PM CARD FIXER): Stable on gabapentin. Lumbar radiculopathy 11/02/2016 Assessment & Plan (10/18/2018 10:55 AM CDT): [place] and Flexeril as needed on his trip to [place]. Warned of sedating side effects. Benign prostatic hyperplasia 10/25/2016 Assessment & Plan (06/04/2024 4:40 PM CARD FIXER): Stable, well controlled; urination has been good per patient, continue tamsulosin 0.4 mg nightly Assessment & Plan (06/07/2022 5:48 AM CARD FIXER): Stable on his tamsulosin. Assessment & Plan (10/06/2017 4:53 PM CDT): PSA normal and no complaints today. Overactive bladder 10/25/2016 Assessment & Plan (05/10/2019 10:15 AM CARD FIXER): Continue VESIcare for now but referred to the Urology for urodynamic testing and other workup of his urge incontinence. Assessment & Plan (06/01/2017 3:59 PM CARD FIXER): Stable on VESIcare. Allergic rhinitis 10/25/2016 Assessment & Plan (05/10/2019 10:17 AM CARD FIXER): Add Flonase to Zyrtec. Tobacco abuse 10/25/2016 Assessment & Plan (09/14/2023 10:09 AM CDT): Not well controlled, smoking about 5-10 cigarettes per day; has some dyspnea; would recommend continued evaluation, check PFTs for possible COPD Assessment & Plan (04/04/2018 12:00 PM CARD FIXER): Patient is congratulated on smoking cessation efforts. [...] dyspnea Assessment & Plan (07/02/2023 11:12 AM CARD FIXER): Increase B12 injections to every 4 weeks. Repeat level before next visit Assessment & Plan (12/21/2021 6:30 AM CDT): Continue B12 supplementation check levels before next visit. Assessment & Plan (04/28/2021 9:55 AM CARD FIXER): Continue B12 supplementation check level before next visit. Assessment & Plan (10/24/2020 11:48 AM CDT): Continue supplementation and check level next week and call back for results. Assessment & Plan (10/23/2019 9:43 AM CDT): Continue supplementation check level in 1 year. Assessment & Plan (05/10/2019 10:15 AM CARD FIXER): B12 borderline low needs to be more compliant with his administration. Check level again before next visit. Assessment & Plan (10/18/2018 10:50 AM CDT): Continue B12 supplementation and repeat laboratory workup before next visit due to recurrent anemia. Assessment & Plan (04/04/2018 11:57 AM CARD FIXER): Continue B12 injections twice monthly and repeat B12 level and CBC before next visit. Assessment & Plan (10/06/2017 4:50 PM CDT): Increase B12 injections to twice monthly and repeat level before next visit. Assessment & Plan (06/01/2017 4:00 PM CARD FIXER): B12 injections and check levels before next [...] allopurinol. Assessment & Plan (06/01/2017 3:56 PM CARD FIXER): Asymptomatic on allopurinol. Colcrys p.r.n. Type 2 [...] weekly Assessment & Plan (06/04/2024 4:38 PM CARD FIXER): Stable, well controlled, last A1c at goal; [...] discussed. Assessment & Plan (07/02/2023 11:13 AM CARD FIXER): Stop metformin for increased creatinine. Continue Ozempic and insulin. Increase efforts at low sugar/carb diet increase exercise and weight loss. Follow-up with his agricultural loan officer as they direct Assessment & Plan (10/28/2022 5:13 PM CDT): Continue current medication regimen follow up with his agricultural loan officer as they direct. Assessment & Plan (06/07/2022 5:48 AM CARD FIXER): Continue current medication regimen follow up with his agricultural loan officer as they direct. Assessment & Plan (12/21/2021 6:30 AM CDT): A1c, LDL, and blood pressure currently well controlled on current regimen. Check a yearly diabetic eye exam and blood sugars daily. Monofilament testing is abnormal. Assessment & Plan (04/28/2021 9:55 AM CARD FIXER): A1c, LDL, and blood pressure currently well controlled on current regimen. Check a yearly diabetic eye exam and blood sugars daily. Monofilament testing is intact. Assessment & Plan (10/24/2020 11:49 AM CDT): Check A1c next week and call back for results. Continue current medications as managed by his agricultural loan officer. Assessment & Plan (04/22/2020 5:29 PM CARD FIXER): A1c, LDL, and blood pressure currently well controlled on current regimen. Check a yearly diabetic eye exam and blood sugars daily. Monofilament testing is abnormal Assessment & Plan (10/23/2019 9:42 AM CDT): A1c, LDL, and blood pressure currently well controlled on current regimen. Check a yearly diabetic eye exam and blood sugars daily. Monofilament testing is abnormal. Assessment & Plan (05/10/2019 10:15 AM CARD FIXER): A1c, LDL, and blood pressure currently well [...] abnormal. Assessment & Plan (04/04/2018 11:58 AM CARD FIXER): A1c, LDL, and blood pressure currently well [...] A1c below goal. Continue follow-up with his agricultural loan officer for management of his insulin and other medications. Assessment & Plan (06/01/2017 3:57 PM CARD FIXER): A1c close to goal and should follow up his agricultural loan officer who manages his insulin and other medications. [...] control Assessment & Plan (06/04/2024 4:39 PM CARD FIXER): Stable, well controlled; EGFR at 29, stable over the past year; will continue to work to ensure appropriate blood sugar control; starting Mounjaro; may benefit from SGLT2 inhibitor Assessment & Plan (02/01/2024 5:52 PM CDT): Not well controlled, advancing; remains below 30 for the past 6 months; would recommend starting SLG 2 inhibitors; patient to follow with model builder display for recommendations Assessment & Plan (09/14/2023 10:08 AM CDT): Not well controlled, advancing; follows with Neurology for observation; recent ultrasound demonstrated no significant disease, no stones or hydronephrosis; single simple cyst Continue with appropriate blood pressure and blood sugar control; avoid nephrotoxic medications Assessment & Plan (07/02/2023 11:14 AM CARD FIXER): Check bilateral renal ultrasound and call back [...] results. Assessment & Plan (06/07/2022 5:48 AM CARD FIXER): Renal function stable and should avoid NSAIDs if able. Assessment & Plan (12/21/2021 6:30 AM CDT): Renal function stable and should avoid NSAIDs. Assessment & Plan (04/28/2021 9:56 AM CARD FIXER): Renal function stable and should avoid NSAIDs if able. Assessment & Plan (10/24/2020 11:49 AM CDT): Check renal function next week and avoid NSAIDs if able. Assessment & Plan (04/22/2020 5:30 PM CARD FIXER): Renal function stable and should avoid NSAIDs. Assessment & Plan (10/23/2019 9:44 AM CDT): Renal function stable and should avoid NSAIDs. Assessment & Plan (05/10/2019 10:16 AM CARD FIXER): Renal function stable. Should avoid NSAIDs. Assessment & Plan (10/18/2018 10:53 AM CDT): Renal function stable and should avoid NSAIDs. Assessment & Plan (04/04/2018 11:58 AM CARD FIXER): Renal function stable and should avoid NSAIDs. Assessment & Plan (10/06/2017 4:52 PM CDT): Renal function stable. Avoid NSAIDs. Assessment & Plan (06/01/2017 3:57 PM CARD FIXER): Avoid NSAIDs and renal function stable. Major depressive disorder 09/22/2013 Overview (08/12/2016): DEPRESSIVE DISORDER NEC Assessment & Plan (06/04/2024 4:39 PM CARD FIXER): Stable not well controlled; patient having more [...] citalopram. Assessment & Plan (04/22/2020 5:30 PM CARD FIXER): Stable on citalopram. Assessment & Plan (10/23/2019 9:43 AM CDT): Increase exercise and counseling recommended. Consideration of adding Wellbutrin. Could also change citalopram to SNRI. Assessment & Plan (05/10/2019 10:16 AM CARD FIXER): Stable without medication. Assessment & Plan (10/18/2018 10:51 AM CDT): Senior renewal requested and patient will be referred for further evaluation and treatment. Assessment & Plan (10/06/2017 4:52 PM CDT): Well controlled on citalopram. Assessment & Plan (06/01/2017 3:57 PM CARD FIXER): Stable on his citalopram. Atrial fibrillation 09/22/2013 Overview (08/13/2016): Atrial fibrillation Assessment & Plan (09/03/2024 3:07 PM CDT): Stable, regular rate and rhythm today; continue Xarelto 20 mg daily diltiazem 180 mg daily Assessment & Plan (06/04/2024 4:40 PM CARD FIXER): Stable, well controlled; patient reports no symptoms [...] daily Assessment & Plan (07/02/2023 11:11 AM CARD FIXER): Rate controlled on diltiazem and recommend decrease Xarelto to 15 mg daily for reduced creatinine clearance Assessment & Plan (10/28/2022 4:49 PM CDT): Rate control on diltiazem and continue Xarelto for anticoagulation. Assessment & Plan (06/07/2022 5:49 AM CARD FIXER): Rate controlled and will continue Xarelto for anticoagulation. Assessment & Plan (12/21/2021 6:30 AM CDT): Rate controlled will continue Xarelto for anticoagulation. Assessment & Plan (04/28/2021 9:56 AM CARD FIXER): Rate controlled and will continue Xarelto for anticoagulation. Assessment & Plan (10/24/2020 11:49 AM CDT): Rate controlled will continue Xarelto for anticoagulation. Assessment & Plan (04/22/2020 5:30 PM CARD FIXER): Rate controlled and will continue Xarelto for anticoagulation. Assessment & Plan (10/23/2019 9:44 AM CDT): Rate controlled on diltiazem and will continue Xarelto for anticoagulation. Assessment & Plan (05/10/2019 10:17 AM CARD FIXER): Rate controlled on diltiazem. Continue Xarelto for anticoagulation. Follow up with his director biostatistics as they direct. Assessment & Plan (10/18/2018 10:54 AM CDT): Rate controlled on his diltiazem and continue Xarelto for anticoagulation. Assessment & Plan (04/04/2018 11:59 AM CARD FIXER): Rate controlled on diltiazem no continue Xarelto through his director biostatistics office. Assessment & Plan (10/06/2017 4:52 PM CDT): Rate controlled on diltiazem and digoxin and Cardiology recommended no anticoagulation. Assessment & Plan (06/01/2017 3:59 PM CARD FIXER): Rate controlled on his digoxin and cardiology [...] diltiazem. Assessment & Plan (05/10/2019 10:16 AM CARD FIXER): Stable on diltiazem. Assessment & Plan (10/18/2018 10:53 AM CDT): Compensated on his diltiazem. Assessment & Plan (10/06/2017 4:53 PM CDT): Remains well controlled on his diltiazem. Assessment & Plan (06/01/2017 3:59 PM CARD FIXER): Remains compensated on his current medications. Hypertension associated with type 2 diabetes marivel litus 09/22/2013 Overview (01/30/2024): >>OVERVIEW FOR BENIGN HYPERTENSION WRITTEN ON 08/12/2016 5:13 AM BY INTERFACE, PROBLEM LIST CONVERSION BENIGN HYPERTENSION Assessment & Plan (09/03/2024 3:08 PM CDT): Stable, well controlled, blood pressure at goal; no chest pain pressure orthostatics Continue losartan-hydrochlorothiazide 50-12.5 mg daily Assessment & Plan (06/04/2024 4:40 PM CARD FIXER): Stable, well controlled, blood pressure at goal; [...] WRITTEN ON 06/07/2022 5:49 AM BY GUNNAR CHESTER MD Stable on his losartan, hydrochlorothiazide, cardia [...] HYPERLIPIDEMIA WRITTEN ON 08/12/2016 5:13 AM BY JANNETTE, PROBLEM LIST CONVERSION HYPERLIPIDEMIA NEC/NOS Assessment & Plan (09/03/2024 3:09 PM CDT): Stable; well controlled, last lipid panel at goal; encourage updated lipid panel Continue simvastatin 10 mg nightly Assessment & Plan (06/04/2024 4:41 PM CARD FIXER): Stable, well controlled, lipids at goal Continue [...] HYPERLIPIDEMIA WRITTEN ON 12/21/2021 6:30 AM BY GUNNAR [...] relief. Assessment & Plan (04/22/2020 5:29 PM CARD FIXER): Patient is compliant with the CPAP machine [...] may find pain management helpful. He has [id number] arthritic changes of the hip joints in [...] 02/21/2024 Assessment & Plan (05/29/2020 3:42 PM CARD FIXER): Patient has a partial-thickness tear of his [...] well. Assessment & Plan (03/17/2020 11:00 AM CARD FIXER): Patient's history and exam is consistent with [...] 02/21/2024 Assessment & Plan (05/01/2019 12:15 PM CARD FIXER): Patient acutely as a strain of the right patella tendon. There's no palpable defects and he is walking reasonably well. Physical therapy would likely be beneficial as he is having difficulties with stairs Acute meniscal tear of right knee 03/16/2018 07/24/2018 Assessment & Plan (03/16/2018 2:26 PM CARD FIXER): Patient has exam that would be consistent [...] Patient was seen and cleared by his director biostatistics recently and advised to discontinue his Xarelto [...] deep vein thrombosis Arthritis of right knee 10/27/2017 11/0 12/2017 Assessment & Plan (12/01/2017 4:45 PM CDT): [...] needed Assessment & Plan (03/16/2018 2:25 PM CARD FIXER): Patient has moderate arthritis of the right [...] Encounters Date Type Department Care Team Description 02/12/2025 Telephone [facility] [address] [place] [address] Jerson Arana MD Medical Question/Faizacelltuou s 01/31/2025 11:20 AM CDT Office Visit [facility] [address] [facility] [address] [place] [address] Mervat Yuan, JAKE Benign prostatic hyperplasia with nocturia (Primary Dx); Mixed stress and urge incontinence; Weak urinary stream 01/29/2025 [facility]phone [facility] [address] [address] Jerson Arana MD 01/24/2025 Telephone [facility] [address] [address] Jerson Arana MD Medical Question/Miscellaneou s; Call Back 01/21/2025 Telephone [facility] [address] [address] Jerson Arana MD 01/04/2025 10:15 AM CDT Office Visit [facility] Primary Care at [place] [address] [facility] [address] [place] [phone] Jerson Arana MD Chronic gout without tophus, unspecified cause, unspecified site (Primary Dx); Former smoker; Type 2 diabetes mellitus with hyperglycemia, with long-term current use of insulin (HCC); 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); Anemia due to stage 4 chronic kidney disease (HCC) 01/04/2025 Telephone [facility] [address] [facility] [address] [address] Ramonita Rodriguez 01/03/2025 1:25 PM CDT Lab [address] [address] 01/03/2025 11:20 AM CDT Lab [address] [address] 01/03/2025 11:17 AM CDT - 01/03/2025 11:59 PM CDT Hospital Encounter [facility] Cardiology [address] [place] [address] Encounter for other preprocedural examination Discharge Disposition: Discharge to home or self care 12/25/2024 Telephone [facility] [address] [address] [address] [address] Fred Ortega 12/07/2024 10:55 AM CDT Lab [address] [address] Screening PSA (prostate specific antigen) 12/07/2024 10:50 AM CDT Lab [address] [address] Chronic kidney disease, unspecified CKD stage; Hypertension, unspecified type; Diabetes mellitus without complication (HCC) 12/07/2024 Results Follow-Up [facility] Primary Care at [address] [place] [phone] Jerson Arana MD PSA screen 12/06/2024 Orders Only Nephrology Tony Harris MD Chronic kidney disease, unspecified CKD stage (Primary Dx); Hypertension, unspecified type; Diabetes mellitus without complication (HCC) 11/21/2024 6:30 PM CDT Office Visit [facility] Convenient Care at [address] [place] [phone] Paulette Quiroga NP Constipation, unspecified constipation type (Primary Dx); Nausea; [...] rhinitis Allergic Rhiniti s Atrial fibrillation (HCC) 1980 Atrial fibrillation Sleep apnea 1994 Sleep apnea [...] CABG ; Coronary artery disease Brother 4 Jacqeulyn nary artery disease; Hypertension Brother 5 Hypertension; [...] than three times a week 12/21/2018 Attends [employer] More than 4 times per year [...] on file 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 Gender Identity Not on file Sexual Orientation [...] Additional history exists Hemoglobin A1C 06/09/2025 12/07/2024, 08/08, 04/10/2024, Additional history exists Fall Risk Assessment 09/03/2025 09/03/2024, 09/14/2023, 05/04/2023, Additional history exists Well Visit 65+ 09/03/2025 09/03/2024, 10/08, 10/27/2021, Additional history exists Lipid Panel 10/19/2025 10/19/2024, 05/0 12/2023, 04/27/2023, Additional history exists Albumin Creatinine Ratio, Urine 12/07/2025 12/07/2024, 08/29/2024, 04/27/2023, Additional history exists Prostate Cancer Screening-PSA 12/07/2025, 10/26/2022, 10/20/2021, Additional history exists eGFR 01/03/2026 01/03/2025, 05/2024, 08/29/2024, Additional history exists Depression Screening 01/04/2026 01/04/2025, 09/03/2024, 01/30/2024, Additional history exists DTaP/Tdap/Td Vaccine (3 - Td or Tdap) 10/10/2028 10/10/2018, 01/23/2008, 05/09/2007 Pneumococcal vaccine 65+ Completed 015, 07/19/2014, 06/28/2013, Additional history exists Zoster Vaccine Completed 05/30/2020, 12/2019, 03/04/2015 Colon Cancer Screening-CT Colonography Discontinued [...] 02/10/2024, 06/23/2012 Medical Devices Implanted Type Area Vice President Planning Device Identifier Shelf Expiration Date Model / Serial / Lot Cement Bone Palacos R+G Gentamicin High Viscosity - [id number] Implanted:Qty: 2 on 05/17/2018 by Reza Gonzalez MD at [facility] Right: Knee [employer] 12/06/2020 [id number] / / [id number] [employer] [id number] Vanguard 72.5mm Cemented Posterior Stabilize Open Box Knee Right - [id number] Implanted:Qty: 1 on 05/17/2018 by Reza Gonzalez MD at [facility] Right: Knee [employer] 03/16/2027 [id number] / / [id number] [employer] [id number] 79mm I Beam Knee Tray Tibial Cocr - [id number] Implanted:Qty: 1 on 05/17/2018 by Reza Gonzalez MD at [facility] Right: Knee [employer] 02/23/2028 [id number] / / [id number] [employer] [id number] Ascent 37mm 1 Peg Wire Knee Anterior Posterior Component Patellar - [id number] Implanted:Qty: 1 on 05/17/2018 by Reza Gonzalez MD at [facility] Right: Knee [employer] 03/08/2023 [id number] / / [id number] Brng 79/[id number] Vanguard E1 Knee Post Stab Tibial - [id number] Implanted:Qty: 1 on 05/17/2018 by Reza Gonzalez MD at [facility] Right: Knee [employer] 06/22/2022 [id number] / / [id number] [employer] [id number] Biomet Ascent Maxim Primary Lock Bar Knee Component Tibial Tray - [id number] Implanted:Qty: 1 on 12/20/2018 by Reza Gonzalez MD at [facility] Right: Knee [employer] [id number] 09/19/2028 [id number] / / [id number] [employer] [id number] Vanguard 79/[id number] Posterior Stabilize Knee Bearing Tibial E1 - [id number] Implanted:Qty: 1 on 12/20/2018 by Reza Gonzalez MD at [facility] Right: Knee [employer] [id number] 03/07/2023 [id number] / / [id number] [employer] [id number] 37mm 3 Peg Knee Standard Component Patellar Series A - [id number] Implanted:Qty: 1 on 12/20/2018 by Reza Gonzalez MD at [facility] Right: Knee [employer] [id number] 11/09/2023 [id number] / / [id number] [employer] [id number] Palacos R+G High Viscosity Cement Bone Gentamicin Arthroplasty - [id number] Implanted:Qty: 1 on 12/20/2018 by Reza Gonzalez MD at [facility] Right: Knee [employer] [id number] 12/06/2020 [id number] / / [id number] Procedures Procedure Name Priority Date/Time Associated Diagnosis Comments MEASURE POST VOID RESIDUAL Routine 01/31/2025 11:49 AM CDT Benign prostatic hyperplasia with nocturia EGFR Routine 01/03/2025 1:32 PM CDT CRP [...] Recently Relevant to Health Maintenance Results * Measure post void residual (01/31/2025 11:49 AM CDT) Narrative Estefania Juárez LPN - 01/31/2025 11:49 AM CDT Measurement of post-voiding residual urine and/or bladder capacity by ultrasound, non-imaging. PVR = 7 mL us Mervat Yuan OPTICAL INSTRUMENT INSPECTOR NURSING ASSESSMENTS Final Res ult * (ABNORMAL) eGFR (01/03/2025 1:32 PM CDT) [...] CDT 01/03/2025 2:20 PM CDT Sunni Telles OPTICAL INSTRUMENT INSPECTOR LAB BLOOD ORDERABLES Final Result Performing Organization Address City/[facility]/ZIP Co de Phone Number [facility] ([place]) 1 [facility] [place] [address] * CRP (acute phase) (01/03/2025 1:32 PM CDT) CRP 4.5 <=10.0 mg/L [facility] ([place]) Blood 01/03/2025 1:32 PM CDT 01/03/2025 2:20 PM CDT Sunni Telles OPTICAL INSTRUMENT INSPECTOR LAB BLOOD ORDERABLES Final Result [facility] ([place]) 1 [facility] [place] [address] * (ABNORMAL) Comprehensive metabolic panel (01/03/2025 1:32 PM CDT) Sodium 139 135 - 145 mmol/L [facility] ([place]) Potassium, pl 4.5 3.3 - 4.9 mmol/L [facility] ([place]) Chloride 105 97 - 110 mmol/L [facility] ([place]) CO2 24 22 - 32 [...] 01/03/2025 2:20 PM CDT us Sunni Telles OPTICAL INSTRUMENT INSPECTOR LAB BLOOD ORDERABLES Final Result [facility] ([place]) 1 [facility] Department of Laboratories [place], [place] [id number] * ECG 12 lead (01/03/2025 11:48 AM CDT) 01/03/2025 11:4 4 AM CDT Narrative [facility] - 01/03/2025 2:51 PM CDT Vent Rate: 87 bpm RR Interval: 684 msec [place] Interval: 244 msec QRS Duration: 81 msec QT Interval: 355 msec QTC Interval: 400 msec P-R-T Man: 96 - -1 - 75 degrees IMPRESSION: SINUS RHYTHM WITH FIRST DEGREE AV BLOCK LOW QRS VOLTAGE IN PRECORDIAL LEADS [QRS DEFLECTION < 1.0 mV IN CHEST LEADS] ABNORMAL ECG no ch Electronically Signed By: Elgin Huynh MD us Sid Vela MD ECG ORDERABLES Final Resu lt [facility] * Differential, auto (01/03/2025 11:24 AM CDT) [...] revised on 2017. Monocyte pct 8.6 % [facility] ([place]) Comment: Interpretive Data Percent cell count reference [...] revised on 2017. Basophil pct 0.6 % [facility] ([place]) Comment: Interpretive Data Percent cell count reference ranges are not reported, since discordance with absolute values may lead to misinterpretation of CBC data. Current Interpretive Data was last revised on 2017. Blood 01/03/2025 11:2 4 AM CDT 01/03/2025 11:49 AM CDT us Sunni Telles OPTICAL INSTRUMENT INSPECTOR LAB BLOOD ORDERABLES Final Result [facility] ([place]) 1 [facility] [place] [address] * Urinalysis reflex to microscopic and culture Urine (01/03/2025 11:24 AM CDT) Color, ur Yellow Yellow Clarity, ur Clear Clear [facility] ([place]) Specific gravity, ur 1.019 1.003 - 1.030 [facility] ([place]) pH, urine 5.5 [facility] ([place]) Comment: Interpretive Data U rine pH is affected by diet, medications, systemic acid-base disturbances, and renal tubular function. pH may affect urinary stone formation. For example, urine pH below 6.0 may help reduce the tendency for calcium phosphate stones and pH greater than 6.0 may reduce the tendency for uric acid stone formation. Source: [facility] [employer] Current Interpretive Data was last revised on 2017 Protein, ur ql Negative Negative [facility] ([place]) Glucose, ur ql Negative Negative [facility] ([place]) Ketones, ur Negative Negative [facility] ([place]) Bilirubin, ur Negative Negative [facility] ([place]) Blood, ur Negative Negative [facility] ([place]) Urobilinogen, ur <2.0 <2.0 mg/dL [facility] ([place]) Nitrite, ur Negative Negative [facility] ([place]) Leukocyte esterase, ur Negative Negative [facility] ([place]) UA reflex comment Reflex conditions for microscopic UA and culture not met. [facility] ([place]) Urine 01/03/2025 11:2 4 AM CDT 01/03/2025 11:48 AM CDT Sunni Telles OPTICAL INSTRUMENT INSPECTOR LAB MICROBIOLOGY - GENERAL ORDERABLES Final Result [facility] ([place]) 1 [facility] [place] [address] * (ABNORMAL) CBC with auto differential (01/03/2025 [...] (ANIKET) MCHC 34.3 32.3 - 35.7 g/dL [facility] ([place]) RDW CV 14.1 11.1 - 14.9 % [facility] ([place]) RDW SD 49.1(H) 35.7 - 48.1 fL [facility] ([place]) NRBC abs 0.00 0.00 - 0.01 K/cumm [facility] ([place]) Blood 01/03/2025 11:2 4 AM CDT 01/03/2025 11:49 AM CDT Sunni Telles OPTICAL INSTRUMENT INSPECTOR LAB BLOOD ORDERABLES Final Result [facility] ([place]) 1 [facility] [place] [address] * (ABNORMAL) Erythrocyte sedimentation rate (01/03/2025 11:24 AM CDT) Erythrocyte sedimentation rate 34(H) 1 - 20 mm/hr Blood 01/03/2025 11:2 4 AM CDT 01/03/2025 11:49 AM CDT Sunni Telles OPTICAL INSTRUMENT INSPECTOR LAB BLOOD ORDERABLES Final Result Performing Organization Address City/[facility]/ZIP Co de Phone Number [facility] ([place]) 1 [facility] [place] [address] * (ABNORMAL) eGFR (12/07/2024 11:07 AM CDT) [...] 7 AM CDT 12/07/2024 11:19 AM CDT Tony Harris MD LAB BLOOD ORDERABLES Final Re sult [facility] ([place]) 1 [facility] [place] [address] * Differential, auto (12/07/2024 11:07 AM CDT) [...] revised on 2017. Monocyte pct 8.0 % [facility] ([place]) Comment: Interpretive Data [...] revised on 2017. Basophil pct 0.5 % [facility] ([place]) Comment: Interpretive Data Percent cell count reference ranges are not reported, since discordance with absolute values may lead to misinterpretation of CBC data. Current Interpretive Data was last revised on 2017. Blood 12/07/2024 11:0 7 AM CDT 12/07/2024 11:19 AM CDT Tony Harris MD LAB BLOOD ORDERABLES Final Re sult Performing Organization Address [facility] Co de Phone Number [facility] ([place]) 1 [facility] [place] [place] [address] * PSA screen (12/07/2024 11:07 AM CDT) PSA-Total 0.25 <=6.20 ng/mL [facility] ([place]) Comment: Interpretive Data AGE SEX REFERENCE INTERVAL [...] 7 AM CDT 12/07/2024 11:19 AM CDT Jerson Arana MD LAB BLOOD ORDERABLES Lyly l Result Performing Organization Address [facility] Co de Phone Number [facility] ([place]) 1 [facility] [place] [address] * (ABNORMAL) CBC with auto differential (12/07/2024 11:07 AM CDT) WBC 6.36 3.80 - 9.90 K/cumm Hgb 10.7(L) 13.0 - 17.5 g/dL [facility] ([place]) Hct 30.9(L) 38.9 - 50.3 % [facility] ([place]) Plt 164 150 - 400 K/cumm [facility] ([place]) MPV 8.4(L) 9.1 - 12.3 fL [facility] ([place]) RBC 3.25(L) 4.30 - 5.80 M/cumm [facility] ([place]) MCV 95.1 81.3 - 96.4 fL [facility] ([place]) MCH 32.9 27.1 - 33.3 pg [facility] ([place]) MCHC 34.6 32.3 - 35.7 g/dL [facility] ([place]) RDW CV 13.3 11.1 - 14.9 % [facility] ([place]) RDW SD 46.5 35.7 - 48.1 fL [facility] ([place]) NRBC abs 0.00 0.00 - 0.01 K/cumm [facility] ([place]) Blood 12/07/2024 11:0 7 AM CDT 12/07/2024 11:19 AM CDT Narrative [facility] - 12/07/2024 11:21 AM CDT Labs can be done earlier than the date on the lab order per office. Tony Harris MD LAB BLOOD ORDERABLES Final Re sult [facility] ([place]) [address] [place] [address] Department [place] [address] * (ABNORMAL) Hemoglobin A1c (12/07/2024 11:07 AM CDT) Hgb A1C 6.4(H) 4.0 - 5.6 % [facility] ([place]) Estimated Average Glucose 137 mg/dL [facility] ([place]) Comment: The ADA recommends reporting an estimated Average Glucose (eAG) with all Hemoglobin A1c results using the equation derived from a study of 507 normal and diabetic adults. Minority populations were underrepresented and children were not included. (Diabetes Care 31:9469-1919, 2008). The eAG is not equivalent to a fasting glucose. Testing performed by: [facility], [facility], [place], [address] Blood 12/07/2024 11:0 7 AM CDT 12/07/2024 11:19 AM CDT Narrative [facility] ([place]) - 12/07/2024 11:35 AM CDT Labs can be done earlier than the date on the lab order per office. us Tony Harris MD LAB BLOOD ORDERABLES Final Re sult [facility] ([place]) 1 [facility] [place] [address] * (ABNORMAL) Comprehensive metabolic panel (12/07/2024 11:07 AM CDT) Sodium 137 135 - 145 mmol/L [facility] ([place]) Potassium, pl 4.2 3.3 - 4.9 mmol/L [facility] ([place]) Chloride 102 97 - 110 mmol/L [facility] ([place]) CO2 22 22 - 32 mmol/L [facility] ([place]) Anion gap 13 2 - 15 mmol/L [facility] ([place]) BUN 45(H) 6 - 25 mg/dL [facility] ([place]) Creatinine 2.30(H) 0.80 - 1.30 mg/dL [facility] ([place]) Glucose 149 70 - 199 mg/dL [facility] ([place]) [...] Final Re sult [facility] ([place]) 1 [facility] [place] [address] * Albumin Creatinine Ratio, Urine (12/07/2024 10:52 AM CDT) Albumin Ur <12.0 mg/L Comment: Interpretive Data No reference range established. Current interpretive data was last revised 2018. Testing performed by: [address] [address] Creatinine Ur 71.0 mg/dL [facility] ([place]) Comment: Interpretive Data No reference range established. Current interpretive data was last revised 2018. Testing performed by: [facility], [address] [place] [address]., [address] Albumin Creatinine Ratio, Ur <17 1 - 29 mg/g [facility] ([place]) Comment:Testing performed by : [address] [address] Urine 12/07/2024 10:5 2 AM CDT 12/07/2024 5:14 PM CDT Narrative [facility] ([place]) - 12/07/2024 6:10 PM CDT Labs can be done earlier than the date on the lab order per Dr. Harris office. us Tony Harris MD LAB URINE ORDERABLES Final Re sult [facility] ([place]) 1 [facility] [place] [address] * (ABNORMAL) Lipid panel (10/19/2024 9:46 AM [...] 9:46 AM CDT 10/19/2024 9:49 AM CDT us Huong Corley NP LAB BLOOD ORDERABLES Fi nal Result [facility]) 1 [facility] [place] [address] * CT Abdomen Pelvis WO Contrast (02/10/2024 [...] immunosuppression, or patients with known primary cancer. http://pubs.rsna.org/doi/pdf/10.1148/radiol.8321016951 THIS IS AN ELECTRONICALLY VERIFIED FINAL REPORT 02/10/2024 2:50 PM - Electronically signed by Alber Gilbert M.D. AG: [employer] Report ID: [id number] Reading Location: [place] [address] Procedure Note Alber Gilbert MD - 02/10/2024 [...] withimmunosuppression, or patients with known primary cancer. http://pubs.rsna.org/doi/pdf/10.1148/radiol.3288016696 THIS IS AN ELECTRONICALLY VERIFIED FINAL REPORT 02/10/2024 2:50 PM - Electronically signed by Alber Gilbert M.D. AG: [employer] Report ID: [id number] Reading Location: [place] [address] Saman Gonzales MD [facility] CT PROCEDURES Final Result * Diabetic Eye Exam (03/11/2023) 03/11/2023 us Generic External Data Provider [facility] SAL Major Final Result * COLONOSCOPY (09/09/2021 9:48 AM CDT) Anatomical Region Laterality Modality Other Narrative Procedure Note Anthony Chandler MD - 09/09/2021 9:48 AM CDT [facility] Endoscopy Lab Patient Name: Miguel Angel Starr Procedure Date: 09/09/2021 9:48 AM Date of : 1945 Admit Type: Outpatient Age: 75 Gender: Male Note Status: Finalized Attending MD: Anthony Chandler M.D. Procedure Date: 09/09/2021 Procedure: Colonoscopy Indications: High risk colon cancer surveillance: Personalhistory of colonic polyps, Last colonoscopy: August 2018 Providers: Anthony Chandler M.D., Rebecca Kennedy, CHANDNI, DarneiceM. Merritt, Tile Installer Referring MD: Gunnar Chester M.D. Medicines: Monitored [...] bowel preparation was evaluated using the BBPS (Orient Bowel Preparation Scale) with scores of: Right [...] for surveillance. Procedure Code(s): --- Professional --- 77671, Colonoscopy, flexible; with removal of tumor(s), polyp(s), or other lesion(s) by snare technique 44251, 59, Colonoscopy, flexible; with biopsy,single or multiple Diagnosis Code(s): --- Professional --- Z86.010, Personal history of colonic polyps D12.0, Benign neoplasm of cecum D12.4, Benign neoplasm of descending colon CPT copyright 2020 [employer]. All rights reserved. The codes documented in this report are preliminary and upon validation engineer reviewmay be revised to meet current compliance requirements. Electronically signed by Anthony Chandler MD Anthony Chandler M.D. 09/09/2021 10:29:40 AM Number of Addenda: 0 Note Initiated On: 09/09/2021 9:48 AM Anthony Chandler MD ENDOSCOPY PROCEDURES Edited Resu lt - Final * CT Lung Cancer Screening (08/12/2016) Anatomical Region Laterality Modality Chest N/A Computed Tomogra phy Historical Provider IMG CT PROCEDURES Final R esult * DIABETES FOOT EXAM (08/02/2016) Diabetic Foot Exam Unknown Historical Provider HEALTH MAINTENANCE Final Result from Last 3 Months or Most Recently Relevant to Health Maintenance Insurance U[employer] MEDICARE ADVANTAGE [facility] MEDICARE [facility] MEDICARE Advance Directives For more information, please contact: [phone] Documents on File Type Date Recorded Patient Telegraph Inspector Expl anation ADVANCE DIRECTIVE 12/23/2018 10:33 AM ANNA R OF CRIB TENDER-MEDICAL * Full Code (Latest Code Status on [...] Communication Yvette Starr Spouse Health Care Agent Care Teams Printing Agent Relationship Specialty Start Date End Date Jerson Arana MD [address] [place] [address] PCP - General Family Medicine 08/10/23
--- OUTSIDE RECORDS SUMMARY | 2025-02-13 01:58 | XMS_ITS | Patient Health Record ---
Author Organization [facility] Address [address] [facility] [address] [place], [place] [address] Care Team Providers Care Regional Sales Consultant Name Role Phone Mannie Chestery Primary Care Provider Tony Darby Unavailable [phone] Allergies No Known Allergies Reason For Referral [...] tablet Orally Once a day Active Umeclidinium Duke 62.5 MCG/ACT 1 puff Inhalation Once a [...] tablet Orally zeus ry 6 hours Active [place] 5-325 MG 1-2 tablets Orally every 4 [...] Risk Notes Problem DM - Diabetes mellitus (23617406) DM (diabetes mellitus) (E11.9) Active confirmed hgba1c 6.4 Problem Atrial fibrillation (60292112) Atrial fibrillation (I48.91) Active confirmed on zarelto Problem Chronic kidney disease (010407995) CKD (chronic kidney disease) (N18.9) Active confirmed creat is stable at 2.3 Problem Obesity (246158426) Obesity (E66.9) Active confirmed pt is crooks s lost 8 lbs Problem Hypertension (68629924) HTN (hypertension) (I10) Active confirmed BP is controlled Vital Signs Heart Rate 82 /min 12/12/2024 Temperature 97.3 degrees Fahrenheit 12/12/2024 Blood pressure diastolic 79 mm Hg 12/12/2024 Height 72 in 12/12/2024 Blood pressure systolic 121 mm Hg 12/12/2024 Weight 282.2 lbs 12/12/2024 BMI 38.27 kg/m2 12/12/2024 Encounters Encounter Location Date Provider Diagnosis [facility] [address] [place], [place] [id number] 05/23/2024 Tony Harris CKD (chronic kidney disease) N18.9 ; HTN (hypertension) I10 ; DM (diabetes mellitus) E11.9 ; Obesity E66.9 and Atrial fibrillation I48.[address] [facility] [address] [place] [address] [address] [place], [place] [id number] 09/03/2024 Tony Harris CKD (chronic kidney disease) N18.9 ; DM (diabetes mellitus) E11.9 ; HTN (hypertension) I10 ; Obesity E66.9 and Atrial fibrillation I48.91 [facility] [address] [place], [place] [id number] 12/12/2024 Tony Harris CKD (chronic kidney disease) [...] Provider Name:Tony Harris , 04/10/2025 02:15:00 PM, [address], [address] [facility], [place], [place], [id number], Insurance Providers Payer Name Payer Address Payer Phone Subscriber Number Group Number Insured Name Patient Relationship to Insured Coverage Start Date Coverage End Date [employer] Medicare PPO [address] [place], [place] [phone] [id number] Miguel Angel Starr Self - patient is the insured Medical (General) History Medical History History ICD Code CKD DM HTN atrial fib BPH
--- OUTSIDE RECORDS SUMMARY | 2025-02-13 01:59 | XMS_ITS | Encounter Summary ---
Author Organization [facility] Address [address] [place] [address] Care Team Providers Care Customer Service Clerk Name Role Phone Jerson Ortega MD Primary Care Provider [phone] Reason for Visit * Reason Onset Date Comments Medical Question/Miscellaneous 01/24/2025 Call Back 01/24/2025 Encounter Details Date Type Department Care Team (Late st Contact Info) Description 01/24/2025 Telephone Family Physicians [facility] [address] [facility] [place] [address] Jerson Ortega MD [address] [place] [address] Medical Question/Miscellaneous ; Call Back Social History [...] than three times a week 12/21/2018 Attends [facility] More than 4 times per year [...] on file 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 Kenji stated you can fax order to their emergency fax# [phone]. Does message need to be routed? Yes-Action Needed * Telephone Encounter - Jana Yap - 01/24/2025 3:50 PM CDT Medical Question/Miscellaneous Caller???s Concern: Cinthya with [employer] called asking if request for diabetic supplies faxed 01/22 were received. I advised her that I didn't see anything in chart. She is going to fax again. Does message need to be routed? No documented in this encounter Plan of Treatment Not on file documented as of this encounter Visit Diagnoses Not on filedocumented in this encounter Care Teams Customer Service Clerk Relationship Specialty Start Date End Date Jerson Ortega MD [address] [place] [address] PCP - General Family Medicine 08/10/23 documented as of this encounter
--- OUTSIDE RECORDS SUMMARY | 2025-02-13 02:00 | XMS_ITS | Encounter Summary ---
Author Organization [facility] Address [address] [place] [address] Phone Care Team Providers Care Employee Benefits Attorney Name Role Phone Chay Chester MD Primary Care Provider [phone] Jerson Ortega MD Primary Care Provider [phone] Diamante Kang MA Unavailable [phone] Encounter Details Date Type Department Care Team (Late st Contact Info) Description 09/22/2017 Orders Only [facility] ProviderSpencer MD [place] [address] Social History Tobacco Use Types Packs/Day Years Used Date Smoking Tobacco: Every Day Cigarettes Smokeless Tobacco: Former Quit: 10/24/2016 Comments:Smoking History Pac ks/day: 1 Packs Alcohol Use Standard Drinks/Week Comments Yes 0 (1 standard drink = 0.6 oz pur e alcohol) Sex and Gender Information Value Date Recorded Sex Assigned at Not on file 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 02/24/2024 02/28/2024 05/24/2024 3:[address] COVID: Suspected 04/16/2024 04/16/2024 04/16/2024 2:48 PM PUBLIC SCHOOL TEACHER COVID: Suspected 04/26/2024 04/26/2024 04/26/2024 2:56 PM PUBLIC SCHOOL TEACHER documented as of this encounter Care Teams Employee Benefits Attorney Relationship Specialty Start Date End Date Chay Chester MD PCP - General 08/06/16 08/09/23 Jerson Ortega MD [address] [place] [address] PCP - General Family Medicine 08/10/23 Diamante Kang MA [address] [place] [address] DR FITZPATRICK [address] [place] [id number] ACO Care Bottom Filler 02/13/24 02/13/24 documented as of this encounter
--- OUTSIDE RECORDS SUMMARY | 2025-02-13 02:00 | XMS_ITS | Encounter Summary ---
Author Organization [facility] Address [address] [place] [address] Phone Care Team Providers Care Wagon Driver Name Role Phone Chay Chester MD Primary Care Provider [phone] Derek Schmidt DPM Unavailable [phone] Reason for Visit * Reason Comments Medication Refill Encounter Details Date Type Department Care Team (Late st Contact Info) Description 07/15/2020 Refill [facility] - Neurology [facility] [address] [facility] [place] [id number] Dat Luque MD [address] [place] [phone] Medication Refill Social History Tobacco Use Types [...] on filedocumented in this encounter Care Teams Wagon Driver Relationship Specialty Start Date End Date Chay Chester MD PCP - General Internal Medicine 11/02/16 Derek Schmidt DPM Consulting Physician Podiatry 11/02/16 documented as of this encounter
--- OUTSIDE RECORDS SUMMARY | 2025-02-13 02:00 | XMS_ITS | Encounter Summary ---
Author Organization [facility] Address [address] [place] [address] Care Team Providers Care Adhesive Bandage Machine Operator Name Role Phone Jerson Ortega MD Primary Care Provider [phone] Encounter Details Date Type Department Care Team (Latest Contact Info) Description 03/23/2024 [place] [address] 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
--- OUTSIDE RECORDS SUMMARY | 2025-02-13 02:00 | XMS_ITS | Clinical Summary ---
Author Organization [facility] Address [address] [facility] [place] [address] Phone Care Team Providers Care Refueling Ramp Supervisor Name Role Phone Chay Chester MD Primary Care Provider [phone] Derek Schmidt DPM Unavailable [phone] Allergies No known active allergies Medications [...] Comments Blood Pressure 128/64 06/29/2018 1:05 PM NEONATAL SOCIAL WORKER Pulse 77 06/29/2018 1:05 PM NEONATAL SOCIAL WORKER Temperature 37.3 C (99.1 F) 06/29/2018 1:05 PM NEONATAL SOCIAL WORKER Respiratory Rate 18 06/29/2018 1:05 PM NEONATAL SOCIAL WORKER Oxygen Saturation 97% 06/29/2018 1:05 PM NEONATAL SOCIAL WORKER Inhaled Oxygen Concentration - - Weight 129.6 kg (285 lb 12.8 oz) 06/29/2018 1:05 PM NEONATAL SOCIAL WORKER Height 182.9 cm (6') 06/29/2018 1:05 PM NEONATAL SOCIAL WORKER Body Mass Index 38.76 06/29/2018 1:05 PM NEONATAL SOCIAL WORKER Plan of Treatment Health Maintenance Due Date [...] W/ ESTIMATED GLUCOSE Routine 06/21/2017 8:02 AM NEONATAL SOCIAL WORKER Diabetic glomerulopathy (HCC) CMP (COMPREHENSIVE METABOLIC PANEL) Routine 03/10/2017 3:46 PM CDT Diabetic polyneuropathy associated with type 2 diabetes mellitus (HCC) HM COLONOSCOPY Routine 07/11/2012 from Last 3 Months or Most Recently Relevant to Health Maintenance Results * HEMOGLOBIN A1C W/ ESTIMATED GLUCOSE (06/21/2017 8:02 AM NEONATAL SOCIAL WORKER) HGB-A1C 6.0 4.4 - 6.4 % 06/21/2017 9:05 AM NEONATAL SOCIAL WORKER [facility] Est Average Glucose 125.5 mg/dL 06/21/2017 9:05 AM NEONATAL SOCIAL WORKER [facility] Blood specimen (specimen) Venipuncture / Unknown 06/21/2017 8:02 AM NEONATAL SOCIAL WORKER 06/21/2017 8:11 AM NEONATAL SOCIAL WORKER Narrative [facility] - 06/21/2017 9:05 AM NEONATAL SOCIAL WORKER HEMOGLOBIN A1C: DIABETIC PATIENTS: WELL-CONTROLLED: 6.2 - 7.0 INTERMEDIATE WELL-CONTROLLED: 7.0 - 9.0 POORLY-CONTROLLED: >9.0 us Feliciano Mars MD CHEMISTRY ORDERABLES Final Res ult [facility] [address] [place] [address] * (ABNORMAL) CMP (COMPREHENSIVE METABOLIC PANEL) (03/10/2017 3:46 PM CDT) Pathologist [facility] SODIUM 138 131 - 143 mmol/L 03/10/2017 5:17 PM CDT [facility] POTASSIUM 4.2 3.5 - 5.1 mmol/L 03/10/2017 5:17 PM CDT [facility] CHLORIDE 101 100 - 110 mmol/L 03/10/2017 5:17 PM CDT [facility] CO2, VENOUS 28 22 - 32 mmol/L 03/10/2017 5:17 PM CDT [facility] ANION GAP 13.2 8.0 - 20.0 mmol/L 03/10/2017 5:17 PM CDT [facility] GLUCOSE 94 70 - 105 mg/dL 03/10/2017 5:17 PM CDT [facility] BUN 31 10 - 31 mg/dL 03/10/2017 5:17 PM CDT [facility] CREATININE, BLOOD 1.64(H) 0.60 - 1.30 mg/dL 03/10/2017 5:17 PM CDT [facility] BUN/CREATININE RATIO 19 12 - 20 ratio 03/10/2017 5:17 PM CDT [facility] TOTAL PROTEIN 7.1 6.0 - 8.3 g/dL 03/10/2017 5:17 PM CDT [facility] ALBUMIN 4.3 3.5 - 5.2 g/dL 03/10/2017 5:17 PM CDT [facility] A/G RATIO 1.5 1.0 - 2.0 03/10/2017 5:17 PM CDT [facility] CALCIUM 9.7 8.9 - 10.3 mg/dL 03/10/2017 5:17 PM CDT [facility] T BILI 0.2(L) 0.3 - 1.2 mg/dL 03/10/2017 5:17 PM CDT [facility] SGOT (AST) 23 1 - 40 U/L 03/10/2017 5:17 PM CDT [facility] SGPT (ALT) 21 1 - 40 U/L 03/10/2017 5:17 PM CDT [facility] ALKALINE PHOSPHATASE 78 40 - 130 U/L 03/10/2017 5:17 PM CDT [facility] GFR, EST. NONAFRICAN 42(L) >=60 03/10/2017 5:17 PM CDT [facility] GFR, EST. 50(L) >=60 03/10/2017 5:17 PM CDT [facility] Comment: Creatinine Clearance is the preferred criteria for selecting drug dose adjustments in renally impaired patients. The GFR is provided as additional pertinent clinical information. GFR is reported in mL/min/1.73 sq m. Blood specimen (specimen) Venipuncture / Unknown 03/10/2017 3:46 PM CDT 03/10/2017 4:28 PM CDT us Dat Luque MD CHEMISTRY ORDERABLES Final R esult [facility] [address] [place] [address] * HM COLONOSCOPY (07/11/2012) Reza Perdomo DO PROCEDURE/MINOR SURGICAL ORDERA BLES Final Result from Last 3 Months or Most Recently Relevant to Health Maintenance Care Teams Refueling Ramp Supervisor Relationship Specialty Start Date End Date Chay Chester MD PCP - General Internal Medicine 11/02/16 Derek Schmidt DPM Consulting Physician Podiatry 11/02/16
[2025-02-13] MEDS: LACTATED RINGERS 1,000 ML 30 ML IV CONT ×2 (06:45→09:17)
--- NOTE | 2025-02-13 07:12 | WPDHPUPDATE1 ---
History and Physical Update Update Date/Time: 02/13/25 07:12 History and Physical has been reviewed, including an updated exam of the patient. There are NO changes in the patient's condition. Risks, benefits, and alternatives have been discussed and questions answered. Patient agrees to proceed with procedure.
[2025-02-13 07:15] LABS: INR 1.0; Prothrombin Time 13.1 Seconds (11.1-14.7)
--- NOTE | 2025-02-13 07:27 | WPDANESEPPF ---
Anes - Initial Pre Proc Eval Procedure: Operation Date: 02/13/25 07:30 Proposed Procedures p T9 Laminotomy For Placement of Spinal Cord Stimulator - Mary Kay Andrea MD Date/Time: 02/13/25 07:27 Surgeon: Mary Kay Andrea MD Pre Op Diagnosis: Chr low back pain Patient Data Age: 79 Gender: M Height: 1.8 m Weight: 121.6 kg Last Vital Signs Temp 97.5 F L 02/13/25 06:10 Pulse 62 02/13/25 06:10 Resp 20 02/13/25 06:10 BP 114/53 L 02/13/25 06:10 Pulse Ox 96 02/13/25 06:10 O2 Del Method Room Air 02/13/25 06:10 Allergies Allergy/AdvReac Type Severity Reaction Status Date / Time No Known Allergies Allergy Verified 02/13/25 06:11 Home Medications ?Medication ?Instructions ?Recorded ?Confirmed ?Type allopurinol 300 mg tablet 300 mg PO DAILY 01/23/25 02/13/25 History diltiazem HCl 180 mg capsule,24 180 mg PO DAILY 01/23/25 02/13/25 History hr,extended release (Tiazac) gabapentin 300 mg capsule 300 mg PO BID 01/23/25 02/13/25 History icosapent ethyl 1 gram capsule 2 g PO BID 01/23/25 02/13/25 History simvastatin 10 mg tablet 10 mg PO DAILY 01/23/25 02/13/25 History tamsulosin 0.4 mg capsule 0.4 mg PO DAILY 01/23/25 02/13/25 History cetirizine 10 mg capsule (All Day 10 mg PO DAILY 01/31/25 02/13/25 History Allergy (cetirizine)) cyanocobalamin (vitamin B-12) 1,000 mcg subcut MONTHLY 01/31/25 02/13/25 History 1,000 mcg/mL injection solution docusate sodium 100 mg capsule 100 mg PO DAILY 01/31/25 02/13/25 History (Colace) escitalopram oxalate 5 mg tablet 5 mg PO DAILY 01/31/25 02/13/25 History insulin glargine 100 unit/mL (3 35 unit subcut QPM 01/31/25 02/13/25 History mL) subcutaneous pen (Lantus Solostar U-100 Insulin) insulin lispro 100 unit/mL 40 unit subcut TID 01/31/25 02/13/25 History subcutaneous pen levothyroxine 50 mcg tablet 50 mcg PO DAILY 01/31/25 02/13/25 History losartan 50 mg-hydrochlorothiazide 1 tablet PO DAILY 01/31/25 02/13/25 History 12.5 mg tablet multivit,Ca,min-iron 8 mg-folic tablet PO DAILY 01/31/25 History acid 200 mcg-lycopene 600 mcg tablet (Centrum Men) pantoprazole 40 mg tablet,delayed 40 mg PO DAILY 01/31/25 02/13/25 History release rivaroxaban 20 mg tablet (Xarelto) 20 mg PO DAILY 01/31/25 02/13/25 History ropinirole 0.5 mg tablet 0.5 mg PO PRN 01/31/25 02/13/25 History tirzepatide 12.5 mg/0.5 mL 12.5 mg subcut WEEKLY 01/31/25 02/13/25 History subcutaneous pen injector (Mounjaro) tolterodine 4 mg capsule,extended 4 mg PO Q24H 01/31/25 02/13/25 History release 24 hr trazodone 150 mg tablet 150 mg PO HS 01/31/25 02/13/25 History Laboratory Tests 02/13/25 02/13/25 06:26 06:55 PT 13.1 Seconds (11.1-14.7) INR 1.0 POC Capillary Glucose 131 H mg/dl (65-105) Patient hx anesthesia problems: none Family hx anesthesia problems: none Results Review: All pre-operative results and documents have been reviewed as part of the pre-operative evaluation. [facility] Past Medical History Medical History Coronary artery disease Afib Gout Sleep apnea HTN (hypertension) Diabetes Arthritis Anemia Allergies Surgical History Surgical History History of back surgery History of bilateral knee replacement Family History Family History Mother Hypertension Cancer Heart problem Father Hypertension Cerebrovascular accident Social History Social History (Reviewed 01/23/25 @ 14:04 by Zarina Pérez [facility] Smoking packs per day: 1 Smoking cigarettes per day: 20.0 Years smoked: 25 Smoking pack-years: 25.00 Smoking status: Former smoker Tobacco type: cigarettes Smoking end date: 10/08/23 Alcohol intake: current Drinks per week: 7 Alcohol use details: occasionally Substance use: never Substance use type: does not use Do You Feel Safe in your Home?: Yes Lack of Transportation: No Lack of Food: Never True Current Housing: I Have Housing Concerned About Future Housing: No Difficulty Paying Gas/Electric Bills: No Difficulty Paying for Meds: No Currently Unemployed: No Education: Associate Degree Difficulty w/ Childcare or Family Care: No Living arrangements: with family Spiritual care concerns: No Anes - Eval Final PreProcedure Day of Procedure 02/13/25 07:27 Patient weight: obese Heart: regular rate and rhythm Lungs: clear to auscultation Airway: Mallampati scale (history of difficult intubation per letter from [facility]) class III Neurological: alert and oriented Last oral intake: >/= 8 hours ASA classification: III Emergent: no Anesthetic plan: proceed Anesthesia type and monitoring: general ETT and standard monitoring Results Review: All pre-operative results and documents have been reviewed as part of the pre-operative evaluation. Informed Consent: The patient's anesthetic plan and its attendant risks and benefits were discussed with the patient/family/POA. Questions were solicited and answers provided to the satisfaction of the patient/family/POA.
--- NOTE | 2025-02-13 07:33 | SUR.PREOP ---
0730-[id number] result remains unavailable, Dr. Andrea and Dr. Tejada aware and okay to proceed.
[2025-02-13] MEDS: ceFAZolin 3 GM/D5W 100 ML 100 ML IVPB (07:36)
[2025-02-13] MEDS: VANCOMYCIN HCL 1,000 MG VIAL 500 MG TOPICAL (08:17)
--- NOTE | 2025-02-13 09:22 | W.PM.PROC2 ---
Procedure Note - Detailed Date of Procedure 02/13/25 Pre-op Diagnosis Chr low back pain Post-op Diagnosis Same Procedure Performed 1. T9 laminotomy for placement of spinal cord stimulator paddle and generator 2. Use of C-arm for fluoroscopy Surgeon Mary Kay Andrea MD Inventory Worker Reza Anesthesia General Description of Procedure The patient was brought to the OR where general anesthesia was induced. The patient was turned prone onto the OR table with Kwabena frame. All pressure points were padded. C-arm was used to plan the level of the thoracic incision. The planned left gluteal incision was marked. The surgical site was prepped and draped in usual sterile fashion. Perioperative antibiotics were given. Local anesthesia was injected into the planned incisions. A 10-blade scalpel was used to open the planned left gluteal incision, and a bovie was used to create a subcutaneous pocket inferiorly. The pocket was packed with a wet Raytec. Next, the thoracic incision was opened with the scalpel, and the soft tissue was dissected with the bovie. The laminae were exposed bilaterally at T9. This was confirmed with the C-arm. A laminotomy was performed at the T9 level with the Leksell, high-speed drill, and kerrisons. The laminotomy opening was widened laterally. Cranially, a curved currette, Woodsen, and 3-penfield were used to separate the dura from the laminae. The paddle stimulator was then placed into the epidural space. The C-arm was brought in to visualize placement. Midline placement across the desired level was achieved on the second pass. Anchors were placed over the leads which were attached to the muscle with a 2-0 silk suture. The leads were tunneled to the gluteal incision. The leads were connected to the generator which was then placed into the gluteal pocket. The generator was secured with a 2-0 silk suture. All incisions were irrigated copiously. Hemostasis was ensured in the thoracic incision with the bipolar and floseal. The fascia was closed with 0 vicryl. The dermis was closed with 2-0 vicryl. The dermis at the generator site was closed with 2-0 vicryl. The skin was closed at both incisions with 4-0 monocryl. Dermabond was then placed. The patient was returned supine, extubated, and transferred to PACU. Billing codes: 03645, 38219 Estimated Blood Loss 25 Drains No Packing No Pathology None sent Complications None Condition Stable Disposition PACU [facility] Billing Surgery - Charge Forward: Surgery Billing
[2025-02-13] MEDS: fentaNYL CITRATE INJ (*CRX) 100 MCG/2 ML VIAL 25 MCG IV PUSH ×4 (09:43→09:52)
[2025-02-13] MEDS: oxyCODONE HCL (*CRX) 5 MG TAB IR PO (10:33)
--- NOTE | 2025-02-13 14:32 | SUR.PHASEII ---
1100 PT HAS TINY SUPERFICIAL ABRASION AND TINY BRUISE TO TOP LIP; NO ACTIVE BLEEDING; DR. GARCIA CONFIRMED THAT ABRASION/BRUISE OCCURRED DURING INTUBATION.
== END 2025-02-13 11:23 | disposition home or self-care (01) ==
PROVIDERS: PCP Hospitalist; Visit Provider Neurological Surgery
PROC: (CPT 63685; principal; 2025-02-13 07:30)
DX: Z45.42 Encounter for adjustment and management of neurostimulator (principal); G89.29 Other chronic pain; I10 Essential (primary) hypertension; E11.9 Type 2 diabetes mellitus without complications; D64.9 Anemia, unspecified; I25.10 Atherosclerotic heart disease of native coronary artery without angina pectoris; G47.30 Sleep apnea, unspecified; I48.91 Unspecified atrial fibrillation; I44.0 Atrioventricular block, first degree; M19.90 Unspecified osteoarthritis, unspecified site; E66.9 Obesity, unspecified; Z68.37 Body mass index [BMI] 37.0-37.9, adult; Z79.4 Long term (current) use of insulin; Z79.01 Long term (current) use of anticoagulants; Z79.85 Long-term (current) use of injectable non-insulin antidiabetic drugs; Z98.890 Other specified postprocedural states; Z98.1 Arthrodesis status; Z87.891 Personal history of nicotine dependence; Z80.9 Family history of malignant neoplasm, unspecified; Z82.49 Family history of ischemic heart disease and other diseases of the circulatory system
CPT/HCPCS: 63685; 63655; 36415; 71046; 82948; 85610; 99199; A9270; C1778; C1820; J0330; J0690; J1100; J2003; J2371; J2405; J2704; J3010; J3373; J7120